=== PATIENT | female | born 1965 | race Caucasian/White ===

== ENCOUNTER 2020-12-07 09:08 | Emergency (ER) | payer OTHER, SELFPAY ==
--- NOTE | ~2020-12-07 | CT_ITS ---
EXAMINATION: CT brain wo con DATE: 12/07/2020 11:59 INDICATION: Altered mental status TECHNIQUE: Computed tomography (CT) of the head was performed without intravenous contrast. Sagittal and coronal reconstructions were performed. The mA was adjusted according to patient size. Iterative reconstruction technique was employed. The dose-length product was 908.00 mGy-cm. COMPARISON: head CT dated 12/01/2014 FINDINGS: Moderate-sized region of encephalomalacia in the anterior left frontal lobe and small region in the a nterior left temporal lobe which could represent sequela of prior infarct or trauma. Additional uncha nged small old lacunar infarct at the posterior left basal ganglia. There is moderate scattered white matter hypoattenuation consistent with chronic small vessel ischemic disease. No acute intracranial hemorrhage, acute infarction or abnormal extra axial fluid collection. Symmetric prominence of the luis lci and ventricles consistent with moderate age-appropriate diffuse cerebral and cerebellar volume lo ss. No mass/mass effect. The orbits, paranasal sinuses and mastoid air cells are normal. IMPRESSION: 1. No acute intracranial process. 2. Unchanged regions of encephalomalacia in the anterior left frontal and temporal lobes which could represent sequela of prior infarct or trauma. 3. Small old lacunar infarct at the left basal ganglia. 4. Age-related changes including moderate diffuse volume loss and moderate scattered white matter hyp oattenuation consistent with chronic small vessel ischemic disease. Reviewed, dictated and finalized at location A. IMPRESSION: 1. No acute intracranial process. 2. Unchanged regions of encephalomalacia in the anterior left frontal and tempo ral lobes which could represent sequela of prior infarct or trauma. 3. Small old lacunar infarct at the left basal ganglia. 4. Age-related changes including moderate diffuse volume loss and moderate scat tered white matter hypoattenuation consistent with chronic small vessel ischemi c disease.
[2020-12-07 08:41] VITALS: BP 144/106; PULSE 99; RESP 18; TEMP 36.6; O2SAT 95
--- NOTE | 2020-12-07 08:54 | ECG_ITS ---
Measurements Intervals [place] Rate: 91 P: 64 WI: 156 QRS: -9 QRSD: 82 T: 52 QT: 354 QTc: 437 Interpretive Statements SINUS RHYTHM DELAYED PRECORDIAL R/S TRANSITION BASELINE ARTIFACT- II, III, AVR, AVL, AVF, V1-V6 BORDERLINE ECG Electronically Signed On 12-07-2020 12:16:17 CDT by Varun Stearns D.O.
--- NOTE | 2020-12-07 09:09 | ED.GENADULT ---
HPI - General Adult General Chief complaint: Recheck/Abnormal Lab/Rx Stated complaint: elevated dilantin levels Source: patient and EMS History of Present Illness HPI narrative: Patient is a 54 y/o female sent from [place] for elevated Dilantin level. Patient had labs drawn on 11/27, approximately 10 days ago. The results showed Dilantin of 27. She is poor historian, but has no complaint at this time. She denies any pain. Related Data Home Medications Medication Instructions Recorded Confirmed Pro-Stat AWC 12/07/20 acetaminophen [Tylenol] 650 mg PO Q4-5H PRN 12/07/20 bisacodyl 10 mg PO ONCE 12/07/20 divalproex mg PO 12/07/20 donepezil [Aricept] 5 mg PO HS 12/07/20 furosemide [Lasix] 20 mg PO DAILY 12/07/20 gabapentin 300 mg PO TID 12/07/20 lorazepam [Ativan] 1 mg PO BID 12/07/20 mirtazapine [Remeron] 7.5 mg PO HS 12/07/20 ahbhxbptchct-ojk-pjul-FA-vit K tablet PO 12/07/20 [Adults Multivitamin] olanzapine 5 mg PO HS 12/07/20 oxycodone mg PO 12/07/20 phenytoin sodium extended 100 mg PO DAILY 12/07/20 [Dilantin Extended] polyethylene glycol 3350 [Miralax] 17 g PO DAILY 12/07/20 sennosides [senna] 8.6 mg PO BID 12/07/20 warfarin [Coumadin] 4 mg PO DAILY 12/07/20 Allergies Allergy/AdvReac Type Severity Reaction Status Date / Time cephalexin [From Keflex] Allergy Unknown Verified 12/07/20 08:48 Review of Systems Review of Systems: ROS unobtainable: Yes unobtainable due to mental status Exam Const: General: no acute distress and well developed Orientation/consciousness: oriented to person, oriented to place and confusion HENMT: Head: normocephalic Ears: external ears normal General nose exam: Normal external nose present Eyes: General: appearance normal, both eyes and all related structures Conjunctivae: conjunctivae normal Neck: Neck: normal visual inspection and full ROM Chest: Chest palpation & inspection: normal inspection of the chest and no tenderness Resp: Effort & Inspection: normal respiratory effort Auscultation: clear to auscultation bilaterally Cardio: Rate: regular rate Rhythm: regular rhythm GI: GI Palp: No abdominal tenderness and Yes Soft to palpation Skin: General skin exam: normal color and turgor normal Neuro: General: oriented to person, oriented to place and confusion Cognition (Neuro): normal cognition Extrem: General: full ROM and amputation noted Above the knee: bilateral Psych: Appearance: grossly normal Mental Status: mental status grossly normal Affect: normal affect Course Consultations Consultation #1: Discussed with MINE DEVELOPMENT ENGINEER Camille Longo (patient's care provider) about labs. She states that patient also has somewhat confused lately. Will do head CT and UA. Plan discharge if those are negative. Date: 12/07/20 Time: 11:40 Vital Signs Vital signs: Vital Signs Temperature 36.6 C 12/07/20 08:41 Pulse Rate 99 12/07/20 08:41 Respiratory Rate 18 12/07/20 08:41 Blood Pressure 144/106 H 12/07/20 08:41 Pulse Oximetry 95 12/07/20 08:41 Temperature 36.6 C 12/07/20 08:41 Pulse Rate 82 12/07/20 15:31 Respiratory Rate 20 12/07/20 15:31 Blood Pressure 136/78 12/07/20 15:31 Pulse Oximetry 97 12/07/20 15:31 Medical Decision Making Vital Signs Vital Signs: Vital Signs Temperature 36.6 C 12/07/20 08:41 Pulse Rate 99 12/07/20 08:41 Respiratory Rate 18 12/07/20 08:41 Blood Pressure 144/106 H 12/07/20 08:41 Pulse Oximetry 95 12/07/20 08:41 Temperature 36.6 C 12/07/20 08:41 Pulse Rate 82 12/07/20 15:31 Respiratory Rate 20 12/07/20 15:31 Blood Pressure 136/78 12/07/20 15:31 Pulse Oximetry 97 12/07/20 15:31 Lab Data Result diagrams: 12/07/20 09:48 12/07/20 09:48 Labs: Lab Results 12/07/20 12/07/20 12/07/20 Range/Units 09:48 09:48 09:48 WBC 6.8 (4.5-10.0) K/mm3 RBC 4.78 (4.2-5.4) M/mm3 Hgb 14.3 (12.0-15.0) g/dL Hct 45.5 (37.0-47.0) % M
[2020-12-07 10:17] VITALS: BP 150/108; PULSE 89; RESP 18; O2SAT 98
[2020-12-07 10:23] LABS: Basophils Percent Auto 0.4 % (0.2-1.2); Eosinophils Percent Auto 0.4 % (0-4.4); Hematocrit 45.5 % (37.0-47.0); Hemoglobin 14.3 g/dL (12.0-15.0); Immature Granulocyte Absolute 0.04 K/mm3 (0.00-0.031); Immature Granulocyte Percent A 0.6 % (0-0.5); Lymphocytes Percent Auto 38.2 % (18.3-44.2); Mean Corpuscular HGB Conc 31.4 g/dl (32-36); Mean Corpuscular Hemoglobin 29.9 pg (26-34); Mean Corpuscular Volume 95.2 fl (80-100); Mean Platelet Volume 9.1 fl (7.4-10.4); Monocytes Absolute Auto 0.5 K/mm3 (0.1-0.6); Monocytes Percent Auto 6.8 % (2.6-8.5); Neutrophils Absolute Auto 3.6 K/mm3 (1.3-6.7); Neutrophils Percent Auto 53.6 % (45.5-73.1); Platelet Count Result 464 k/mm3 (150-375); Red Blood Count 4.78 M/mm3 (4.2-5.4); Red Cell Distribution Width 18.9 % (11.5-14.5); White Blood Count 6.8 K/mm3 (4.5-10.0)
[2020-12-07 10:34] LABS: Alanine Aminotransferase 87 U/L (4-35); Albumin Level 4.5 g/dL (3.5-5.1); Alkaline Phosphatase 154 U/L (38-126); Anion Gap 12 mmol/L (8-16); Aspartate Amino Transferase 57 U/L (14-36); Bilirubin,Total 0.3 mg/dL (0.2-1.3); Blood Urea Nitrogen 11 mg/dL (7-17); Calcium 9.7 mg/dL (8.4-10.2); Carbon Dioxide 21 mmol/L (22-30); Chloride 109 mmol/L (98-107); Estimated Glomerular Filt Rate > 60; Glucose 119 mg/dL (65-110); Potassium 4.2 mmol/L (3.4-5.0); Sodium 142 mmol/L (137-145)
[2020-12-07 10:49] LABS: Phenytoin Dilantin 5 ug/mL (10-20)
[2020-12-07 12:35] VITALS: BP 139/94; PULSE 88; RESP 16; O2SAT 96
[2020-12-07 14:11] LABS: Add Urine Microscopic? YES; Appearance Urine Clear (Clear); Bilirubin Urine Negative (Negative); Blood Urine Negative (Negative); Color Urine Straw (Yellow); Glucose Urine UA Negative (Negative); Ketones Urine Negative (Negative); Leukocyte Esterase Ur Negative LEU/UL (Negative); Nitrate Urine Negative (Negative); Protein Urine Negative (Negative); RBC Urine 0-2 /hpf (0-2); Specific Grav Ur 1.012 (1.001-1.035); Urobilinogen Urine Negative mg/dL (<2.0); WBC Urine 0-3 /hpf
--- NOTE | 2020-12-07 15:25 | PC.NURSE ---
made contact with van to transfer pt back to [facility]. van is on their way now
[2020-12-07 15:31] VITALS: BP 136/78; PULSE 82; RESP 20; O2SAT 97
--- NOTE | 2020-12-07 15:32 | PC.NURSE ---
van has arrived and is aware the pt is going [facility]
--- NOTE | 2020-12-07 15:34 | PC.NURSE ---
Report given to [facility] at this time and transferred to [facility].
== END 2020-12-07 15:35 ==
PROVIDERS: Emergency Provider Emergency Medicine
DX: R41.82 Altered mental status, unspecified (principal); Z79.01 Long term (current) use of anticoagulants; R94.31 Abnormal electrocardiogram [ECG] [EKG]
CPT/HCPCS: 36415; 51701; 70450; 80053; 80185; 81001; 85025; 93005; 99284

== ENCOUNTER 2024-04-08 20:21 | Inpatient (IN) | payer OTHER, SELFPAY ==
--- NOTE | ~2024-04-08 | XR_ITS ---
Portable chest x-ray Comparison: 04/08/2024 Clinical History: Shock Findings: Right IJ line remains in place. Lungs are clear, without focal consolidation or definite p leural effusion. Cardiomediastinal silhouette is stable. Bones and soft tissues are unremarkable. Impression: Clear lungs. Right IJ line in place. Reviewed, dictated and finalized at location . IANCE SERVICE TECHNICIAN Impression: Clear lungs. Right IJ line in place.
--- NOTE | ~2024-04-08 | XR_ITS ---
CHEST RADIOGRAPH CLINICAL HISTORY: cough . COMPARISON: None available TECHNIQUE: Single portable view of the chest. FINDINGS The cardiomediastinal silhouette is unremarkable. The lungs are clear. Visualized osseous structures and soft tissues are unremarkable. IMPRESSION: No focal infiltrate or effusion. Reviewed, dictated and finalized at location A. OGRAMMETRIC SURVEYOR
--- NOTE | ~2024-04-08 | XR_ITS ---
XR chest 1V portable 04/13/2024 08:27 Indication: Hypoxia Procedure: AP portable chest Comparison: Comparison to multiple prior studies sequentially, with oldest reviewed study dated 10/20. Findings: Right IJ central line tip in the SVC. Chronic elevation of the left diaphragm. Left basilar atelectasis. Stable cardiomediastinal silhouette. Mild diffuse bilateral interstitial infiltrates. N o significant effusion. No pneumothorax. Impression: 1: Mild diffuse bilateral interstitial infiltrates which may represent edema or pneumonia. Reviewed, dictated and finalized at location B. ORK SPECIALIST Impression: 1: Mild diffuse bilateral interstitial infiltrates which may represent edema or pneumonia.
--- NOTE | ~2024-04-08 | CT_ITS ---
Clinical Indication: Sepsis CT Scan of the Chest, Abdomen, and Pelvis with Contrast: Technique: Contiguous sections were acquired throughout the chest, abdomen, and pelvis after intraven ous administration of 100 cc of Omnipaque 350. Dose reduction technique was used on this scan by anthony forteing automated exposure control and iterative reconstruction technique. The dose-length product (DL P) was 953.65 mGy-cm. Findings: There is no evidence of any significant mediastinal, hilar or axillary lymphadenopathy. The mediastin al soft tissues appear normal. There is no evidence of pleural or pericardial effusion. The lungs are clear, aside from mild bibasilar/dependent atelectatic changes. The liver, spleen, pancreas, gallbladder, adrenals and kidneys are within normal limits. There is ext ensive atherosclerotic calcification of the abdominal aorta, with occlusion of the aorta at its infra renal portion. There is probable partial reconstitution at the bilateral common femoral arteries. No lymphadenopathy. Suspected minimal diffuse large bowel wall thickening. No bowel obstruction. Small bowel unremarkable . Urinary bladder is unremarkable, aside from Rock catheter. No pelvic mass seen. No ascites. T12 comp ression fracture present. Impression: Suspected minimal diffuse large bowel wall thickening. Correlate for infectious/inflammatory colitis, or any possibility of early ischemic bowel. Atherosclerotic calcification of the aorta with complete occlusion of the aorta at its infrarenal asp ect. Probable partial reconstitution at the level of the bilateral common femoral arteries. Consider vascular surgery consultation/follow-up as indicated. Reviewed, dictated and finalized at [facility]. RCYCLE SUBASSEMBLER Impression: Suspected minimal diffuse large bowel wall thickening. Correlate for infectious /inflammatory colitis, or any possibility of early ischemic bowel. Atherosclerotic calcification of the aorta with complete occlusion of the aorta at its infrarenal aspect. Probable partial reconstitution at the level of the bilateral common femoral arteries. Consider vascular surgery consultation/follo w-up as indicated.
--- NOTE | ~2024-04-08 | XR_ITS ---
CHEST RADIOGRAPH CLINICAL HISTORY: line placement . COMPARISON: 04/08/2024 (approximately 2 hours earlier) TECHNIQUE: Single portable view of the chest. FINDINGS Interval placement of a right internal jugular central venous catheter with its tip projecting over t he cavoatrial junction. The remainder of the cardiomediastinal silhouette is otherwise unremarkable. The remainder of the cardiomediastinal silhouette is otherwise unremarkable. The right lung is completely expanded. Blunting of the left costophrenic sulcus is present suggesting a small left-sided pleural effusion. The remainder of the lungs are clear. IMPRESSION: Small left-sided pleural effusion without focal infiltrate. Right internal jugular central venous catheter in excellent position and ready for immediate use. Reviewed, dictated and finalized at location A. FRAMER MACHINE
--- NOTE | ~2024-04-08 | CT_ITS ---
CT head without contrast Indication: Altered mental status COMPARISON: 12/07/2020 Technique: Serial scans were obtained through the brain without the administration of contrast. Dose reduction technique was used on this scan by utilizing automated exposure control and iterative recon struction technique. The dose-length product (DLP) was 681.00 mGy-cm. Findings: There is no evidence of intracranial hemorrhage, mass lesion, or acute infarct. Chronic lef t frontal lobe infarct noted. The ventricles and subarachnoid spaces are dilated, consistent with mod erate atrophy. There is more pronounced cerebellar atrophy. Low attenuation regions are seen within t he periventricular white matter bilaterally, likely representing changes from chronic microvascular i schemic disease. There is no evidence of edema, mass effect or midline shift. The visualized parana bam sinuses and mastoid air cells are clear. Impression: No intracranial hemorrhage, mass, or acute infarct. Moderate generalized cerebral atrophy, with more pronounced, severe cerebellar atrophy. Chronic left frontal lobe infarct with background chronic microvascular ischemic changes in the white matter. Reviewed, dictated and finalized at location . TRIMMING MACHINE OPERATOR Impression: No intracranial hemorrhage, mass, or acute infarct. Moderate generalized cerebral atrophy, with more pronounced, severe cerebellar atrophy. Chronic left frontal lobe infarct with background chronic microvascular ischemi c changes in the white matter.
[2024-04-08 20:22] VITALS: BP 87/61; PULSE 73; RESP 28; TEMP 36.2; O2SAT 92
--- NOTE | 2024-04-08 20:26 | ECG_ITS ---
Test Date: 2024-04-08 23:08:55 Measurements Intervals [place] Rate: 61 P: 68 GA: 167 QRS: -43 QRSD: 82 T: 39 QT: 463 QTc: 467 Interpretive Statements SINUS RHYTHM LEFT AXIS DEVIATION [QRS AXIS < -30] LOW QRS VOLTAGE IN EXTREMITY LEADS [QRS DEFLECTION < 0.5 mV IN LIMB LEADS] POSSIBLE RIGHT VENTRICULAR CONDUCTION DELAY [RSR (QR) IN V1/V2] No previous ECG available for comparison Electronically Signed On 04-11-2024 16:49:29 FILM MASKER by Clayton Magana M.D.
--- NOTE | 2024-04-08 20:46 | ED_ITS ---
HPI - General Adult General Chief complaint: Altered Mental Status Stated complaint: SICK CASE, AMS, FEVER, LETHARGIC Time Seen by Provider: 04/08/24 20:23 History of Present Illness HPI narrative: Patient is 58-year-old female who presents emergency department with chief complaint of altered mental status per the nursing facility the patient had a low-grade fever and was lethargic. The facility reported the symptoms started yesterday otherwise history is limited. Patient has a state appointed guardian Related Data Home Medications ?Medication ?Instructions ?Recorded ?Confirmed ?Last Taken ?Type Pro-Stat AWC 12/07/20 Unknown History acetaminophen 325 mg tablet 650 mg PO Q4-5H PRN Pain 12/07/20 Unknown History (Tylenol) bisacodyl 5 mg tablet 10 mg PO ONCE 12/07/20 Unknown History divalproex 250 mg tablet,extended mg PO 12/07/20 Unknown History release 24 hr donepezil 5 mg tablet (Aricept) 5 mg PO HS 12/07/20 Unknown History furosemide 20 mg tablet (Lasix) 20 mg PO DAILY 12/07/20 Unknown History gabapentin 300 mg tablet 300 mg PO TID 12/07/20 Unknown History lorazepam 1 mg tablet (Ativan) 1 mg PO BID 12/07/20 Unknown History mirtazapine 15 mg tablet (Remeron) 7.5 mg PO HS 12/07/20 Unknown History multivit with minerals-iron 18 tablet PO 12/07/20 Unknown History mg-folic ac 400 mcg-vit K 25 mcg tablet (Adults Multivitamin) olanzapine 5 mg tablet 5 mg PO HS 12/07/20 Unknown History oxycodone 10 mg tablet,extended mg PO 12/07/20 Unknown History release,12 hr phenytoin sodium extended 100 mg 100 mg PO DAILY 12/07/20 Unknown History capsule (Dilantin Extended) polyethylene glycol 3350 17 gram 17 g PO DAILY 12/07/20 Unknown History oral powder packet (Miralax) sennosides 8.6 mg tablet (senna) 8.6 mg PO BID 12/07/20 Unknown History warfarin 4 mg tablet 4 mg PO DAILY 12/07/20 Unknown History Allergies Allergy/AdvReac Type Severity Reaction Status Date / Time cephalexin (From Keflex) Allergy Unknown Verified 12/07/20 08:48 Review of Systems 2 Review of Systems: A 10 system review of systems was completed on the patient and is negative except for what is stated in the HPI. Nursing and ancillary documentation was reviewed. [facility], [facility] Past Medical History Medical History (Updated 04/09/24 @ 02:24 by Reed Rodriguez MD) CVA (cerebral vascular accident) CT evidence encephalomalacia left frontal lobe Insomnia Epilepsy COPD (chronic obstructive pulmonary disease) Autonomic neuropathy Pulmonary embolism Tobacco abuse disorder Hyperlipidemia Essential hypertension Peripheral artery disease Dementia with psychosis Schizophrenia Surgical History Surgical History (Updated 04/09/24 @ 01:52 by Elise Mathew DO) Status post open reduction with internal fixation of fracture Right hip History of coronary artery stent placement Status post bilateral above knee amputation Family History Family History (Updated 04/09/24 @ 01:52 by Elise Mathew DO) Other Unknown family medical history Exam 2 Narrative: GENERAL: Ill-appearing, well-nourished, and in no acute distress. HEAD: Normocephalic, atraumatic. EYES: PERRLA and EOMI. ENT: Nares clear, no rhinorrhea or epistaxis. Mucous membranes moist. NECK: Supple. CHEST: Clear to auscultation. No respiratory distress. HEART: Regular rate and rhythm. No murmur heard. Normal peripheral pulses. ABDOMEN: Soft, nontender, nondistended, normal active bowel sounds. EXTREMITIES: Normal range of motion bilateral lower extremity amputations. No edema. SKIN: Warm, dry, no rash. NEURO: No focal deficits. Opens eyes spontaneously noncommunicative PSYCH: Normal mood and affect. Course Vital Signs Vital signs: Vital Signs Temperature 36.2 C L 04/08/24 20:22 Pulse Rate 73 04/08/24 20:22 Respiratory Rate 28 H 04/08/24 20:22 Blood Pressure 87/61 L 04/08/24 20:22 Pulse Oximetry 92 04/08/24 20:22 Oxygen Delivery Room Air 04/08/24 20:22 Temperature 36.2 C L 04/08/24 20:22 Pulse Rate 60 04/09/24 01:53 Respiratory Rate 18 04/09/24 01:53 Blood Pressure 95/77 L 04/09/24 01:53 Pulse Oximetry 97 04/09/24 01:53 Oxygen Delivery Room Air 04/09/24 00:18 Procedures Central Line Placement Right IJ: Central Line Date: 04/08/24 Central Line Time: 22:00 Performed Emergently - Given emergent patient condition, temporal constraints may have precluded informed consent.: Yes Time Out Performed: Yes Patient Placed on Monitor/Pulse Ox: Yes Max. Sterile Barrier Technique: Caps, large sterile sheet and hand hygiene Central Line Prep: 2% chlorhexidine scrub and sterile drapes applied Technique: sterile prep/drape Local Anesthetic: lidocaine 1% Amount of anesthesia used (mL): 5 Ultrasound Used for Placement: Yes Central Line Lumen Inserted: triple Post Procedure: sutured in place, good blood return, all ports aspirated, flushed, capped and sterile dressing applied Post Procedure X-Ray: tip of catheter in good position and no pneumothorax seen Patient Tolerated Procedure: well Complications: none Medical Decision Making MDM Narrative Medical decision making narrative: Differential diagnosis includes pneumonia, UTI, sepsis, ACS, Patient is negative for COVID flu RSV laboratory studies were obtained on the patient showed a CBC with a white count of 8.5 hemoglobin was 11.7 Lactate was normal Troponin was negative CT scan of the chest abdomen pelvis showed no acute abnormality Vital Signs Vital Signs: Vital Signs Temperature 36.2 C L 04/08/24 20:22 Pulse Rate 73 04/08/24 20:22 Respiratory Rate 28 H 04/08/24 20:22 Blood Pressure 87/61 L 04/08/24 20:22 Pulse Oximetry 92 04/08/24 20:22 Oxygen Delivery Room Air 04/08/24 20:22 Temperature 36.2 C L 04/08/24 20:22 Pulse Rate 60 04/09/24 01:53 Respiratory Rate 18 04/09/24 01:53 Blood Pressure 95/77 L 04/09/24 01:53 Pulse Oximetry 97 04/09/24 01:53 Oxygen Delivery Room Air 04/09/24 00:18 Lab Data 04/08/24 22:23 04/08/24 22:23 Labs: Lab Results 04/08/24 04/08/24 Range/Units 22:23 22:36 WBC 8.5 (4.5-10.0) K/mm3 RBC 3.84 L (4.2-5.4) M/mm3 Hgb 11.7 L (12.0-15.0) g/dL Hct 35.1 L (37.0-47.0) % MCV 91.4 (80-100) fl MCH 30.5 (26-34) pg MCHC 33.3 (32-36) g/dl RDW 14.5 (11.5-14.5) % Plt Count 219 D (150-375) k/mm3 MPV 9.9 (7.4-10.4) fl Immature Gran % (Auto) 0.2 (0-0.5) % Neut % (Auto) 60.5 (45.5-73.1) % Lymph % (Auto) 31.7 (18.3-44.2) % Parker % (Auto) 7.3 (2.6-8.5) % Eos % (Auto) 0.2 (0-4.4) % Baso % (Auto) 0.1 L (0.2-1.2) % Lymph # (Auto) 2.69 (0.9-3.2) K/mm3 Parker # (Auto) 0.6 (0.1-0.6) K/mm3 Eos # (Auto) 0.0 (0-0.3) K/mm3 Baso # (Auto) 0.0 (0.0-0.1) K/mm3 Abs Immat Gran (auto) 0.02 (0.00-0.031) K/mm3 Absolute Neuts (auto) 5.1 (1.3-6.7) K/mm3 Absolute Nucleated RBC 0.000 (0.0-0.012) K/mm3 Nucleated RBC % 0.0 (0.0-0.2) % PT 15.2 H (11.1-14.7) Seconds INR 1.2 APTT 34.8 (22.3-36.8) Seconds Sodium 138 (137-145) mmol/L Potassium 3.5 (3.4-5.0) mmol/L Chloride 109 H (98-107) mmol/L Carbon Dioxide 25 (22-30) mmol/L Anion Gap 4 (4-12) mmol/L BUN 10 (7-17) mg/dL Creatinine 0.50 L (0.7-1.0) mg/dL Estim Creat Clear Calc 92 ml/min Estimated GFR > 60 (59 - ) Glucose 93 (65-110) mg/dL Lactic Acid 0.8 (0.7-2.0) mmol/L Calcium 8.3 L (8.4-10.2) mg/dL Magnesium 2.1 (1.6-2.3) mg/dL Total Bilirubin 0.4 (0.2-1.3) mg/dL AST 36 (14-36) U/L ALT 21 (6-35) U/L Alkaline Phosphatase 80 (38-126) U/L Ammonia 24 (9-30) umol/L Troponin I < 0.012 (0.000-0.034) ng/mL Total Protein 5.0 L (6.3-8.2) g/dL Albumin 3.0 L (3.5-5.1) g/dL Lipase 130 (23-300) U/L Procalcitonin 0.1 ng/mL Urine Color Dark yellow (Yellow) Urine Appearance Clear (Clear) Urine pH 6.5 (5.0-9.0) Ur Specific Helm 1.028 (1.001-1.035) Urine Protein Negative (Negative) mg/dL Urine Glucose (UA) Negative (Negative) mg/dL Urine Ketones 1+ H (Negative) mg/dL Ur Blood (Man) Negative (Negative) Urine Nitrate Negative (Negative) Urine Bilirubin 1+ H (Negative) Urine Urobilinogen 1.0 (<2.0) mg/dL Leukocyte Esterase Rfl Trace H (Negative) JABARI/UL Urine RBC 0-2 (0-2) /hpf Urine WBC 0-5 (0-3) /hpf Ur Squamous Epith Cells None seen (Few) /hpf Urine Bacteria None seen /hpf Urine Casts 0-2 Urine Opiates Screen Negative (Negative) Urine Methadone Screen Negative (Negative) Ur Barbiturates Screen Negative (Negative) Valproic Acid 85.5 (50-120) ug/mL Ur Phencyclidine Scrn Negative (Negative) Ur Amphetamine Screen Negative (Negative) U Benzodiazepines Scrn Negative (Negative) Urine Cocaine Screen Negative (Negative) U Cannabinoids Screen Negative (Negative) Ethyl Alcohol < 10 (<10) mg/dL Influenza A (RT-PCR) Negative (Negative) Influenza B (RT-PCR) Negative (Negative) RSV (RT-PCR) Negative (Negative) SARS-CoV-2 RNA (RT-PCR) Negative (Negative) ABG Data ABG results: 04/08/24 20:39 Puncture Site Right radial ABG pH 7.454 H ABG pCO2 31.2 L ABG pO2 67.9 L ABG PO2/FiO2 Ratio 3.23 ABG HCO3 21.4 L ABG O2 Saturation 94.6 L ABG O2 Content 16.2 ABG Base Excess -1.7 A-a Gradient 44.5 Oxyhemoglobin 93.0 Total Hemoglobin 12.4 O2 Delivery Device Not Reportable O2 Liters/Min Not Reportable FiO2 21 Critical Care Time Critical Care Time Critical Care Time: Yes Total Critical Care Time: 75 Discharge Plan Discharge Clinical Impression: Shock, Acute hypoxic respiratory failure Patient Language: Wallisian Prescriptions: No Action sennosides [senna] 8.6 mg Tablet 8.6 mg PO BID acetaminophen [Tylenol] 325 mg Tablet 650 mg PO Q4-5H PRN (Reason: Pain) donepezil [Aricept] 5 mg Tablet 5 mg PO HS polyethylene glycol 3350 [Miralax] 17 gram Powder In Packet 17 g PO DAILY olanzapine 5 mg Tablet 5 mg PO HS phenytoin sodium extended [Dilantin Extended] 100 mg Capsule 100 mg PO DAILY warfarin [Coumadin] 4 mg Tablet 4 mg PO DAILY oxycodone 10 mg Tablet Extended Release 12 Hr PO furosemide [Lasix] 20 mg Tablet 20 mg PO DAILY mirtazapine [Remeron] 15 mg Tablet 7.5 mg PO HS lorazepam [Ativan] 1 mg Tablet 1 mg PO BID bisacodyl 5 mg Tablet 10 mg PO ONCE divalproex 250 mg Tablet Extended Release 24 Hr PO gabapentin 300 mg Tablet 300 mg PO TID Adults Multivitamin 18 mg iron-400 mcg-25 mcg Tablet PO Pro-Stat AWC Follow-up/Referrals: PHYSICIAN,OFFICE BOOKKEEPER [Primary Care Provider] - Time of Disposition: 02:24
[2024-04-08 20:58] LABS: Alveolar/Arterial O2 Gradient 44.5 mmHg; Base Excess ABG -1.7 mEq/l (+/-2.0); Fractional Inspired Oxygen 21 %; HCO3 ABG 21.4 mEq/l (22.0-26.0); Oxygen Content ABG 16.2 %vol (16.0-22.0); Oxygen Saturation ABG 94.6 % (95.0-100.0); PCO2 ABG 31.2 mmHg (35.0-45.0); PO2 ABG 67.9 mmHg (80.0-100.0); PO2 FiO2 Ratio Arterial Blood 3.23 %; Total Hemoglobin 12.4 g/dL (12.0-18.0); pH ABG 7.454 (7.350-7.450)
[2024-04-08 21:00] LABS: Modified Allen's Test Pass; Site Drawn RIGHT RADIAL
[2024-04-08 22:31] LABS: Basophils Percent Auto 0.1 % (0.2-1.2); Eosinophils Percent Auto 0.2 % (0-4.4); Hematocrit 35.1 % (37.0-47.0); Hemoglobin 11.7 g/dL (12.0-15.0); Immature Granulocyte Absolute 0.02 K/mm3 (0.00-0.031); Immature Granulocyte Percent A 0.2 % (0-0.5); Lymphocytes Absolute Auto 2.69 K/mm3 (0.9-3.2); Lymphocytes Percent Auto 31.7 % (18.3-44.2); Mean Corpuscular HGB Conc 33.3 g/dl (32-36); Mean Corpuscular Hemoglobin 30.5 pg (26-34); Mean Corpuscular Volume 91.4 fl (80-100); Mean Platelet Volume 9.9 fl (7.4-10.4); Monocytes Absolute Auto 0.6 K/mm3 (0.1-0.6); Monocytes Percent Auto 7.3 % (2.6-8.5); Neutrophils Absolute Auto 5.1 K/mm3 (1.3-6.7); Neutrophils Percent Auto 60.5 % (45.5-73.1); Platelet Count Result 219 k/mm3 (150-375); Red Blood Count 3.84 M/mm3 (4.2-5.4); Red Cell Distribution Width 14.5 % (11.5-14.5); White Blood Count 8.5 K/mm3 (4.5-10.0)
[2024-04-08] MEDS: SODIUM CHLORIDE 0.9% IV 1,000 ML 999 ML IV CONT ×2 (22:43→22:44)
[2024-04-08 22:44] LABS: INR 1.2; Prothrombin Time 15.2 Seconds (11.1-14.7)
[2024-04-08 22:45] LABS: Partial Thromboplastin Time 34.8 Seconds (22.3-36.8)
[2024-04-08 22:54] LABS: Add Urine Microscopic? YES; Appearance Urine Clear (Clear); Bacteria Urine None Seen /hpf; Bilirubin Urine 1+ (Negative); Blood Urine Negative (Negative); Color Urine Dark Yellow (Yellow); Glucose Urine UA Negative (Negative); Ketones Urine 1+ mg/dL (Negative); Leukocyte Esterase Ur Trace LEU/UL (Negative); Nitrate Urine Negative (Negative); Non Pathogenic Casts 0-2; Protein Urine Negative (Negative); RBC Urine 0-2 /hpf (0-2); Specific Grav Ur 1.028 (1.001-1.035); Squamous Epithelial Cell Urine None Seen /hpf (Few); WBC Urine 0-5 /hpf (0-3); pH Urine 6.5 (5.0-9.0)
[2024-04-08 23:05] LABS: Alanine Aminotransferase 21 U/L (6-35); Alkaline Phosphatase 80 U/L (38-126); Ammonia 24 umol/L (9-30); Anion Gap 4 mmol/L (4-12); Aspartate Amino Transferase 36 U/L (14-36); Bilirubin,Total 0.4 mg/dL (0.2-1.3); Blood Urea Nitrogen 10 mg/dL (7-17); Calcium 8.3 mg/dL (8.4-10.2); Carbon Dioxide 25 mmol/L (22-30); Chloride 109 mmol/L (98-107); Estimated CRCL calculation 92 ml/min; Estimated Glomerular Filt Rate > 60; Ethanol < 10 mg/dL (<10); Glucose 93 mg/dL (65-110); Lipase 130 U/L (23-300); Magnesium 2.1 mg/dL (1.6-2.3); Potassium 3.5 mmol/L (3.4-5.0); Sodium 138 mmol/L (137-145)
[2024-04-08 23:08] LABS: Valproic Acid 85.5 ug/mL (50-120)
[2024-04-08 23:16] LABS: Amphetamine Screen Urine Negative (Negative); Barbiturate Screen Urine Negative (Negative); Benzodiazepines Screen Urine Negative (Negative); Cannabinoid Screen Urine Negative (Negative); Cocaine Screen Urine Negative (Negative); Methadone Screen Urine Negative (Negative); Opiate Screen Urine Negative (Negative); Phencyclidine Screen Urine Negative (Negative)
[2024-04-08 23:30] LABS: Procalcitonin 0.1 ng/mL
[2024-04-08 23:32] LABS: Troponin I < 0.012 ng/mL (0.000-0.034)
[2024-04-08 23:39] LABS: Lactic Acid Reflex 0.8 mmol/L (0.7-2.0)
[2024-04-08 23:42] LABS: Influenza A QL RT-PCR Negative (Negative); Influenza B QL RT-PCR Negative (Negative); RSV RNA, RT-PCR Negative (Negative); SARS-CoV-2 RNA PCR Negative (Negative)
[2024-04-09] VITALS (27 sets, daily range): BP systolic 74–186; BP diastolic 48–102; PULSE 50–134; RESP 10–30; TEMP 36.3–37.6; O2SAT 94–99; BMI 19.7
--- NOTE | 2024-04-09 01:25 | P.HP_ITS ---
H&P: HPI History of Present Illness Date/Time: 04/09/24 01:25 Chief Complaint: altered mental status Narrative: 58-year-old female with a past medical history of peripheral artery disease status post bilateral above knee amputations, schizophrenia, pulmonary embolism, tobacco use, essential hypertension, autonomic neuropathy on midodrine, dementia with psychosis, seizure disorder, COPD, hyperlipidemia and obstructive uropathy who presented to the ER via EMS from [facility] due to lethargy and altered mental status. Her EMS radio report the patient had been having fever at the halfway for several days. Patient's temperature on EMS arrival 99.8. Patient was afebrile on presentation to the hospital. She was obtunded and would not respond to verbal stimuli initially. She was hypotensive on arrival. Blood pressures initially improved with 2 L fluid bolus but had recurrent hypotension despite 30 mL/kilos fluid resuscitation. She did have improved mentation after fluid resuscitation and was able to answer questions regarding her name. She initially stated the wrong last name but was able to correct herself after multiple attempts. She could not tell me her age and thought that the month was April in that the year was 2027. Oxygen saturations in the field was 89% on room air. Patient is placed on 2 L nasal cannula off and has been satting 92-96% since arrival. Review of Systems 2 Review of Systems: ROS unobtainable: Yes unobtainable due to medical condition (Schizophrenia and dementia) and unobtainable due to mental status PMFSH Past Medical History Medical History (Updated 04/09/24 @ 02:24 by Reed Rodriguez MD) CVA (cerebral vascular accident) CT evidence encephalomalacia left frontal lobe Insomnia Epilepsy COPD (chronic obstructive pulmonary disease) Autonomic neuropathy Pulmonary embolism Tobacco abuse disorder Hyperlipidemia Essential hypertension Peripheral artery disease Dementia with psychosis Schizophrenia Surgical History Surgical History (Updated 04/09/24 @ 01:52 by Elise Mathew DO) Status post open reduction with internal fixation of fracture Right hip History of coronary artery stent placement Status post bilateral above knee amputation Family History Family History (Updated 04/09/24 @ 01:52 by Elise Mathew DO) Other Unknown family medical history Social History Social History (Updated 04/09/24 @ 02:31 by Elise Mathew DO) Social History: The patient resides at [facility]. She is a [employer]gos of the [employer]. Her state guardian is Tigre Rodriguez. Patient is a former smoker. Code status: Full code Smoking status: Former smoker Meds Home Medications and Allergies Home Medications ?Medication ?Instructions ?Recorded ?Confirmed ?Type Pro-Stat AWC 12/07/20 History acetaminophen 325 mg tablet 650 mg PO Q4-5H PRN Pain 12/07/20 History (Tylenol) bisacodyl 5 mg tablet 10 mg PO ONCE 12/07/20 History divalproex 250 mg tablet,extended mg PO 12/07/20 History release 24 hr donepezil 5 mg tablet (Aricept) 5 mg PO HS 12/07/20 History furosemide 20 mg tablet (Lasix) 20 mg PO DAILY 12/07/20 History gabapentin 300 mg tablet 300 mg PO TID 12/07/20 History lorazepam 1 mg tablet (Ativan) 1 mg PO BID 12/07/20 History mirtazapine 15 mg tablet (Remeron) 7.5 mg PO HS 12/07/20 History multivit with minerals-iron 18 tablet PO 12/07/20 History mg-folic ac 400 mcg-vit K 25 mcg tablet (Adults Multivitamin) olanzapine 5 mg tablet 5 mg PO HS 12/07/20 History oxycodone 10 mg tablet,extended mg PO 12/07/20 History release,12 hr phenytoin sodium extended 100 mg 100 mg PO DAILY 12/07/20 History capsule (Dilantin Extended) polyethylene glycol 3350 17 gram 17 g PO DAILY 12/07/20 History oral powder packet (Miralax) sennosides 8.6 mg tablet (senna) 8.6 mg PO BID 12/07/20 History warfarin 4 mg tablet 4 mg PO DAILY 12/07/20 History Allergies Allergy/AdvReac Type Severity Reaction Status Date / Time cephalexin (From Keflex) Allergy Unknown Verified 12/07/20 08:48 Vital Signs Vital Signs - 24 hr 04/08/24 20:22 04/09/24 00:13 04/09/24 00:15 Temperature 97.1 F L Pulse Rate 73 72 75 Respiratory Rate 28 H 28 H 26 H Blood Pressure 87/61 L Pulse Oximetry 92 95 94 Oxygen Delivery Room Air 04/09/24 00:16 04/09/24 00:18 Temperature Pulse Rate 75 Respiratory Rate 22 H Blood Pressure 93/48 L Pulse Oximetry 96 Oxygen Delivery Room Air Exam 2 Narrative: Weight 58.1 kg BMI 20.7 Const: Other: Acutely ill-appearing, appears older than stated age, debilitated, lying in bed with head of bed flat, disheveled HENMT: Other: Mucous membranes are dry, poor dentition with broken teeth, head is normocephalic atraumatic, tongue deviates slightly to the left, nasal cannula in Eyes: Other: Pupils are equal and reactive, bilateral cataracts noted, no scleral icterus, eyes appear sunken Neck: Other: Thyroid see feels somewhat firm on the left side possible enlargement, trachea midline, patient older head turned to the left Resp: Other: Decreased breath sounds at the bases, no increased work of breathing Cardio: Other: Mildly bradycardic, 1+ bilateral radial pulses GI: Other: Distended, soft, normoactive bowel sounds : Other: Rock catheter in place with turbid appearing urine Skin: Other: Generalized pallor, no open wounds or sores, bruise to the right buttock, thickened dry dark material under fingernails Neuro: Other: The patient is oriented to name only, she does follow simple commands, her tongue does deviate slightly to the a left, pupils are equal and reactive, she moves bilateral upper extremities equally, weaker on left than right exam limited due to patient condition Extrem: Other: Skin over stump sites of bilateral [id number] amputations intact, moves bilateral upper extremities equally but 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000 Nucleated RBC % 0.0 PT 15.2 H INR 1.2 APTT 34.8 Puncture Site Right radial ABG pH 7.454 H ABG pCO2 31.2 L ABG pO2 67.9 L ABG PO2/FiO2 Ratio 3.23 ABG HCO3 21.4 L ABG O2 Saturation 94.6 L ABG O2 Content 16.2 ABG Base Excess -1.7 A-a Gradient 44.5 Oxyhemoglobin 93.0 Total Hemoglobin 12.4 O2 Delivery Device Not Reportable O2 Liters/Min Not Reportable FiO2 21 Sodium 138 Potassium 3.5 Chloride 109 H Carbon Dioxide 25 Anion Gap 4 BUN 10 Creatinine 0.50 L Estim Creat Clear Calc 92 Estimated GFR > 60 Glucose 93 Lactic Acid 0.8 Calcium 8.3 L Magnesium 2.1 Total Bilirubin 0.4 AST 36 ALT 21 Alkaline Phosphatase 80 Ammonia 24 Troponin I < 0.012 Total Protein 5.0 L Albumin 3.0 L Lipase 130 Procalcitonin 0.1 Urine Color Dark yellow Urine Appearance Clear Urine pH 6.5 Ur Specific [place] 1.028 Urine Protein Negative Urine Glucose (UA) Negative Urine Ketones 1+ H Ur Blood (Man) Negative Urine Nitrate Negative Urine Bilirubin 1+ H Urine Urobilinogen 1.0 Leukocyte Esterase Rfl Trace H Urine RBC 0-2 Urine WBC 0-5 Ur Squamous Epith Cells None seen Urine Bacteria None seen Urine Casts 0-2 Urine Opiates Screen Negative Urine Methadone Screen Negative Ur Barbiturates Screen Negative Valproic Acid 85.5 Ur Phencyclidine Scrn Negative Ur Amphetamine Screen Negative U Benzodiazepines Scrn Negative Urine Cocaine Screen Negative U Cannabinoids Screen Negative Ethyl Alcohol < 10 Influenza A (RT-PCR) Negative Influenza B (RT-PCR) Negative RSV (RT-PCR) Negative SARS-CoV-2 RNA (RT-PCR) Negative Impressions Chest X-Ray 04/08/24 21:11 IMPRESSION: No focal infiltrate or effusion. Chest X-Ray 04/08/24 22:39 IMPRESSION: Small left-sided pleural effusion without focal infiltrate. Right internal jugular central venous catheter in excellent position and ready for immediate use. EKG: Sinus rhythm rate 61 QTC 467 left axis deviation low-voltage QRS possible right ventricular conduction delay All imaging and EKGs personally reviewed and interpreted. And unless stated otherwise agree with radiologic and cardiology interpretation. Assessment and Plan Assessment and plan (1) Shock: Code(s): R57.9 - Shock, unspecified Status: Acute (2) Acute hypoxic respiratory failure: Code(s): J96.01 - Acute respiratory failure with hypoxia Status: Acute Plan Shock indeterminate cause possibly due to sepsis versus hypovolemia cardiogenic cause less likely. Will check TSH, random cortisol. Will cover patient for possible sepsis of unknown origin. CT of chest abdomen pelvis did not demonstrate any localizing area of infection. Patient had 2 soft bowel movements downstairs but no overt diarrhea. Abdominal exam was benign. Patient does have acute hypoxic respiratory failure in the setting of chronic COPD. Possible underlying pneumonia not completely ruled out. Possibly and infectious cause may be elucidated after adequate IV fluid resuscitation. The patient remained hypotensive after 2 L of isotonic fluids in the ER. Subsequently patient was started on Levophed. Patient's blood pressures have improved on 5 of Levophed. Will aim for maps 65 over greater and systolic blood pressure is 90 or greater. Will hold the patient's home diuretic therapy. Patient does have evidence of encephalopathy but baseline mental status is not exactly known. Patient is slow to respond and thyroid feels generous on exam despite imaging not to demonstrating thyromegaly. Abnormal exam could be due to muscle spasm as patient does seem to have at least some component of torticollis towards the left. Will check TSH and random cortisol. The patient does have chronic autonomic dysfunction but persistent hypotension seems excessive for simple autonomic dysfunction. The patient does have history of seizure disorder will resume home anti epileptics. Patient be admitted to the ICU. 40 minute spent critical care activities. Due to a high probability of clinically significant, life threatening deterioration, the patient required my highest level of preparedness to intervene emergently and I personally spent this critical care time directly and personally managing the patient. This critical care time included obtaining a history; examining the patient; pulse oximetry; ordering and review of studies; arranging urgent treatment with development of a management plan; evaluation of patient's response to treatment; frequent reassessment; and discussions with other providers. It was exclusive of separately billable procedures and treating other patients and teaching time. Please see Assessment and Plan section and the rest of the note for further information on patient assessment and treatment. Quality VTE Prophylaxis VTE prophylaxis: pharmacologic ordered (Continue home Eliquis) Hospitalist MIPS Advance Care Plan I have confirmed that the patient's Advanced Care Plan is present, code status is documented, or surrogate decision maker is listed in patient medical record.: Yes Medication Reconciliation I have utilized all available resources to obtain, update and review the patients current medications (includes all prescriptions, OTC, herbals, cannabis, and nutritional supplements).: Yes
[2024-04-09] MEDS: NOREPINEPHRINE 8 MG/D5W 250 ML 8 MG/250 ML BAG 9.38 MG IV CONT (01:42)
[2024-04-09] MEDS: PIPERACILLN/TAZ 3.375GM/NS50ML 3.375 GM/50 ML BAG IVPB ×4 (02:55→20:48)
--- NOTE | 2024-04-09 03:10 | PC.NURSE ---
This patient, Rhonda Hall, was admitted to Intensive Care Unit-8. Patient/family oriented to hospital policies and general routines including ID bracelet, bed and alarms, visiting hours, pain management, procedures, bathroom and other care routines, personal items, smoking policy, room service/diet, and visiting hours. Information on how to activate the Rapid Response Team has been discussed. Patient/Family are encouraged to report perceived risks to care and to ask questions if they do not understand what they are told or what they should do.
[2024-04-09 03:13] LABS: Troponin I < 0.012 ng/mL (0.000-0.034)
[2024-04-09] MEDS: SODIUM CHLORIDE 0.9% IV 1,000 ML 100 ML IV CONT (03:21)
[2024-04-09] MEDS: VANCOMYCIN 1,500 MG/NS 500 ML 1,500 MG/500 ML BAG 250 MG IVPB (03:22)
[2024-04-09 03:30] LABS: Cortisol Random 7.77 ug/dL
[2024-04-09 04:37] LABS: MRSA (PCR) NOT DETECTED (NOT DETECTE)
[2024-04-09] MEDS: CENTRAL LINE FLUSH 10 ML IV PUSH ×2 (05:26→20:48)
[2024-04-09 08:45] LABS: Basophils Percent Auto 0.2 % (0.2-1.2); Eosinophils Percent Auto 0.2 % (0-4.4); Hematocrit 34.7 % (37.0-47.0); Hemoglobin 11.6 g/dL (12.0-15.0); Immature Granulocyte Absolute 0.03 K/mm3 (0.00-0.031); Immature Granulocyte Percent A 0.4 % (0-0.5); Lymphocytes Absolute Auto 2.21 K/mm3 (0.9-3.2); Lymphocytes Percent Auto 25.8 % (18.3-44.2); Mean Corpuscular HGB Conc 33.4 g/dl (32-36); Mean Corpuscular Hemoglobin 30.7 pg (26-34); Mean Corpuscular Volume 91.8 fl (80-100); Mean Platelet Volume 9.6 fl (7.4-10.4); Monocytes Absolute Auto 0.8 K/mm3 (0.1-0.6); Monocytes Percent Auto 8.9 % (2.6-8.5); Neutrophils Absolute Auto 5.5 K/mm3 (1.3-6.7); Neutrophils Percent Auto 64.5 % (45.5-73.1); Platelet Count Result 225 k/mm3 (150-375); Red Blood Count 3.78 M/mm3 (4.2-5.4); Red Cell Distribution Width 14.6 % (11.5-14.5); White Blood Count 8.6 K/mm3 (4.5-10.0)
[2024-04-09 08:51] LABS: Ammonia < 9 umol/L (9-30)
[2024-04-09 08:59] LABS: INR 1.2; Prothrombin Time 15.2 Seconds (11.1-14.7)
[2024-04-09 09:00] LABS: Partial Thromboplastin Time 32.1 Seconds (22.3-36.8)
[2024-04-09 09:15] LABS: Lactic Acid Reflex 0.6 mmol/L (0.7-2.0)
[2024-04-09 09:18] LABS: Alanine Aminotransferase 18 U/L (6-35); Albumin Level 2.9 g/dL (3.5-5.1); Alkaline Phosphatase 81 U/L (38-126); Anion Gap 6 mmol/L (4-12); Aspartate Amino Transferase 30 U/L (14-36); Bilirubin,Total 0.6 mg/dL (0.2-1.3); Blood Urea Nitrogen 5 mg/dL (7-17); CRP 4.7 mg/dL (<1.0); Calcium 7.7 mg/dL (8.4-10.2); Carbon Dioxide 24 mmol/L (22-30); Chloride 110 mmol/L (98-107); Creatine Kinase 769 U/L (30-135); Estimated CRCL calculation 94 ml/min; Estimated Glomerular Filt Rate > 60; Glucose 108 mg/dL (65-110); Magnesium 1.7 mg/dL (1.6-2.3); Phosphorus 2.7 mg/dL (2.5-4.5); Potassium 3.2 mmol/L (3.4-5.0); Sodium 140 mmol/L (137-145)
[2024-04-09] MEDS: ENOXAPARIN 40 MG/0.4 ML SYRINGE SUB-Q (10:13)
[2024-04-09] MEDS: MAGNESIUM SULF 2 GM/WATER 50ML 2 GM/50 ML BAG IVPB (11:14)
[2024-04-09] MEDS: KCL 40 MEQ/WATER 100 ML 100 ML 25 ML IVPB (11:14)
--- NOTE | 2024-04-09 12:20 | WPDCNINT ---
Assessment and Plan Assessment and plan (1) Shock: Code(s): R57.9 - Shock, unspecified Status: Acute Assessment and Plan: Patient presented with altered mental status, hypotension, refractory to IV fluid bolus per sepsis protocol, central line was inserted, patient started on Levophed -weaned to Levophed to maintain MAP > 65 mmHg -likely etiology colitis, chest x-ray, UA will within normal limits -adequately fluid-resuscitated -lactic acids have been normal -procalcitonin was 0.1 -WBC count was within normal limits -continue Zosyn and vancomycin (04/08) -04/08: Blood cultures were obtained and pending -if more volume expansion is required will start albumin (2) Colitis: Code(s): K52.9 - Noninfective gastroenteritis and colitis, unspecified Status: Acute Assessment and Plan: Infectious/inflammatory colitis as seen on CT scan of the chest abdomen and pelvis as under -continue Zosyn as above -bowel rest 04/08: CT scan chest abdomen and pelvis Impression: Suspected minimal diffuse large bowel wall thickening. Correlate for infectious/inflammatory colitis, or any possibility of early ischemic bowel. Atherosclerotic calcification of the aorta with complete occlusion of the aorta at its infrarenal aspect. Probable partial reconstitution at the level of the bilateral common femoral arteries. Consider vascular surgery consultation/follow-up as indicated. (3) Fever: Code(s): R50.9 - Fever, unspecified Status: Acute Assessment and Plan: Fevers of unknown origin -septic shock -continue antibiotics as above (4) Altered mental status: Qualifiers: Altered mental status type: unspecified Qualified Code(s): R41.82 - Altered mental status, unspecified Code(s): R41.82 - Altered mental status, unspecified Status: Inactive Assessment and Plan: Altered mental status resolved after IV fluids and started on Levophed with her blood pressure is improving. (5) Epilepsy: Code(s): G40.909 - Epilepsy, unspecified, not intractable, without status epilepticus Status: Acute Assessment and Plan: Patient has history of epilepsy likely related to a CVA, on Keppra and Depakote at home -restart Keppra and Depakote (6) Pulmonary embolism: Code(s): I26.99 - Other pulmonary embolism without acute cor pulmonale Status: Acute Assessment and Plan: History of pulmonary embolism, on Eliquis at home, will restart (7) Autonomic neuropathy: Code(s): G90.9 - Disorder of the autonomic nervous system, unspecified Status: Acute Assessment and Plan: Patient has autonomic neuropathy, on midodrine at home which could be related also to hypotension since she has not been taking that for the last couple of days prior to admission -midodrine restarted (8) COPD (chronic obstructive pulmonary disease): Code(s): J44.9 - Chronic obstructive pulmonary disease, unspecified Status: Acute Assessment and Plan: DuoNebs p.r.n. (9) Dementia with psychosis: Code(s): F03.92 - Unspecified dementia, unspecified severity, with psychotic disturbance Status: Acute Assessment and Plan: Restart olanzapine (10) Schizophrenia: Code(s): F20.9 - Schizophrenia, unspecified Status: Acute Assessment and Plan: Medications as above Plan DVT prophylaxis: Eliquis Stress ulcer prophylaxis: Not indicated Nutrition: Clear liquid diet Code Status: Full code (patient has a state guardian) Critical Care Time Spent: 49 minutes Due to a high probability of clinically significant, life threatening deterioration, the patient required my highest level of preparedness to intervene emergently and I personally spent this critical care time directly and personally managing the patient. This critical care time included obtaining a history; examining the patient; pulse oximetry; ordering and review of studies; arranging urgent treatment with development of a management plan; evaluation of patient's response to treatment; frequent reassessment; and discussions with other providers. It was exclusive of separately billable procedures and treating other patients and teaching time. Please see Assessment and Plan section and the rest of the note for further information on patient assessment and treatment This dictation may have been done utilizing a voice recognition system. Attempts have been made to correct errors. However, there may be uncorrected grammatical, spelling, and recognitions errors present. Physical Therapy Aide Consult Note Consult date: 04/09/24 Reason for consult: Septic shock, colitis, altered mental status, fevers, lethargy, generalized weakness HPI: Rhonda Hall is a 58 year old female with past medical history of CVA, epilepsy, COPD, autonomic neuropathy, pulmonary embolism, tobacco use disorder, hyperlipidemia, essential hypertension, peripheral arterial disease, dementia with psychosis, schizophrenia presented the ED from group home on 04/08/2024 with complaints of altered mental status, fevers, lethargy, generalized weakness ongoing for 1 day prior to admission. Patient has a state appointed guardian. In the ER patient was hypotensive with systolics in the 80s. Did not respond to IV fluids, central line inserted and patient was started on Levophed. Mentation improved after resuscitation and starting Levophed. UA and chest x-ray were within normal limits, CT chest abdomen and pelvis : Suspected minimal diffuse large bowel wall thickening. Correlate for infectious/inflammatory colitis, or any possibility of early ischemic bowel.Atherosclerotic calcification of the aorta with complete occlusion of the aorta at its infrarenal aspect. Probable partial reconstitution at the level of the bilateral common femoral arteries. Consider vascular surgery consultation/follow-up as indicated. Patient was started on Zosyn and vancomycin along with Levophed and transferred to the ICU for further management. WBC count, hemoglobin and platelet counts are within normal limits. Lactic was 0.8, electrolytes are within normal limits, creatinine of 0.5. LFTs are normal, troponin x2 were negative, lipase 130 and procalcitonin of 0.1. Patient seen and examined the ICU this morning, patient is awake, alert, able to answer questions appropriately no she is slow to respond. Patient she was able to tell me her date of , that this was in hospital in the year was 2024. Patient denies any chest pain, shortness on breath, abdominal pain, nausea, vomiting at this time. Remains on Levophed at 1 mcg/min. Review of Systems Review of Systems: All systems reviewed & are unremarkable except as noted in HPI and below PMFSH Past Medical History Medical History (Updated 04/09/24 @ 12:41 by Sanju Bonilla MD) CVA (cerebral vascular accident) CT evidence encephalomalacia left frontal lobe Insomnia Epilepsy COPD (chronic obstructive pulmonary disease) Autonomic neuropathy Pulmonary embolism Tobacco abuse disorder Hyperlipidemia Essential hypertension Peripheral artery disease Dementia with psychosis Schizophrenia Surgical History Surgical History (Updated 04/09/24 @ 01:52 by Elise Mathew DO) Status post open reduction with internal fixation of fracture Right hip History of coronary artery stent placement Status post bilateral above knee amputation Family History Family History (Updated 04/09/24 @ 03:54 by Sharon Mendez RN) Other Unknown family medical history Social History Social History (Updated 04/09/24 @ 02:31 by Elise Mathew DO) Social History: The patient resides at [facility]. She is a [employer] of [employer]. Her state guardian is Tigre Rodriguez. Patient is a former smoker. Code status: Full code Smoking status: Former smoker Alcohol intake: unknown Substance use: unknown Spiritual care concerns: No Meds Home Medications and Allergies Home Medications ?Medication ?Instructions ?Recorded ?Confirmed ?Type acetaminophen 325 mg tablet 650 mg PO Q4-5H PRN Pain 12/07/20 04/09/24 History (Tylenol) bisacodyl 5 mg tablet 5 mg PO DAILY PRN constipation 12/07/20 04/09/24 History divalproex 250 mg tablet,extended 250 mg PO TID 12/07/20 04/09/24 History release 24 hr gabapentin 300 mg tablet 300 mg PO TID 12/07/20 04/09/24 History lorazepam 1 mg tablet (Ativan) 1 mg PO BID 12/07/20 04/09/24 History mirtazapine 15 mg tablet (Remeron) 7.5 mg PO HS 12/07/20 04/09/24 History multivit with minerals-iron 18 1 tablet PO DAILY 12/07/20 04/09/24 History mg-folic ac 400 mcg-vit K 25 mcg tablet (Adults Multivitamin) olanzapine 5 mg tablet 5 mg PO BID 12/07/20 04/09/24 History polyethylene glycol 3350 17 gram 17 g PO DAILY 12/07/20 04/09/24 History oral powder packet (Miralax) sennosides 8.6 mg tablet (senna) 8.6 mg PO BID 12/07/20 04/09/24 History aluminum-mag hydroxide-simethicone 20 ml PO QID PRN upset stomach/gas 04/09/24 04/09/24 History 200 mg-200 mg-20 mg/5 mL oral susp (Maalox Advanced) apixaban 2.5 mg tablet 2.5 mg PO BID 04/09/24 04/09/24 History atorvastatin 20 mg tablet 20 mg PO HS 04/09/24 04/09/24 History diclofenac sodium 1 % topical gel 2 g topical TID 04/09/24 04/09/24 History (Voltaren Arthritis Pain) docusate sodium 100 mg capsule 100 mg PO BID 04/09/24 04/09/24 History levetiracetam 1,000 mg tablet 1,000 mg PO BID 04/09/24 04/09/24 History midodrine 5 mg tablet 5 mg PO TID 04/09/24 04/09/24 History triamcinolone acetonide 0.1 % 1 applic topical BID 04/09/24 04/09/24 History topical ointment Allergies Allergy/AdvReac Type Severity Reaction Status Date / Time cephalexin (From [facility]) Allergy Unknown Verified 04/09/24 03:56 Vital Signs Vital Signs - 24 hr 04/08/24 20:22 04/09/24 00:13 04/09/24 00:15 Temperature 97.1 F L Pulse Rate 73 72 75 Respiratory Rate 28 H 28 H 26 H Blood Pressure 87/61 L Pulse Oximetry 92 95 94 Oxygen Delivery Room Air Fraction of Inspired Oxygen 04/09/24 00:16 04/09/24 00:18 04/09/24 01:42 Temperature Pulse Rate 75 59 L Respiratory Rate 22 H Blood Pressure 93/48 L 74/52 L Pulse Oximetry 96 Oxygen Delivery Room Air Fraction of Inspired Oxygen 04/09/24 01:53 04/09/24 03:15 04/09/24 03:30 Temperature Pulse Rate 60 75 Respiratory Rate 18 10 L Blood Pressure 95/77 L 112/51 L Pulse Oximetry 97 99 Oxygen Delivery Room Air Fraction of Inspired Oxygen 04/09/24 04:00 04/09/24 04:00 04/09/24 04:00 Temperature 97.6 F Pulse Rate 50 L 50 L 60 Respiratory Rate 23 H Blood Pressure 102/62 102/62 Pulse Oximetry 95 Oxygen Delivery Fraction of Inspired Oxygen 04/09/24 05:03 04/09/24 05:15 04/09/24 06:00 Temperature Pulse Rate 53 L 53 L 52 L Respiratory Rate Blood Pressure 112/56 L 95/59 L Pulse Oximetry Oxygen Delivery Fraction of Inspired Oxygen 04/09/24 06:00 04/09/24 06:03 04/09/24 07:00 Temperature Pulse Rate 52 L 54 L 76 Respiratory Rate 21 H Blood Pressure 102/60 102/60 78/65 L Pulse Oximetry 98 Oxygen Delivery Fraction of Inspired Oxygen 04/09/24 07:46 04/09/24 07:46 04/09/24 07:46 Temperature Pulse Rate 56 L 56 L 56 L Respiratory Rate 21 H 27 H Blood Pressure 107/93 H Pulse Oximetry 98 95 Oxygen Delivery Room Air Fraction of Inspired Oxygen 04/09/24 08:00 04/09/24 09:00 04/09/24 09:16 Temperature Pulse Rate 53 L 117 H Respiratory Rate Blood Pressure 114/64 119/84 Pulse Oximetry 96 Oxygen Delivery Room Air Fraction of Inspired Oxygen 21 04/09/24 10:00 04/09/24 10:00 04/09/24 10:00 Temperature Pulse Rate 59 L 72 72 Respiratory Rate 28 H Blood Pressure 112/53 L 104/72 Pulse Oximetry 94 Oxygen Delivery Fraction of Inspired Oxygen 04/09/24 10:15 Temperature Pulse Rate 67 Respiratory Rate Blood Pressure 104/72 Pulse Oximetry Oxygen Delivery Fraction of Inspired Oxygen Exam Narrative: General: Pleasant female in no acute distress HEENT:? Pupils equal and reactive, sclerae sclera, moist oral mucosa Neck:? Supple Respiratory:? Clear to auscultation bilaterally, decreased at bases, no wheezing, adequate air entry Cardiac:? S1-S2 normal, regular rate and rhythm Abdomen:? Soft, nontender, nondistended, normoactive bowel sounds Extremities:? Palpable pedal pulses, no edema Neuro:? Patient is awake, alert, oriented to place, year and was able to tell me her date of . She does follow simple commands in all extremities, slow to respond Skin:? Normal skin turgor, no lesions noted, warm and dry Psych:? Flat affect Results Labs 04/09/24 08:32 04/09/24 08:32 Labs: Short CBC 04/08/24 04/09/24 Range/Units 22:23 08:32 WBC 8.5 8.6 (4.5-10.0) K/mm3 Hgb 11.7 L 11.6 L (12.0-15.0) g/dL Hct 35.1 L 34.7 L (37.0-47.0) % Plt Count 219 D 225 (150-375) k/mm3 BMP 04/08/24 04/09/24 22:23 08:32 Sodium 138 140 Potassium 3.5 3.2 L Chloride 109 H 110 H Carbon Dioxide 25 24 BUN 10 5 L D Creatinine 0.50 L 0.46 L Glucose 93 108 Calcium 8.3 L 7.7 L Cardiac Enzymes 04/08/24 04/09/24 04/09/24 Range/Units 22:23 02:34 08:32 Total Creatine Kinase 769 H (30-135) U/L Troponin I < 0.012 < 0.012 (0.000-0.034) ng/mL Liver Function 04/08/24 04/09/24 Range/Units 22:23 08:32 Total Bilirubin 0.4 0.6 (0.2-1.3) mg/dL AST 36 30 (14-36) U/L ALT 21 18 (6-35) U/L Alkaline Phosphatase 80 81 (38-126) U/L Albumin 3.0 L 2.9 L (3.5-5.1) g/dL Urine 04/08/24 Range/Units 22:36 Urine Color Dark yellow (Yellow) Urine Appearance Clear (Clear) Urine pH 6.5 (5.0-9.0) Ur Specific [place] 1.028 (1.001-1.035) Urine Protein Negative (Negative) mg/dL Urine Glucose (UA) Negative (Negative) mg/dL Quality VTE Prophylaxis VTE prophylaxis: pharmacologic ordered Hospitalist MIPS Advance Care Plan I have confirmed that the patient's Advanced Care Plan is present, code status is documented, or surrogate decision maker is listed in patient medical record.: Yes Medication Reconciliation I have utilized all available resources to obtain, update and review the patients current medications (includes all prescriptions, OTC, herbals, cannabis, and nutritional supplements).: Yes
[2024-04-09] MEDS: MIDODRINE HCL 10 MG TABLET PO ×2 (12:25→16:33)
[2024-04-09] MEDS: DIVALPROEX SODIUM ER 250 MG TAB.24H PO ×2 (12:25→20:47)
[2024-04-09] MEDS: SODIUM CHLORIDE 0.9% IV 1,000 ML 50 ML IV CONT (13:41)
[2024-04-09] MEDS: GABAPENTIN 300 MG CAPSULE PO ×2 (13:41→16:33)
[2024-04-09] MEDS: VANCOMYCIN 1,250 MG/NS 250 ML 1,250 MG/250 ML BAG 166.67 MG IVPB (16:33)
[2024-04-09] MEDS: levETIRAcetam 1000MG/NACL100ML 1,000 MG/100 ML BAG 400 MG IVPB (20:47)
[2024-04-09] MEDS: APIXABAN 2.5 MG TABLET PO (20:47)
[2024-04-09] MEDS: MIRTAZAPINE 7.5 MG TABLET PO (20:48)
[2024-04-09] MEDS: OLANZapine 5 MG TABLET PO (20:48)
[2024-04-10] VITALS (32 sets, daily range): BP systolic 75–114; BP diastolic 40–70; PULSE 44–78; RESP 19–28; TEMP 36.4–37.7; O2SAT 86–98
--- NOTE | 2024-04-10 | ECHO_ITS ---
Patient Info Name: Rhonda Hall Age: 58 years : 1965 Gender: Female Ht: 66 in Wt: 125 lbs BSA: 1.62 m2 HR: 60 bpm BP: 108 / 50 mmHg Heart Rhythm: Sinus Rhythm Technical Quality: Fair Exam Date: 04/10/2024 11:18 AM Exam Location: Echo Lab Exam Room: [facility] Patient Status: Inpatient Admit Date: 04/09/2024 Staff Ordering Physician: Sanju Bonilla MD Home Care Aide: Judy Weiss RDCS Attending Provider: Elise Mathew DO Referring Physician: Irene ALAS; Exam Type: CA echo doppler color flow Study Info Complete two-dimensional, color flow and Doppler transthoracic echocardiogram is performed. Summary 1. Left ventricular chamber dimension is normal. 2. Left ventricular systolic function is normal, estimated at 60-65%. 3. There is mildly increased left ventricular wall thickness. 4. The left ventricular diastolic function is grade I diastolic dysfunction. 5. Right ventricular systolic function is normal. 6. Left atrial chamber dimension is mildly enlarged. 7. There is mild mitral valve regurgitation. 8. There is mild tricuspid valve regurgitation. Left Ventricle Left ventricular chamber dimension is normal. Left ventricular systolic function is normal, estimated at 60-65%. There is mildly increased left ventricular wall thickness. The left ventricular diastolic function is grade I diastolic dysfunction. Right Ventricle Right ventricular chamber dimension is normal. Right ventricular systolic function is normal. Left Atria Left atrial chamber dimension is mildly enlarged. Right Atria Right atrial chamber dimension is normal. Atrial Septum Intact interatrial septum visualized by color flow imaging. Aortic Valve The aortic valve is not well visualized. There is no aortic valve stenosis. There is no aortic valve regurgitation. Pulmonic Valve The pulmonic valve is not well visualized. There is trace pulmonic regurgitation. Mitral Valve There is mild mitral valve regurgitation. Tricuspid Valve There is mild tricuspid valve regurgitation. Pericardium/Pleural There is no pericardial effusion. Inferior Vena Cava Normal inferior vena cava with >50% collapse upon inspiration consistent with normal right atrial pressure, 3 mmHg. Aorta The aortic root size at the sinus of Valsalva is normal. Left Ventricular Outflow Tract Name Value Normal LVOT 2D LVOT Diameter 2.0 cm LVOT Doppler LVOT Peak Gradient 5 mmHg LVOT Mean Gradient 2 mmHg LVOT VTI 22 cm LVOT VTI/AV VTI Ratio 0.7 LVOT Stroke Volume 67 ml LVOT CO 3.3 l/min LVOT CI 2.0 l/min/m2 Pulmonic Valve Name Value Normal PV Doppler PV Peak Gradient 2 mmHg PV Regurgitation Doppler FL Peak End Diastolic Velocity 144 cm/s Mitral Valve Name Value Normal MV Doppler MV Peak Gradient 4 mmHg MV Mean Gradient 1 mmHg MV Decel [place] 535 cm/s2 MV PHT 47 ms MV Area (PHT) 4.7 cm2 4.0-5.0 MV Area (Cont Eq VTI) 2.5 cm2 MV Regurgitation Doppler MR Peak Gradient 58 mmHg MV Diastolic Function MV E Peak Velocity 86 cm/s MV A Peak Velocity 78 cm/s MV E/A 1.1 MV Decel Time 161 ms MV Annular TDI MV E/e' (Septal) 9.4 <=8.0 MV E/e' (Lateral) 8.4 <=8.0 MV E/e' (Average) 8.9 Tricuspid Valve Name Value Normal TV Regurgitation Doppler TR Peak Velocity 291 cm/s TR Peak Gradient 34 mmHg Estimated PAP/RSVP RA Pressure 3 mmHg <=5 PA Systolic Pressure 37 mmHg <36 RV Systolic Pressure 37 mmHg <36 Aortic Valve Name Value Normal AV Doppler AV Peak Velocity 154 cm/s AV Peak Gradient 10 mmHg AV Mean Gradient 5 mmHg AV VTI 32 cm AV Area (Cont Eq VTI) 2.1 cm2 >=3.0 AV Area (Cont Eq Bradley) 2.1 cm2 AV Regurgitation 2D LVOT Area 3.1 cm2 Ventricles Name Value Normal LV Dimensions 2D/MM IVS Diastolic Thickness (2D) 0.7 cm 0.6-1.0 LVID Diastole (2D) 4.5 cm 3.8-5.2 LVIW Diastolic Thickness (2D) 0.7 cm 0.6-0.9 LVID Systole (2D) 3.0 cm 2.2-3.5 LVOT Diameter 2.0 cm LV Mass (2D Cubed) 98.34 g 67.00-162.00 LV Mass Index (2D Cubed) 61 g/m2 43-95 Relative Wall Thickness (2D) 0.33 LV Fractional Shortening/Ejection Fraction 2D/MM LV Fractional Shortening (2D) 33 % 27-45 LV EF (2D Teicholz) 61 % 54-74 LV Diastolic Volume (4C MOD) 70 ml LV EF (4C MOD) 68 % LV Diastolic Volume (2C MOD) 72 ml LV EF (2C MOD) 53 % LV Diastolic Volume (BP MOD) 73 ml 46-106 LV Diastolic Volume Index (BP MOD) 45 ml/m2 29-61 LV Systolic Volume (BP MOD) 28 ml 14-42 LV Systolic Volume Index (BP MOD) 17 ml/m2 8-24 LV EF (BP MOD) 62 % 54-74 LV Diastolic Length (4C) 7.1 cm LV Systolic Length (4C) 6.0 cm LV Stroke Volume (4C MOD) 48 ml LV CO (BP MOD) 2.5 l/min LV CI (BP MOD) 1.6 l/min/m2 Atria Name Value Normal LA Dimensions LA Volume (4C A-L) 34 ml LA Volume (BP A-L) 35 ml RA Dimensions RA Area (4C) 8.2 cm2 <=18.0 Report Signatures
[2024-04-10] MEDS: NOREPINEPHRINE 8 MG/D5W 250 ML 8 MG/250 ML BAG 9.38 MG IV CONT (01:29)
[2024-04-10] MEDS: PIPERACILLN/TAZ 3.375GM/NS50ML 3.375 GM/50 ML BAG IVPB ×4 (03:38→20:48)
[2024-04-10] MEDS: VANCOMYCIN 1,250 MG/NS 250 ML 1,250 MG/250 ML BAG 166.67 MG IVPB (03:38)
[2024-04-10] MEDS: DIVALPROEX SODIUM ER 250 MG TAB.24H PO ×3 (05:48→20:48)
[2024-04-10] MEDS: CENTRAL LINE FLUSH 10 ML IV PUSH ×3 (05:48→20:49)
[2024-04-10 06:18] LABS: Basophils Percent Auto 0.3 % (0.2-1.2); Eosinophils Absolute Auto 0.1 K/mm3 (0-0.3); Eosinophils Percent Auto 1.3 % (0-4.4); Hematocrit 35.5 % (37.0-47.0); Hemoglobin 11.8 g/dL (12.0-15.0); Immature Granulocyte Absolute 0.05 K/mm3 (0.00-0.031); Immature Granulocyte Percent A 0.7 % (0-0.5); Lymphocytes Percent Auto 22.8 % (18.3-44.2); Mean Corpuscular HGB Conc 33.2 g/dl (32-36); Mean Corpuscular Hemoglobin 30.1 pg (26-34); Mean Corpuscular Volume 90.6 fl (80-100); Monocytes Absolute Auto 0.6 K/mm3 (0.1-0.6); Monocytes Percent Auto 8.4 % (2.6-8.5); Neutrophils Absolute Auto 4.7 K/mm3 (1.3-6.7); Neutrophils Percent Auto 66.5 % (45.5-73.1); Platelet Count Result 254 k/mm3 (150-375); Red Blood Count 3.92 M/mm3 (4.2-5.4); Red Cell Distribution Width 14.6 % (11.5-14.5)
[2024-04-10 06:28] LABS: Lactic Acid Reflex 0.9 mmol/L (0.7-2.0)
[2024-04-10 06:30] LABS: Alanine Aminotransferase 17 U/L (6-35); Alkaline Phosphatase 75 U/L (38-126); Anion Gap 7 mmol/L (4-12); Aspartate Amino Transferase 26 U/L (14-36); Bilirubin,Total 0.6 mg/dL (0.2-1.3); Blood Urea Nitrogen 3 mg/dL (7-17); Carbon Dioxide 23 mmol/L (22-30); Chloride 114 mmol/L (98-107); Estimated CRCL calculation 91 ml/min; Estimated Glomerular Filt Rate > 60; Glucose 128 mg/dL (65-110); Magnesium 2.1 mg/dL (1.6-2.3); Potassium 3.4 mmol/L (3.4-5.0); Sodium 144 mmol/L (137-145)
[2024-04-10 06:39] LABS: INR 1.2; Partial Thromboplastin Time 34.5 Seconds (22.3-36.8); Prothrombin Time 15.4 Seconds (11.1-14.7)
[2024-04-10] MEDS: APIXABAN 2.5 MG TABLET PO ×2 (08:43→20:48)
[2024-04-10] MEDS: GABAPENTIN 300 MG CAPSULE PO ×3 (08:43→16:59)
[2024-04-10] MEDS: levETIRAcetam 1000MG/NACL100ML 1,000 MG/100 ML BAG 400 MG IVPB ×2 (08:45→20:47)
[2024-04-10] MEDS: MIDODRINE HCL 10 MG TABLET PO ×3 (08:45→20:47)
[2024-04-10] MEDS: OLANZapine 5 MG TABLET PO ×2 (08:46→20:47)
[2024-04-10] MEDS: KCL 40 MEQ/WATER 100 ML 100 ML 25 ML IVPB (09:08)
--- NOTE | 2024-04-10 12:21 | PCFNICU ---
ICU Rounding Note: Pt current nutrition is Full liquids. Nutrition recommendation: advance as tolerated per MD orders. Last recorded weight is 56.8 kg, up from 55.4 kg on admit. Bowel Motility: No BM reported. Labs Reviewed: Glu 128, BUN 3, Cr 0.49, Hct 35.5, Hgb 11.8 Meds Noted:Levophed, Keppra, Remeron Skin: WNL Additional Notes: Patient tolerated clear liquids, reported 30-50% of liquids. Plans to advance to full liquids for lunch today. Agree with diet orders. Following daily in ICU rounds.
--- NOTE | 2024-04-10 12:50 | P.PNINT_ITS ---
Progress Note: A&P Assessment and Plan (1) Shock: Code(s): R57.9 - Shock, unspecified Status: Acute Assessment and Plan: Patient presented with altered mental status, hypotension, refractory to IV fluid bolus per sepsis protocol, central line was inserted, patient started on Levophed -weaned to Levophed to maintain MAP > 65 mmHg -likely etiology colitis, chest x-ray, UA will within normal limits -adequately fluid-resuscitated -lactic acids have been normal -procalcitonin was 0.1 -WBC count was within normal limits -continue Zosyn (04/08) -04/10: Discontinue vancomycin since MRSA nares is negative -04/08: Blood cultures were obtained and pending -if more volume expansion is required will start albumin (2) Colitis: Code(s): K52.9 - Noninfective gastroenteritis and colitis, unspecified Status: Acute Assessment and Plan: Infectious/inflammatory colitis as seen on CT scan of the chest abdomen and pelvis as under -continue Zosyn as above -bowel rest 04/08: CT scan chest abdomen and pelvis Impression: Suspected minimal diffuse large bowel wall thickening. Correlate for infectious/inflammatory colitis, or any possibility of early ischemic bowel. Atherosclerotic calcification of the aorta with complete occlusion of the aorta at its infrarenal aspect. Probable partial reconstitution at the level of the bilateral common femoral arteries. Consider vascular surgery consultation/follow-up as indicated. (3) Fever: Code(s): R50.9 - Fever, unspecified Status: Acute Assessment and Plan: Fevers of unknown origin -septic shock -continue antibiotics as above -currently afebrile since in the ICU (4) Altered mental status: Qualifiers: Altered mental status type: unspecified Qualified Code(s): R41.82 - Altered mental status, unspecified Code(s): R41.82 - Altered mental status, unspecified Status: Inactive Assessment and Plan: Altered mental status resolved after IV fluids and started on Levophed with her blood pressure is improving. (5) Epilepsy: Code(s): G40.909 - Epilepsy, unspecified, not intractable, without status epilepticus Status: Acute Assessment and Plan: Patient has history of epilepsy likely related to a CVA, on Keppra and Depakote at home -continue Keppra and Depakote (6) Pulmonary embolism: Code(s): I26.99 - Other pulmonary embolism without acute cor pulmonale Status: Acute Assessment and Plan: History of pulmonary embolism, continue home Eliquis (7) Autonomic neuropathy: Code(s): G90.9 - Disorder of the autonomic nervous system, unspecified Status: Acute Assessment and Plan: Patient has autonomic neuropathy, on midodrine at home which could be related also to hypotension since she has not been taking that for the last couple of days prior to admission -continue midodrine which she takes at home -have asked the bedside RN to call the residential to see what are patient has normal blood pressures continue (8) COPD (chronic obstructive pulmonary disease): Code(s): J44.9 - Chronic obstructive pulmonary disease, unspecified Status: Acute Assessment and Plan: DuSwathi p.r.n. (9) Dementia with psychosis: Code(s): F03.92 - Unspecified dementia, unspecified severity, with psychotic disturbance Status: Acute Assessment and Plan: Continue olanzapine (10) Schizophrenia: Code(s): F20.9 - Schizophrenia, unspecified Status: Acute Assessment and Plan: Medications as above Plan DVT prophylaxis: Eliquis Stress ulcer prophylaxis: Not indicated Nutrition: Increase to full liquid diet Code Status: Full code (patient has a state guardian) Critical Care Time Spent: 33 minutes Due to a high probability of clinically significant, life threatening deterioration, the patient required my highest level of preparedness to in tercritical access hospitale emergently and I personally spent this critical care time directly and personally managing the patient. This critical care time included obtaining a history; examining the patient; pulse oximetry; ordering and review of studies; arranging urgent treatment with development of a management plan; evaluation of patient's response to treatment; frequent reassessment; and discussions with other providers. It was exclusive of separately billable procedures and treating other patients and teaching time. Please see Assessment and Plan section and the rest of the note for further information on patient assessment and treatment This dictation may have been done utilizing a voice recognition system. Attempts have been made to correct errors. However, there may be uncorrected grammatical, spelling, and recognitions errors present. Subjective Date/time seen: 04/10/24 12:50 Interval history: Reason for consult: septic shock, altered mental status, fevers, lethargy, generalized weakness 04/10/2024: Patient seen examined the ICU, currently in no acute distress, d enies any chest pain, shortness O breath, abdominal pain, back pain, nausea, vomiting, diarrhea. Urine output has been very good. Remains hypotensive requiring Levophed. Patient is afebrile, bradycardic, on room air with adequate O2 sats Review of Systems Review of Systems: All systems reviewed & are unremarkable except as noted in HPI and below Exam Narrative: General: Pleasant female in no acute distress HEENT:? Pupils equal and reactive, sclerae sclera, moist oral mucosa Neck:? Supple Respiratory:? Clear to auscultation bilaterally, decreased at bases, no wheezing, adequate air entry Cardiac:? S1-S2 normal, regular rate and rhythm Abdomen:? Soft, nontender, nondistended, normoactive bowel sounds Extremities:? Palpable pedal pulses, no edema Neuro:? Patient is awake, alert, oriented to place, able to tell me the date of . She does follow simple commands in all extremities, slow to respond Skin:? Normal skin turgor, no lesions noted, warm and dry Psych:? Flat affect Objective Data Vital Signs Vital Signs: Vital Signs - 24 hr 04/09/24 14:00 04/09/24 14:00 04/09/24 16:00 Temperature Pulse Rate 72 74 76 Respiratory Rate 26 H 25 H Blood Pressure 102/55 L Pulse Oximetry 96 94 Oxygen Delivery Room Air Oxygen Flow Rate Fraction of Inspired Oxygen 04/09/24 16:00 04/09/24 16:00 04/09/24 18:00 Temperature 97.6 F Pulse Rate 76 80 61 Respiratory Rate 24 H Blood Pressure 102/48 L Pulse Oximetry 94 Oxygen Delivery Oxygen Flow Rate Fraction of Inspired Oxygen 04/09/24 18:00 04/09/24 20:00 04/09/24 20:00 Temperature 98 F Pulse Rate 61 134 H Respiratory Rate 30 H 27 H Blood Pressure 186/102 H 80/65 L Pulse Oximetry 97 96 96 Oxygen Delivery Room Air Oxygen Flow Rate Fraction of Inspired Oxygen 04/09/24 20:00 04/09/24 21:00 04/09/24 22:00 Temperature 99.6 F Pulse Rate 62 70 Respiratory Rate 30 H Blood Pressure 104/61 83/58 L Pulse Oximetry 96 Oxygen Delivery Oxygen Flow Rate Fraction of Inspired Oxygen 04/09/24 22:00 04/10/24 00:00 04/10/24 00:00 Temperature 98.3 F Pulse Rate 68 59 L Respiratory Rate 27 H Blood Pressure 80/53 L Pulse Oximetry 95 93 Oxygen Delivery Room Air Oxygen Flow Rate Fraction of Inspired Oxygen 04/10/24 00:00 04/10/24 01:29 04/10/24 02:00 Temperature 98.2 F Pulse Rate 60 60 53 L Respiratory Rate 27 H Blood Pressure 78/59 L 97/47 L Pulse Oximetry 92 Oxygen Delivery Oxygen Flow Rate Fraction of Inspired Oxygen 04/10/24 02:00 04/10/24 02:00 04/10/24 02:15 Temperature Pulse Rate 57 L 53 L 52 L Respiratory Rate Blood Pressure 97/57 L 80/52 L Pulse Oximetry Oxygen Delivery Oxygen Flow Rate Fraction of Inspired Oxygen 04/10/24 02:30 04/10/24 03:00 04/10/24 03:50 Temperature Pulse Rate 54 L 56 L Respiratory Rate Blood Pressure 91/47 L 91/42 L Pulse Oximetry 93 Oxygen Delivery Room Air Oxygen Flow Rate Fraction of Inspired Oxygen 04/10/24 04:00 04/10/24 04:00 04/10/24 04:00 Temperature 99.9 F H Pulse Rate 55 L 55 L 54 L Respiratory Rate 22 H Blood Pressure 97/61 L 97/61 L Pulse Oximetry 93 Oxygen Delivery Oxygen Flow Rate Fraction of Inspired Oxygen 04/10/24 05:00 04/10/24 05:41 04/10/24 06:00 Temperature Pulse Rate 56 L 55 L 59 L Respiratory Rate Blood Pressure 109/53 L 109/66 Pulse Oximetry Oxygen Delivery Oxygen Flow Rate Fraction of Inspired Oxygen 04/10/24 06:00 04/10/24 06:00 04/10/24 06:31 Temperature Pulse Rate 59 L 59 L 71 Respiratory Rate 21 H Blood Pressure 98/45 L 98/45 L 114/57 L Pulse Oximetry 90 Oxygen Delivery Oxygen Flow Rate Fraction of Inspired Oxygen 04/10/24 06:32 04/10/24 08:00 04/10/24 08:00 Temperature Pulse Rate 72 72 Respiratory Rate 19 Blood Pressure Pulse Oximetry 86 L 97 Oxygen Delivery Nasal Cannula Nasal Cannula Oxygen Flow Rate 2 2 Fraction of Inspired Oxygen 21 04/10/24 08:00 04/10/24 08:00 04/10/24 08:45 Temperature 97.8 F Pulse Rate 72 72 78 Respiratory Rate 19 Blood Pressure 102/59 L 102/59 L 108/67 Pulse Oximetry 97 Oxygen Delivery Oxygen Flow Rate Fraction of Inspired Oxygen 04/10/24 10:00 04/10/24 10:00 04/10/24 10:00 Temperature Pulse Rate 70 70 70 Respiratory Rate 24 H Blood Pressure 104/66 104/66 Pulse Oximetry 96 Oxygen Delivery Oxygen Flow Rate Fraction of Inspired Oxygen 04/10/24 10:28 04/10/24 11:30 04/10/24 12:00 Temperature Pulse Rate 53 L Respiratory Rate 25 H Blood Pressure Pulse Oximetry 98 96 97 Oxygen Delivery Nasal Cannula Room Air Oxygen Flow Rate 2 Fraction of Inspired Oxygen 21 04/10/24 12:00 04/10/24 12:00 Temperature 97.6 F Pulse Rate 53 L 53 L Respiratory Rate 25 H Blood Pressure 90/49 L Pulse Oximetry 97 Oxygen Delivery Oxygen Flow Rate Fraction of Inspired Oxygen Intake/Output Intake/Output: Intake & Output 04/07/24 04/08/24 04/09/24 04/10/24 23:59 23:59 23:59 23:59 Intake Total 4231.7 785.2 Output Total 2450 1450 Balance 1781.7 -664.8 Meds/Results Medications: Active Medications Generic Name Dose Route Start Last Admin Trade Name Freq PRN Reason Stop Dose Admin Albuterol/Ipratropium 3 ml 04/09/24 12:47 Ipratropium 0.5 Mg/Albuterol Sulfate 2.5 Mg Ampul.Neb 3 Ml INHALATION Q6HRT PRN respiratory ditress, wheezing Apixaban 2.5 mg 04/09/24 21:00 04/10/24 08:43 Apixaban 2.5 Mg Tablet PO 2.5 mg Q12HR CAROL Administration Divalproex Sodium 250 mg 04/09/24 13:00 04/10/24 05:48 Divalproex Sodium Er 250 Mg Tab.24h PO 250 mg Q8HR CAROL Administration Gabapentin 300 mg 04/09/24 13:00 04/10/24 08:43 Gabapentin 300 Mg Capsule PO 300 mg TID CAROL Administration Piperacillin/Tazobactam/Dextrose 3.375 gm in 50 mls @ 100 mls/hr 04/09/24 09:00 04/10/24 09:15 Zosyn 3.375 Gm/Ns 50 Ml IVPB Infused Q6H CAROL Infusion Levetiracetam 1,000 mg in 100 mls @ 400 mls/hr 04/09/24 21:00 04/10/24 09:00 Keppra Iv IVPB Infused Q12HR CAROL Infusion Norepinephrine Bitartrate 8 mg in 250 mls @ 7.5 mls/hr 04/10/24 01:30 04/10/24 10:00 Levophed 8 Mg/D5w 250 Ml IV CONT 4 mcg/min .Q24H CAROL 7.5 mls/hr Titration Protocol 4 MCG/MIN Potassium Chloride 100 mls @ 25 mls/hr 04/10/24 08:50 04/10/24 09:08 Kcl 40 Meq/Water 100 Ml IVPB 04/10/24 12:49 25 mls/hr ONCE ONE Administration Midodrine 10 mg 04/10/24 14:00 Midodrine Hcl 10 Mg Tablet PO Q8H CAROL Mirtazapine 7.5 mg 04/09/24 21:00 04/09/24 20:48 Mirtazapine 7.5 Mg Tablet PO 7.5 mg HS CAROL Administration Olanzapine 5 mg 04/09/24 21:00 04/10/24 08:46 Olanzapine 5 Mg Tablet PO 5 mg Q12HR CAROL Administration Perflutren Lipid Microsphere 0 ml 04/10/24 08:38 Perflutren Lipid Microspheres 1.5 Ml Vial Diluted To 10 Ml Total Volume IV PUSH 04/13/24 08:38 ONCE PRN adequate visualization Protocol Sodium Chloride 10 ml 04/09/24 06:00 04/10/24 05:48 Central Line Flush IV PUSH 10 ml Q8HR CAROL Administration Sodium Chloride 20 ml 04/09/24 03:40 Central Line Flush IV PUSH PRN PRN after blood draws Radiology Results: ITS Impressions Chest/Abdomen/Pelvis CT 04/09/24 05:16 Impression: Suspected minimal diffuse large bowel wall thickening. Correlate for infectious/inflammatory colitis, or any possibility of early ischemic bowel. Atherosclerotic calcification of the aorta with complete occlusion of the aorta at its infrarenal aspect. Probable partial reconstitution at the level of the bilateral common femoral arteries. Consider vascular surgery consultation/follow-up as indicated. Head CT 04/09/24 05:20 Impression: No intracranial hemorrhage, mass, or acute infarct. Moderate generalized cerebral atrophy, with more pronounced, severe cerebellar atrophy. Chronic left frontal lobe infarct with background chronic microvascular ischemic changes in the white matter. Chest X-Ray 04/10/24 06:14 Impression: Clear lungs. Right IJ line in place. Labs Labs: Laboratory Results - last 24 hr 04/10/24 05:55 WBC 7.0 RBC 3.92 L Hgb 11.8 L Hct 35.5 L MCV 90.6 MCH 30.1 MCHC 33.2 RDW 14.6 H Plt Count 254 MPV 10.0 Immature Gran % (Auto) 0.7 H Neut % (Auto) 66.5 Lymph % (Auto) 22.8 Clarke % (Auto) 8.4 Eos % (Auto) 1.3 Baso % (Auto) 0.3 Lymph # (Auto) 1.60 Clarke # (Auto) 0.6 Eos # (Auto) 0.1 Baso # (Auto) 0.0 Abs Immat Gran (auto) 0.05 H Absolute Neuts (auto) 4.7 Absolute Nucleated RBC 0.000 Nucleated RBC % 0.0 PT 15.4 H INR 1.2 APTT 34.5 Sodium 144 Potassium 3.4 Chloride 114 H Carbon Dioxide 23 Anion Gap 7 BUN 3 L Creatinine 0.49 L Estim Creat Clear Calc 91 Estimated GFR > 60 Glucose 128 H Lactic Acid 0.9 Calcium 8.0 L Phosphorus 3.0 Magnesium 2.1 Total Bilirubin 0.6 AST 26 ALT 17 Alkaline Phosphatase 75 Total Protein 6.0 L Albumin 3.0 L Quality VTE Prophylaxis VTE prophylaxis: pharmacologic ordered
[2024-04-10] MEDS: NOREPINEPHRINE 8 MG/D5W 250 ML 8 MG/250 ML BAG 7.5 MG IV CONT (16:59)
[2024-04-10] MEDS: ACETAMINOPHEN 325 MG TABLET 650 MG PO (20:48)
[2024-04-10] MEDS: MIRTAZAPINE 7.5 MG TABLET PO (20:48)
[2024-04-11] VITALS (26 sets, daily range): BP systolic 89–138; BP diastolic 46–88; PULSE 47–71; RESP 18–24; TEMP 36.4–38.1; O2SAT 90–97
[2024-04-11] MEDS: PIPERACILLN/TAZ 3.375GM/NS50ML 3.375 GM/50 ML BAG IVPB ×4 (05:18→21:46)
[2024-04-11] MEDS: CENTRAL LINE FLUSH 10 ML IV PUSH ×3 (05:19→21:47)
[2024-04-11] MEDS: DIVALPROEX SODIUM ER 250 MG TAB.24H PO ×3 (05:19→21:45)
[2024-04-11] MEDS: MIDODRINE HCL 10 MG TABLET PO ×3 (05:19→21:45)
[2024-04-11 05:46] LABS: Basophils Percent Auto 0.3 % (0.2-1.2); Eosinophils Absolute Auto 0.2 K/mm3 (0-0.3); Eosinophils Percent Auto 2.7 % (0-4.4); Hematocrit 37.4 % (37.0-47.0); Hemoglobin 12.3 g/dL (12.0-15.0); Immature Granulocyte Absolute 0.03 K/mm3 (0.00-0.031); Immature Granulocyte Percent A 0.4 % (0-0.5); Lymphocytes Absolute Auto 1.85 K/mm3 (0.9-3.2); Lymphocytes Percent Auto 23.8 % (18.3-44.2); Mean Corpuscular HGB Conc 32.9 g/dl (32-36); Mean Corpuscular Hemoglobin 30.4 pg (26-34); Mean Corpuscular Volume 92.3 fl (80-100); Monocytes Absolute Auto 0.8 K/mm3 (0.1-0.6); Monocytes Percent Auto 10.4 % (2.6-8.5); Neutrophils Absolute Auto 4.9 K/mm3 (1.3-6.7); Neutrophils Percent Auto 62.4 % (45.5-73.1); Platelet Count Result 301 k/mm3 (150-375); Red Blood Count 4.05 M/mm3 (4.2-5.4); Red Cell Distribution Width 14.6 % (11.5-14.5); White Blood Count 7.8 K/mm3 (4.5-10.0)
[2024-04-11 05:57] LABS: INR 1.2; Prothrombin Time 15.5 Seconds (11.1-14.7)
[2024-04-11 05:58] LABS: Partial Thromboplastin Time 41.1 Seconds (22.3-36.8)
[2024-04-11 05:59] LABS: Alanine Aminotransferase 16 U/L (6-35); Alkaline Phosphatase 81 U/L (38-126); Anion Gap 5 mmol/L (4-12); Aspartate Amino Transferase 23 U/L (14-36); Bilirubin,Total 0.4 mg/dL (0.2-1.3); Blood Urea Nitrogen 3 mg/dL (7-17); Calcium 8.5 mg/dL (8.4-10.2); Carbon Dioxide 25 mmol/L (22-30); Chloride 113 mmol/L (98-107); Estimated CRCL calculation 79 ml/min; Estimated Glomerular Filt Rate > 60; Glucose 121 mg/dL (65-110); Potassium 3.4 mmol/L (3.4-5.0); Sodium 143 mmol/L (137-145)
[2024-04-11] MEDS: APIXABAN 2.5 MG TABLET PO ×2 (08:52→21:45)
[2024-04-11] MEDS: levETIRAcetam 1000MG/NACL100ML 1,000 MG/100 ML BAG 400 MG IVPB ×2 (08:52→21:46)
[2024-04-11] MEDS: OLANZapine 5 MG TABLET PO ×2 (08:52→21:46)
[2024-04-11] MEDS: POTASSIUM BICARBONATE 25 MEQ TABEF 50 MEQ PO (08:58)
--- NOTE | 2024-04-11 10:25 | P.PNINT_ITS ---
Progress Note: A&P Assessment and Plan (1) Shock: Code(s): R57.9 - Shock, unspecified Status: Acute Assessment and Plan: Patient presented with altered mental status, hypotension, refractory to IV fluid bolus per sepsis protocol, central line was inserted, patient started on Levophed -wean levophed to maintain MAP > 65 mmHg -likely etiology hypovolemia colitis, chest x-ray, UA will within normal limits -lactic acids have been normal -procalcitonin was 0.1 -WBC count was within normal limits -continue Zosyn (04/08) -04/10: Discontinue vancomycin since MRSA nares is negative -04/08: Blood cultures were obtained and negative till now -25% albumin (2) Colitis: Code(s): K52.9 - Noninfective gastroenteritis and colitis, unspecified Status: Acute Assessment and Plan: Infectious/inflammatory versus hypoperfusion colitis as seen on CT scan of the chest abdomen and pelvis as under -continue Zosyn as above -bowel rest -hemodynamic support 04/08: CT scan chest abdomen and pelvis Impression: Suspected minimal diffuse large bowel wall thickening. Correlate for infectious/inflammatory colitis, or any possibility of early ischemic bowel. Atherosclerotic calcification of the aorta with complete occlusion of the aorta at its infrarenal aspect. Probable partial reconstitution at the level of the bilateral common femoral arteries. Consider vascular surgery consultation/follow-up as indicated. (3) Fever: Code(s): R50.9 - Fever, unspecified Status: Acute Assessment and Plan: Fevers secondary to colitis -continue antibiotics as above -currently afebrile since in the ICU (4) Altered mental status: Qualifiers: Altered mental status type: unspecified Qualified Code(s): R41.82 - Altered mental status, unspecified Code(s): R41.82 - Altered mental status, unspecified Status: Inactive Assessment and Plan: Altered mental status resolved after IV fluids and started on Levophed with her blood pressure is improving. (5) Epilepsy: Code(s): G40.909 - Epilepsy, unspecified, not intractable, without status epilepticus Status: Acute Assessment and Plan: Patient has history of epilepsy likely related to a CVA, on Keppra and Depakote at home -continue Keppra and Depakote (6) Pulmonary embolism: Code(s): I26.99 - Other pulmonary embolism without acute cor pulmonale Status: Acute Assessment and Plan: History of pulmonary embolism, continue home Eliquis (7) Autonomic neuropathy: Code(s): G90.9 - Disorder of the autonomic nervous system, unspecified Status: Acute Assessment and Plan: Patient has autonomic neuropathy, on midodrine at home which could be related also to hypotension since she has not been taking that for the last couple of days prior to admission -continue midodrine which she takes at home (8) COPD (chronic obstructive pulmonary disease): Code(s): J44.9 - Chronic obstructive pulmonary disease, unspecified Status: Acute Assessment and Plan: DuoNebs p.r.n. (9) Dementia with psychosis: Code(s): F03.92 - Unspecified dementia, unspecified severity, with psychotic disturbance Status: Acute Assessment and Plan: Continue olanzapine (10) Schizophrenia: Code(s): F20.9 - Schizophrenia, unspecified Status: Acute Assessment and Plan: Medications as above Plan DVT prophylaxis: Eliquis Stress ulcer prophylaxis: Not indicated Nutrition: Currently on full liquid diet Code Status: Full code (patient has a state guardian) Critical Care Time Spent: 32 minutes Due to a high probability of clinically significant, life threatening deterioration, the patient required my highest level of preparedness to intervene emergently and I personally spent this critical care time directly and personally managing the patient. This critical care time included obtaining a history; examining the patient; pulse oximetry; ordering and review of studies; arranging urgent treatment with development of a management plan; evaluation of patient's response to treatment; frequent reassessment; and discussions with other providers. It was exclusive of separately billable procedures and treating other patients and teaching time. Please see Assessment and Plan section and the rest of the note for further information on patient assessment and treatment This dictation may have been done utilizing a voice recognition system. Attempts have been made to correct errors. However, there may be uncorrected grammatical, spelling, and recognitions errors present. Subjective Date/time seen: 04/11/24 Overnight events reviewed. Afebrile On room air Continues to be on Levophed Awake alert but not oriented. Pleasantly confused. Denies any pain or shortness of breath but overall poor historian Vitals acceptable Interval history: Reason for consult: septic shock, altered mental status, fevers, lethargy, generalized weakness Review of Systems Review of Systems: All systems reviewed & are unremarkable except as noted in HPI and below Exam Narrative: General: Pleasant female in no acute distress HEENT:? Pupils equal and reactive, sclerae sclera, moist oral mucosa Neck:? Supple Respiratory:? Clear to auscultation bilaterally, decreased at bases, no wheezing, adequate air entry Cardiac:? S1-S2 normal, regular rate and rhythm Abdomen:? 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 Patient is awake, alert, orientedx1 . She does follow simple commands in all extremities, slow to respond Skin:? Normal skin turgor, no lesions noted, warm and dry Psych:? Flat affect Objective Data Vital Signs Vital Signs: Vital Signs - 24 hr 04/10/24 10:28 04/10/24 11:30 04/10/24 12:00 Temperature Pulse Rate 53 L Respiratory Rate 25 H Blood Pressure Pulse Oximetry 98 96 97 Oxygen Delivery Nasal Cannula Room Air Oxygen Flow Rate 2 Fraction of Inspired Oxygen 21 04/10/24 12:00 04/10/24 12:00 04/10/24 12:00 Temperature 36.4 C Pulse Rate 53 L 53 L 50 L Respiratory Rate 25 H Blood Pressure 90/49 L 94/56 L Pulse Oximetry 97 Oxygen Delivery Oxygen Flow Rate Fraction of Inspired Oxygen 04/10/24 14:00 04/10/24 14:00 04/10/24 14:00 Temperature Pulse Rate 52 L 52 L 54 L Respiratory Rate 24 H Blood Pressure 97/44 L 94/70 L Pulse Oximetry 95 Oxygen Delivery Oxygen Flow Rate Fraction of Inspired Oxygen 04/10/24 16:00 04/10/24 16:00 04/10/24 16:00 Temperature Pulse Rate 59 L 54 L 54 L Respiratory Rate 20 Blood Pressure 99/52 L Pulse Oximetry 94 Oxygen Delivery Room Air Oxygen Flow Rate Fraction of Inspired Oxygen 21 04/10/24 16:00 04/10/24 16:59 04/10/24 16:59 Temperature 36.9 C Pulse Rate 54 L 59 L 59 L Respiratory Rate 20 Blood Pressure 99/52 L 99/49 L 99/49 L Pulse Oximetry 94 Oxygen Delivery Oxygen Flow Rate Fraction of Inspired Oxygen 04/10/24 18:00 04/10/24 18:00 04/10/24 18:00 Temperature Pulse Rate 64 64 68 Respiratory Rate 25 H Blood Pressure 114/60 114/60 Pulse Oximetry 96 Oxygen Delivery Oxygen Flow Rate Fraction of Inspired Oxygen 04/10/24 20:00 04/10/24 20:00 04/10/24 20:00 Temperature Pulse Rate 56 L 56 L Respiratory Rate 25 H Blood Pressure 97/52 L Pulse Oximetry 94 Oxygen Delivery Room Air Oxygen Flow Rate Fraction of Inspired Oxygen 04/10/24 20:50 04/10/24 21:00 04/10/24 21:40 Temperature 36.8 C Pulse Rate 62 60 44 L Respiratory Rate 28 H Blood Pressure 108/59 L 81/48 L 81/57 L Pulse Oximetry 94 Oxygen Delivery Oxygen Flow Rate Fraction of Inspired Oxygen 04/10/24 22:00 04/10/24 22:00 04/10/24 22:00 Temperature Pulse Rate 46 L 46 L 44 L Respiratory Rate 22 H Blood Pressure 100/42 L 100/42 L Pulse Oximetry 94 Oxygen Delivery Oxygen Flow Rate Fraction of Inspired Oxygen 04/10/24 23:30 04/10/24 23:45 04/10/24 23:53 Temperature 36.9 C Pulse Rate 46 L 47 L 47 L Respiratory Rate 21 H Blood Pressure 86/40 L 75/45 L 75/45 L Pulse Oximetry 95 Oxygen Delivery Oxygen Flow Rate Fraction of Inspired Oxygen 04/10/24 23:54 04/11/24 00:00 04/11/24 00:00 Temperature Pulse Rate 47 L 47 L Respiratory Rate 21 H Blood Pressure 98/56 L Pulse Oximetry 95 Oxygen Delivery Room Air Oxygen Flow Rate Fraction of Inspired Oxygen 04/11/24 00:15 04/11/24 01:45 04/11/24 02:00 Temperature Pulse Rate 48 L 48 L 49 L Respiratory Rate Blood Pressure 90/49 L 124/63 119/62 Pulse Oximetry Oxygen Delivery Oxygen Flow Rate Fraction of Inspired Oxygen 04/11/24 02:00 04/11/24 02:00 04/11/24 04:00 Temperature Pulse Rate 49 L 49 L Respiratory Rate 19 18 Blood Pressure 119/62 Pulse Oximetry 95 95 Oxygen Delivery Room Air Oxygen Flow Rate Fraction of Inspired Oxygen 04/11/24 04:00 04/11/24 04:00 04/11/24 04:00 Temperature 37.6 C H Pulse Rate 53 L 53 L 53 L Respiratory Rate 18 Blood Pressure 106/58 L 106/58 L Pulse Oximetry 95 Oxygen Delivery Oxygen Flow Rate Fraction of Inspired Oxygen 04/11/24 05:15 04/11/24 05:45 04/11/24 06:00 Temperature Pulse Rate 49 L 47 L 47 L Respiratory Rate Blood Pressure 99/56 L 89/46 L Pulse Oximetry Oxygen Delivery Oxygen Flow Rate Fraction of Inspired Oxygen 04/11/24 06:00 04/11/24 06:00 04/11/24 08:00 Temperature Pulse Rate 47 L 47 L 50 L Respiratory Rate 23 H Blood Pressure 92/51 L 92/51 L 99/62 L Pulse Oximetry 95 Oxygen Delivery Oxygen Flow Rate Fraction of Inspired Oxygen 04/11/24 08:00 04/11/24 08:00 04/11/24 08:00 Temperature 36.6 C Pulse Rate 63 63 63 Respiratory Rate 24 H 24 H Blood Pressure 105/69 Pulse Oximetry 97 97 Oxygen Delivery Room Air Oxygen Flow Rate Fraction of Inspired Oxygen 21 04/11/24 08:45 04/11/24 09:00 Temperature Pulse Rate 61 61 Respiratory Rate Blood Pressure 138/65 127/66 Pulse Oximetry Oxygen Delivery Oxygen Flow Rate Fraction of Inspired Oxygen Intake/Output Intake/Output: Intake & Output 04/08/24 04/09/24 04/10/24 04/11/24 23:59 23:59 23:59 23:59 Intake Total 4231.7 1280.2 929.5 Output Total 2450 2650 900 Balance 1781.7 -1369.8 29.5 Meds/Results Medications: Active Medications Generic Name Dose Route Start Last Admin Trade Name Freq PRN Reason Stop Dose Admin Acetaminophen 650 mg 04/10/24 20:08 04/10/24 20:48 Acetaminophen 325 Mg Tablet PO 650 mg Q4H PRN Administration pain 1-3 or fever Albuterol/Ipratropium 3 ml 04/09/24 12:47 Ipratropium 0.5 Mg/Albuterol Sulfate 2.5 Mg Ampul.Neb 3 Ml INHALATION Q6HRT PRN respiratory ditress, wheezing Apixaban 2.5 mg 04/09/24 21:00 04/11/24 08:52 Apixaban 2.5 Mg Tablet PO 2.5 mg Q12HR CAROL Administration Divalproex Sodium 250 mg 04/09/24 13:00 04/11/24 05:19 Divalproex Sodium Er 250 Mg Tab.24h PO 250 mg Q8HR CAROL Administration Gabapentin 300 mg 04/09/24 13:00 04/10/24 16:59 Gabapentin 300 Mg Capsule PO 300 mg TID CAROL Administration Hydrocortisone Sodium Succinate 100 mg 04/11/24 14:00 Hydrocortisone Sodium Succinate 100 Mg/2 Ml Vial IV PUSH Q8HR CAROL Piperacillin/Tazobactam/Dextrose 3.375 gm in 50 mls @ 100 mls/hr 04/09/24 09:00 04/11/24 08:58 Zosyn 3.375 Gm/Ns 50 Ml IVPB 100 mls/hr Q6H CAROL Administration Levetiracetam 1,000 mg in 100 mls @ 400 mls/hr 04/09/24 21:00 04/11/24 08:52 Keppra Iv IVPB 400 mls/hr Q12HR CAROL Administration Norepinephrine Bitartrate 8 mg in 250 mls @ 11.25 mls/hr 04/10/24 01:30 04/11/24 09:00 Levophed 8 Mg/D5w 250 Ml IV CONT 6 mcg/min .[id number] CAROL 11.25 mls/hr Titration Protocol 6 MCG/MIN Albumin Human 100 mls @ 60 mls/hr 04/11/24 12:00 Albutein IVPB 04/13/24 11:59 Q6HR CAROL Midodrine 10 mg 04/10/24 14:00 04/11/24 05:19 Midodrine Hcl 10 Mg Tablet PO 10 mg Q8H CAROL Administration Mirtazapine 7.5 mg 04/09/24 21:00 04/10/24 20:48 Mirtazapine 7.5 Mg Tablet PO 7.5 mg HS CAROL Administration Olanzapine 5 mg 04/09/24 21:00 04/11/24 08:52 Olanzapine 5 Mg Tablet PO 5 mg Q12HR CAROL Administration Perflutren Lipid Microsphere 0 ml 04/10/24 08:38 Perflutren Lipid Microspheres 1.5 Ml Vial Diluted To 10 Ml Total Volume IV PUSH 04/13/24 08:38 ONCE PRN adequate visualization Protocol Sodium Chloride 10 ml 04/09/24 06:00 04/11/24 05:19 Central Line Flush IV PUSH 10 ml Q8HR CAROL Administration Sodium Chloride 20 ml 04/09/24 03:40 Central Line Flush IV PUSH PRN PRN after blood draws Radiology Results: ITS Impressions Chest/Abdomen/Pelvis CT 04/09/24 05:16 Impression: Suspected minimal diffuse large bowel wall thickening. Correlate for infectious/inflammatory colitis, or any possibility of early ischemic bowel. Atherosclerotic calcification of the aorta with complete occlusion of the aorta at its infrarenal aspect. Probable partial reconstitution at the level of the bilateral common femoral arteries. Consider vascular surgery con sultation/follow-up as indicated. Head CT 04/09/24 05:20 Impression: No intracranial hemorrhage, mass, or acute infarct. Moderate generalized cerebral atrophy, with more pronounced, severe cerebellar atrophy. Chronic left frontal lobe infarct with background chronic microvascular ischemic changes in the white matter. Chest X-Ray 04/10/24 06:14 Impression: Clear lungs. Right IJ line in place. Labs Labs: Laboratory Results - last 24 hr 04/11/24 05:23 WBC 7.8 RBC 4.05 L Hgb 12.3 Hct 37.4 MCV 92.3 MCH 30.4 MCHC 32.9 RDW 14.6 H Plt Count 301 MPV 10.0 Immature Gran % (Auto) 0.4 Neut % (Auto) 62.4 Lymph % (Auto) 23.8 [place] % (Auto) 10.4 H Eos % (Auto) 2.7 Baso % (Auto) 0.3 Lymph # (Auto) 1.85 [place] # (Auto) 0.8 H Eos # (Auto) 0.2 Baso # (Auto) 0.0 Abs Immat Gran (auto) 0.03 Absolute Neuts (auto) 4.9 Absolute Nucleated RBC 0.000 Nucleated RBC % 0.0 PT 15.5 H INR 1.2 APTT 41.1 H Sodium 143 Potassium 3.4 Chloride 113 H Carbon Dioxide 25 Anion Gap 5 BUN 3 L Creatinine 0.58 L Estim Creat Clear Calc 79 Estimated GFR > 60 Glucose 121 H Lactic Acid 1.0 Calcium 8.5 Phosphorus 4.0 Magnesium 2.0 Total Bilirubin 0.4 AST 23 ALT 16 Alkaline Phosphatase 81 Total Protein 6.0 L Albumin 3.0 L Quality VTE Prophylaxis VTE prophylaxis: pharmacologic ordered Hospitalist MIPS Advance Care Plan I have confirmed that the patient's Advanced Care Plan is present, code status is documented, or surrogate decision maker is listed in patient medical record.: Yes Medication Reconciliation I have utilized all available resources to obtain, update and review the patients current medications (includes all prescriptions, OTC, herbals, cannabis, and nutritional supplements).: Yes
[2024-04-11] MEDS: ALBUMIN HUMAN 25% 25 GM/100 ML 100 ML IVPB ×3 (12:00→23:54)
--- NOTE | 2024-04-11 14:24 | PCFNICU ---
ICU Rounding Note: Pt current nutrition is Full liquid. Last recorded weight is 57.5 kg, up from 55.4 kg on admit Bowel Motility: No BM reported. Labs Reviewed:Glu 121, BUN 3, Cr 0.58, Alb 3.0 Meds Noted:Remeron, Lovenox, Keppra Skin: wound consult-will monitor for any pressure ulcers. Additional Notes: Patient currently on full liquids, 45-50% oral intake. Diet supplements have been added of Ensure Compact BID for additional 220 kcal and 9 gm protein. Recommend advancing diet as tolerated per MD orders and when patient is medical able. Agree with diet orders at this time. Following daily in ICU rounds.
[2024-04-11] MEDS: HYDROCORTISONE SODIUM SUCCINATE 100 MG/2 ML VIAL IV PUSH ×2 (14:26→21:45)
[2024-04-11] MEDS: NOREPINEPHRINE 8 MG/D5W 250 ML 8 MG/250 ML BAG 5.63 MG IV CONT (16:34)
[2024-04-11] MEDS: MIRTAZAPINE 7.5 MG TABLET PO (21:45)
[2024-04-11] MEDS: ACETAMINOPHEN 325 MG TABLET 650 MG PO (21:45)
[2024-04-11] MEDS: NOREPINEPHRINE 8 MG/D5W 250 ML 8 MG/250 ML BAG 9.38 MG IV CONT (23:53)
[2024-04-12] VITALS (12 sets, daily range): BP systolic 87–131; BP diastolic 55–75; PULSE 48–84; RESP 15–26; TEMP 36.6–36.9; O2SAT 91–98
[2024-04-12] MEDS: DIVALPROEX SODIUM ER 250 MG TAB.24H PO ×3 (04:51→20:24)
[2024-04-12] MEDS: HYDROCORTISONE SODIUM SUCCINATE 100 MG/2 ML VIAL IV PUSH ×2 (04:52→08:32)
[2024-04-12] MEDS: PIPERACILLN/TAZ 3.375GM/NS50ML 3.375 GM/50 ML BAG IVPB ×4 (04:52→20:21)
[2024-04-12] MEDS: ALBUMIN HUMAN 25% 25 GM/100 ML 100 ML IVPB ×3 (04:52→17:39)
[2024-04-12] MEDS: MIDODRINE HCL 10 MG TABLET PO ×3 (04:52→20:24)
[2024-04-12] MEDS: CENTRAL LINE FLUSH 10 ML IV PUSH ×3 (04:53→20:22)
[2024-04-12 06:10] LABS: Hematocrit 32.8 % (37.0-47.0); Hemoglobin 10.5 g/dL (12.0-15.0); Mean Corpuscular Hemoglobin 29.9 pg (26-34); Mean Corpuscular Volume 93.4 fl (80-100); Mean Platelet Volume 10.2 fl (7.4-10.4); Platelet Count Result 278 k/mm3 (150-375); Red Blood Count 3.51 M/mm3 (4.2-5.4); Red Cell Distribution Width 14.6 % (11.5-14.5)
[2024-04-12 06:20] LABS: Potassium 3.3 mmol/L (3.4-5.0)
[2024-04-12 06:24] LABS: Alanine Aminotransferase 14 U/L (6-35); Albumin Level 4.2 g/dL (3.5-5.1); Alkaline Phosphatase 56 U/L (38-126); Anion Gap 11 mmol/L (4-12); Aspartate Amino Transferase 19 U/L (14-36); Bilirubin,Total 0.5 mg/dL (0.2-1.3); Blood Urea Nitrogen 4 mg/dL (7-17); Carbon Dioxide 24 mmol/L (22-30); Chloride 109 mmol/L (98-107); Estimated CRCL calculation 89 ml/min; Estimated Glomerular Filt Rate > 60; Glucose 168 mg/dL (65-110); Sodium 144 mmol/L (137-145)
[2024-04-12] MEDS: levETIRAcetam 1000MG/NACL100ML 1,000 MG/100 ML BAG 400 MG IVPB ×2 (08:32→20:20)
[2024-04-12] MEDS: APIXABAN 2.5 MG TABLET PO ×2 (08:32→20:22)
[2024-04-12] MEDS: POTASSIUM BICARBONATE 25 MEQ TABEF 50 MEQ PO ×2 (08:32→13:57)
[2024-04-12] MEDS: GABAPENTIN 300 MG CAPSULE PO ×3 (08:32→17:39)
[2024-04-12] MEDS: OLANZapine 5 MG TABLET PO ×2 (08:33→20:22)
--- NOTE | 2024-04-12 11:16 | P.PNINT_ITS ---
Progress Note: A&P Assessment and Plan (1) Shock: Code(s): R57.9 - Shock, unspecified Status: Acute Assessment and Plan: Patient presented with altered mental status, hypotension, refractory to IV fluid bolus per sepsis protocol, central line was inserted, patient started on Levophed -wean levophed to maintain MAP > 65 mmHg. Currently on -likely etiology hypovolemia colitis, chest x-ray, UA will within normal limits -lactic acids have been normal -procalcitonin was 0.1 -WBC count was within normal limits -continue Zosyn (04/08) -04/10: Discontinue vancomycin since MRSA nares is negative -04/08: Blood cultures were obtained and negative till now -she also to see 25% albumin (2) Colitis: Code(s): K52.9 - Noninfective gastroenteritis and colitis, unspecified Status: Acute Assessment and Plan: Infectious/inflammatory versus hypoperfusion colitis as seen on CT scan of the chest abdomen and pelvis as under -continue Zosyn as above Currently denies any abdominal pain and no tenderness on exam -hemodynamic support 04/08: CT scan chest abdomen and pelvis Impression: Suspected minimal diffuse large bowel wall thickening. Correlate for infectious/inflammatory colitis, or any possibility of early ischemic bowel. Atherosclerotic calcification of the aorta with complete occlusion of the aorta at its infrarenal aspect. Probable partial reconstitution at the level of the bilateral common femoral arteries. Consider vascular surgery c onsultation/follow-up as indicated. (3) Fever: Code(s): R50.9 - Fever, unspecified Status: Acute Assessment and Plan: Fevers secondary to colitis -continue antibiotics as above -currently afebrile since in the ICU (4) Altered mental status: Qualifiers: Altered mental status type: unspecified Qualified Code(s): R41.82 - Altered mental status, unspecified Code(s): R41.82 - Altered mental status, unspecified Status: Inactive Assessment and Plan: Altered mental status resolved after IV fluids and started on Levophed with her blood pressure is improving. (5) Epilepsy: Code(s): G40.909 - Epilepsy, unspecified, not intractable, without status epilepticus Status: Acute Assessment and Plan: Patient has history of epilepsy likely related to a CVA, on Keppra and Depakote at home -continue Keppra and Depakote (6) Pulmonary embolism: Code(s): I26.99 - Other pulmonary embolism without acute cor pulmonale Status: Acute Assessment and Plan: History of pulmonary embolism, continue home Eliquis (7) Autonomic neuropathy: Code(s): G90.9 - Disorder of the autonomic nervous system, unspecified Status: Acute Assessment and Plan: Patient has autonomic neuropathy, on midodrine at home which could be related also to hypotension since she has not been taking that for the last couple of days prior to admission -continue midodrine which she takes at home (8) COPD (chronic obstructive pulmonary disease): Code(s): J44.9 - Chronic obstructive pulmonary disease, unspecified Status: Acute Assessment and Plan: DuoNebs p.r.n. (9) Dementia with psychosis: Code(s): F03.92 - Unspecified dementia, unspecified severity, with psychotic disturbance Status: Acute Assessment and Plan: Continue olanzapine (10) Schizophrenia: Code(s): F20.9 - Schizophrenia, unspecified Status: Acute Assessment and Plan: Medications as above Plan DVT prophylaxis: Eliquis Stress ulcer prophylaxis: Not indicated Nutrition: Advanced to regular Code Status: Full code (patient has a state guardian) Incentive spirometry Consult PT OT Transfer out ICU today Subjective Date/time seen: 04/12/24 Overnight events reviewed. Afebrile. On room air Levophed weaned off Continues to be sedated with Improved urine output Tolerating p.o. diet Complains of pain in both her amputated legs. Which is chronic. No abdominal pain Denies any other new complaint. All other systems were reviewed and were negative Other Vitals acceptable Interval history: Reason for consult: septic shock, altered mental status, fevers, lethargy, gen eralized weakness Review of Systems Review of Systems: All systems reviewed & are unremarkable except as noted in HPI and below Exam Narrative: General: Pleasant female in no acute distress HEENT:? Pupils equal and reactive, sclerae sclera, moist oral mucosa Neck:? Supple Respiratory:? Clear to auscultation bilaterally, decreased at bases, no wheezing, adequate air entry Cardiac:? S1-S2 normal, regular rate and rhythm Abdomen:? 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 Patient is awake, alert, orientedx1 . She does follow simple commands in all extremities, slow to respond Skin:? Normal skin turgor, no lesions noted, warm and dry Psych:? Flat affect Objective Data Vital Signs Vital Signs: Vital Signs - 24 hr 04/11/24 12:00 04/11/24 12:00 04/11/24 12:00 Temperature Pulse Rate 57 L 63 63 Respiratory Rate 24 H Blood Pressure 112/65 Pulse Oximetry 96 Oxygen Delivery Room Air Oxygen Flow Rate Fraction of Inspired Oxygen 21 04/11/24 12:00 04/11/24 14:00 04/11/24 14:00 Temperature 36.6 C Pulse Rate 63 51 L 65 Respiratory Rate 24 H Blood Pressure 105/69 93/68 L Pulse Oximetry 97 Oxygen Delivery Oxygen Flow Rate Fraction of Inspired Oxygen 04/11/24 14:00 04/11/24 15:00 04/11/24 16:00 Temperature 36.6 C Pulse Rate 50 L 50 L 50 L Respiratory Rate 18 Blood Pressure 115/71 118/55 L 111/68 Pulse Oximetry 92 Oxygen Delivery Oxygen Flow Rate Fraction of Inspired Oxygen 04/11/24 16:00 04/11/24 16:00 04/11/24 16:00 Temperature 36.4 C Pulse Rate 50 L 50 L 50 L Respiratory Rate 18 18 Blood Pressure 120/63 Pulse Oximetry 92 92 Oxygen Delivery Room Air Oxygen Flow Rate Fraction of Inspired Oxygen 21 04/11/24 16:34 04/11/24 16:45 04/11/24 17:00 Temperature Pulse Rate 50 L 50 L 50 L Respiratory Rate Blood Pressure 111/68 120/63 103/88 Pulse Oximetry Oxygen Delivery Oxygen Flow Rate Fraction of Inspired Oxygen 04/11/24 18:00 04/11/24 18:00 04/11/24 18:00 Temperature 38.1 C H Pulse Rate 60 60 55 L Respiratory Rate 18 Blood Pressure 125/80 Pulse Oximetry 95 Oxygen Delivery Oxygen Flow Rate Fraction of Inspired Oxygen 04/11/24 18:15 04/11/24 20:00 04/11/24 20:00 Temperature Pulse Rate 55 L 54 L 54 L Respiratory Rate Blood Pressure 96/59 L 96/60 L Pulse Oximetry Oxygen Delivery Oxygen Flow Rate Fraction of Inspired Oxygen 04/11/24 20:00 04/11/24 20:00 04/11/24 21:45 Temperature 36.7 C Pulse Rate 54 L 51 L Respiratory Rate 22 H Blood Pressure 96/70 L 104/57 L Pulse Oximetry 90 90 Oxygen Delivery Nasal Cannula Oxygen Flow Rate 2 Fraction of Inspired Oxygen 04/11/24 22:00 04/11/24 22:00 04/11/24 22:00 Temperature Pulse Rate 71 71 71 Respiratory Rate 20 Blood Pressure 96/55 L 96/55 L Pulse Oximetry 96 Oxygen Delivery Oxygen Flow Rate Fraction of Inspired Oxygen 04/11/24 23:53 04/11/24 23:53 04/12/24 00:00 Temperature Pulse Rate 52 L 52 L 48 L Respiratory Rate Blood Pressure 89/49 L 89/59 L 131/62 Pulse Oximetry Oxygen Delivery Oxygen Flow Rate Fraction of Inspired Oxygen 04/12/24 00:00 04/12/24 00:00 04/12/24 00:00 Temperature 36.9 C Pulse Rate 48 L 48 L Respiratory Rate 26 H Blood Pressure 131/62 Pulse Oximetry 98 98 Oxygen Delivery Nasal Cannula Oxygen Flow Rate 2 Fraction of Inspired Oxygen 04/12/24 02:00 04/12/24 02:00 04/12/24 02:00 Temperature Pulse Rate 49 L 49 L 49 L Respiratory Rate 22 H Blood Pressure 118/67 118/67 Pulse Oximetry 98 Oxygen Delivery Oxygen Flow Rate Fraction of Inspired Oxygen 04/12/24 04:00 04/12/24 04:00 04/12/24 04:00 Temperature 36.6 C Pulse Rate 52 L 52 L Respiratory Rate 19 Blood Pressure 122/75 118/56 L Pulse Oximetry 93 96 Oxygen Delivery Room Air Oxygen Flow Rate Fraction of Inspired Oxygen 04/12/24 04:00 04/12/24 05:00 04/12/24 06:00 Temperature Pulse Rate 61 59 L 55 L Respiratory Rate Blood Pressure 107/61 Pulse Oximetry Oxygen Delivery Oxygen Flow Rate Fraction of Inspired Oxygen 04/12/24 06:00 04/12/24 06:00 04/12/24 08:00 Temperature Pulse Rate 55 L 55 L 84 Respiratory Rate 22 H 22 H Blood Pressure 107/55 L 107/55 L Pulse Oximetry 96 94 Oxygen Delivery Room Air Oxygen Flow Rate Fraction of Inspired Oxygen 21 04/12/24 08:00 04/12/24 08:00 04/12/24 10:00 Temperature 36.9 C Pulse Rate 84 84 77 Respiratory Rate 22 H Blood Pressure 98/55 L Pulse Oximetry 94 Oxygen Delivery Oxygen Flow Rate Fraction of Inspired Oxygen 04/12/24 10:00 04/12/24 10:51 Temperature Pulse Rate 77 Respiratory Rate 22 H Blood Pressure 113/57 L Pulse Oximetry 92 91 Oxygen Delivery Room Air Oxygen Flow Rate Fraction of Inspired Oxygen Intake/Output Intake/Output: Intake & Output 04/09/24 04/10/24 04/11/24 04/12/24 23:59 23:59 23:59 23:59 Intake Total 4231.7 1280.2 2065.2 1613.1 Output Total 2450 2650 2050 1000 Balance 1781.7 -1369.8 15.2 613.1 Meds/Results Medications: Active Medications Generic Name Dose Route Start Last Admin Trade Name Freq PRN Reason Stop Dose Admin Acetaminophen 650 mg 04/10/24 20:08 04/11/24 21:45 Acetaminophen 325 Mg Tablet PO 650 mg Q4H PRN Administration pain 1-3 or fever Albuterol/Ipratropium 3 ml 04/09/24 12:47 Ipratropium 0.5 Mg/Albuterol Sulfate 2.5 Mg Ampul.Neb 3 Ml INHALATION Q6HRT PRN respiratory ditress, wheezing Apixaban 2.5 mg 04/09/24 21:00 04/12/24 08:32 Apixaban 2.5 Mg Tablet PO 2.5 mg Q12HR CAROL Administration Divalproex Sodium 250 mg 04/09/24 13:00 04/12/24 04:51 Divalproex Sodium Er 250 Mg Tab.24h PO 250 mg Q8HR CAROL Administration Gabapentin 300 mg 04/09/24 13:00 04/12/24 08:32 Gabapentin 300 Mg Capsule PO 300 mg TID CAROL Administration Hydrocortisone Sodium Succinate 100 mg 04/12/24 09:00 04/12/24 08:32 Hydrocortisone Sodium Succinate 100 Mg/2 Ml Vial IV PUSH 04/12/24 23:59 100 mg QAM CAROL Administration Piperacillin/Tazobactam/Dextrose 3.375 gm in 50 mls @ 100 mls/hr 04/09/24 09:00 04/12/24 09:00 Zosyn 3.375 Gm/Ns 50 Ml IVPB Infused Q6H CAROL Infusion Levetiracetam 1,000 mg in 100 mls @ 400 mls/hr 04/09/24 21:00 04/12/24 09:30 Keppra Iv IVPB Infused Q12HR CAROL Infusion Albumin Human 100 mls @ 60 mls/hr 04/11/24 12:00 04/12/24 06:35 Albutein IVPB 04/13/24 11:59 Infused Q6HR CAROL Infusion Midodrine 10 mg 04/10/24 14:00 04/12/24 04:52 Midodrine Hcl 10 Mg Tablet PO 10 mg Q8H CAROL Administration Mirtazapine 7.5 mg 04/09/24 21:00 04/11/24 21:45 Mirtazapine 7.5 Mg Tablet PO 7.5 mg HS CAROL Administration Olanzapine 5 mg 04/09/24 21:00 04/12/24 08:33 Olanzapine 5 Mg Tablet PO 5 mg Q12HR CAROL Administration Perflutren Lipid Microsphere 0 ml 04/10/24 08:38 Perflutren Lipid Microspheres 1.5 Ml Vial Diluted To 10 Ml Total Volume IV PUSH 04/13/24 08:38 ONCE PRN adequate visualization Protocol Potassium Bicarbonate 50 meq 04/12/24 07:20 04/12/24 08:32 Potassium Bicarbonate 25 Meq Tabef PO 04/12/24 13:21 50 meq Q6H CAROL Administration Sodium Chloride 10 ml 04/09/24 06:00 04/12/24 04:53 Central Line Flush IV PUSH 10 ml Q8HR CAROL Administration Sodium Chloride 20 ml 04/09/24 03:40 Central Line Flush IV PUSH PRN PRN after blood draws Radiology Results: ITS Impressions Chest/Abdomen/Pelvis CT 04/09/24 05:16 Impression: Suspected minimal diffuse large bowel wall thickening. Correlate for infectious/inflammatory colitis, or any possibility of early ischemic bowel. Atherosclerotic calcification of the aorta with complete occlusion of the aorta at its infrarenal aspect. Probable partial reconstitution at the level of the bilateral common femoral arteries. Consider vascular surgery consultation/follow-up as indicated. Head CT 04/09/24 05:20 Impression: No intracranial hemorrhage, mass, or acute infarct. Moderate generalized cerebral atrophy, with more pronounced, severe cerebellar atrophy. Chronic left frontal lobe infarct with background chronic microvascular ischemic changes in the white matter. Chest X-Ray 04/10/24 06:14 Impression: Clear lungs. Right IJ line in place. Labs Labs: Laboratory Results - last 24 hr 04/12/24 05:03 WBC 6.0 RBC 3.51 L Hgb 10.5 L Hct 32.8 L MCV 93.4 MCH 29.9 MCHC 32.0 RDW 14.6 H Plt Count 278 MPV 10.2 Sodium 144 Potassium 3.3 L Chloride 109 H Carbon Dioxide 24 Anion Gap 11 BUN 4 L Creatinine 0.49 L Estim Creat Clear Calc 89 Estimated GFR > 60 Glucose 168 H Calcium 9.0 Total Bilirubin 0.5 AST 19 ALT 14 Alkaline Phosphatase 56 Total Protein 7.0 Albumin 4.2 Quality VTE Prophylaxis VTE prophylaxis: pharmacologic ordered
--- NOTE | 2024-04-12 12:05 | PCFNICU ---
ICU Rounding Note: Pt current nutrition is Regular with Ensure Compact BID Last recorded weight is 55.5 kg, stable. Bowel Motility: +BM report 04/12 Labs Reviewed:Glu 168, BUN 4, Cr 0.49, Hct 32.8, Hgb 10.5 Meds Noted:Remeron, Keppra, Lovenox, Eliquis. Skin: Deep Tissue-right buttock, left thigh Additional Notes: Patient currently on a regular diet, eating about 30% of meals. Diet supplements are being sent BID for additional 240 kcal and 10 gm protein, patient is drinking supplements. Agree with diet orders. Following daily in ICU rounds.
--- NOTE | 2024-04-12 13:29 | PCOTNOTE ---
The patient initial evaluation was not able to be completed on 04/12 due to patient refusal. Will plan to continue to follow patient and evaluate when able.
--- NOTE | 2024-04-12 13:30 | PCPTNOTE ---
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
[2024-04-12] MEDS: ACETAMINOPHEN 325 MG TABLET 650 MG PO (20:22)
[2024-04-12] MEDS: MIRTAZAPINE 7.5 MG TABLET PO (20:22)
[2024-04-13] VITALS (10 sets, daily range): BP systolic 90–116; BP diastolic 46–72; PULSE 45–80; RESP 20–29; TEMP 36.4–37.2; O2SAT 90–98
[2024-04-13] MEDS: ALBUMIN HUMAN 25% 25 GM/100 ML 100 ML IVPB ×2 (01:11→06:26)
[2024-04-13] MEDS: PIPERACILLN/TAZ 3.375GM/NS50ML 3.375 GM/50 ML BAG IVPB (04:00)
[2024-04-13] MEDS: CENTRAL LINE FLUSH 10 ML IV PUSH ×3 (06:26→21:20)
[2024-04-13] MEDS: DIVALPROEX SODIUM ER 250 MG TAB.24H PO ×3 (06:26→21:00)
--- NOTE | 2024-04-13 09:31 | P.PNIM_ITS ---
Progress Note: A&P Assessment and Plan (1) Shock: Code(s): R57.9 - Shock, unspecified Status: Acute Assessment and Plan: Patient presented with altered mental status, hypotension, refractory to IV fluid bolus per sepsis protocol, central line was inserted, patient started on Levophed Shock has improved and patient has been weaned off Levophed and IV fluid -likely etiology hypovolemia, colitis - Chest x-ray, UA were within normal limits -lactic acids and procalcitonin were normal -WBC count was within normal limits -currently on Zosyn (04/08) which will be switched to Augmentin p.o. -04/10: Discontinue vancomycin since MRSA nares is negative -04/08: Blood cultures were obtained and negative till now -she also to receive 25% albumin (2) Colitis: Code(s): K52.9 - Noninfective gastroenteritis and colitis, unspecified Status: Acute Assessment and Plan: Infectious/inflammatory versus hypoperfusion colitis as seen on CT scan of the chest abdomen and pelvis as under Change Zosyn to p.o. augment Currently denies any abdominal pain and no tenderness on exam -hemodynamic support 04/08: CT scan chest abdomen and pelvis Impression: Suspected minimal diffuse large bowel wall thickening. Correlate for infectious/inflammatory colitis, or any possibility of early ischemic bowel. Atherosclerotic calcification of the aorta with complete occlusion of the aorta at its infrarenal aspect. Probable partial reconstitution at the level of the bilateral common femoral arteries. Consider vascular surgery consultation/follow-up as indicated. (3) Altered mental status: Qualifiers: Altered mental status type: unspecified Qualified Code(s): R41.82 - Altered mental status, unspecified Code(s): R41.82 - Altered mental status, unspecified Status: Inactive Assessment and Plan: Altered mental status resolved after IV fluids and started on Levophed with her blood pressure is improving. (4) Epilepsy: Code(s): G40.909 - Epilepsy, unspecified, not intractable, without status epilepticus Status: Acute Assessment and Plan: Patient has history of epilepsy likely related to a CVA, on Keppra and Depakote at home -continue Keppra and Depakote (5) Pulmonary embolism: Code(s): I26.99 - Other pulmonary embolism without acute cor pulmonale Status: Acute Assessment and Plan: History of pulmonary embolism, continue home Eliquis (6) Autonomic neuropathy: Code(s): G90.9 - Disorder of the autonomic nervous system, unspecified Status: Acute Assessment and Plan: Patient has autonomic neuropathy, on midodrine at home which could be related also to hypotension since she has not been taking that for the last couple of days prior to admission -continue midodrine which she takes at home -midodrine could explain her sinus bradycardia (7) COPD (chronic obstructive pulmonary disease): Code(s): J44.9 - Chronic obstructive pulmonary disease, unspecified Status: Acute Assessment and Plan: DuoNebs p.r.n. (8) Dementia with psychosis: Code(s): F03.92 - Unspecified dementia, unspecified severity, with psychotic disturbance Status: Acute Assessment and Plan: Continue olanzapine (9) Schizophrenia: Code(s): F20.9 - Schizophrenia, unspecified Status: Acute Assessment and Plan: Medications as above Plan DVT prophylaxis: Eliquis Stress ulcer prophylaxis: Not indicated Nutrition: Regular diet ordered Code Status: Full code (patient has a state guardian) Incentive spirometry Continue PT OT Up in chair Subjective Date/time seen: 04/13/24 She is complaining of pain all over her body. She also had some nausea after eating breakfast. She denies any other complaints. She is on 2 L oxygen. Patient denies fever, chest pain, shortness of breath, cough, nausea vomiting, abdominal pain,, diarrhea, headache or constipation. Other systems were revie wed and were negative. On telemetry she has sinus bradycardia. His blood pressure has been adequate and she has not required any interventions. She is afebrile and urine output is good. She is tolerating p.o. diet. She remains pleasantly confused and not fully oriented Review of Systems Review of Systems: All systems reviewed & are unremarkable except as noted in HPI and below Exam Narrative: General: Pleasant female in no acute distress HEENT:? Pupils equal and reactive, sclerae sclera, moist oral mucosa Neck:? Supple Respiratory:? Clear to auscultation bilaterally, decreased at bases, no wheezing, adequate air entry Cardiac:? S1-S2 normal, regular rate and rhythm Abdomen:? 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 Patient is awake, alert, orientedx1 . She does follow simple commands in all extremities, slow to respond Skin:? Normal skin turgor, no lesions noted, warm and dry Psych:? Flat affect Objective Data Vital Signs Vital Signs: Vital Signs - 24 hr 04/12/24 10:00 04/12/24 10:00 04/12/24 10:51 Temperature Pulse Rate 77 77 Respiratory Rate 22 H Blood Pressure 113/57 L Pulse Oximetry 92 91 Oxygen Delivery Room Air Fraction of Inspired Oxygen 04/12/24 12:00 04/12/24 12:00 04/12/24 12:00 Temperature 36.8 C Pulse Rate 64 64 64 Respiratory Rate 16 16 Blood Pressure 99/61 L Pulse Oximetry 93 93 Oxygen Delivery Room Air Fraction of Inspired Oxygen 21 04/12/24 14:00 04/12/24 14:00 04/12/24 16:00 Temperature 36.8 C 36.9 C Pulse Rate 64 64 50 L Respiratory Rate 22 H 15 Blood Pressure 98/57 L 87/64 L Pulse Oximetry 95 91 Oxygen Delivery Fraction of Inspired Oxygen 04/12/24 20:00 04/12/24 20:00 04/12/24 20:00 Temperature 36.8 C Pulse Rate 62 62 Respiratory Rate 22 H 22 H Blood Pressure 111/71 Pulse Oximetry 98 98 Oxygen Delivery Room Air Fraction of Inspired Oxygen 04/13/24 00:00 04/13/24 00:00 04/13/24 04:00 Temperature 37.2 C Pulse Rate 45 L 45 L 50 L Respiratory Rate 20 Blood Pressure Pulse Oximetry 90 Oxygen Delivery Fraction of Inspired Oxygen 04/13/24 04:00 04/13/24 08:00 Temperature 36.7 C 36.8 C Pulse Rate 56 L 66 Respiratory Rate 29 H 28 H Blood Pressure 102/72 116/52 L Pulse Oximetry 90 95 Oxygen Delivery Fraction of Inspired Oxygen Intake/Output Intake/Output: Intake & Output 04/10/24 04/11/24 04/12/24 04/13/24 23:59 23:59 23:59 23:59 Intake Total 1280.2 2065.2 2853.1 1150 Output Total 2650 2050 1950 400 Balance -1369.8 15.2 903.1 750 Meds/Results Medications: Active Medications Generic Name Dose Route Start Last Admin Trade Name Freq PRN Reason Stop Dose Admin Acetaminophen 650 mg 04/10/24 20:08 04/12/24 20:22 Acetaminophen 325 Mg Tablet PO 650 mg Q4H PRN Administration pain 1-3 or fever Albuterol/Ipratropium 3 ml 04/09/24 12:47 Ipratropium 0.5 Mg/Albuterol Sulfate 2.5 Mg Ampul.Neb 3 Ml INHALATION Q6HRT PRN respiratory ditress, wheezing Amoxicillin/Clavulanate Potassium 1 tablet 04/13/24 09:00 Amoxicillin/Clavulanate K 875-125 Mg Tab PO 04/19/24 08:59 Q12HR CAROL Apixaban 2.5 mg 04/09/24 21:00 04/12/24 20:22 Apixaban 2.5 Mg Tablet PO 2.5 mg Q12HR CAROL Administration Divalproex Sodium 250 mg 04/09/24 13:00 04/13/24 06:26 Divalproex Sodium Er 250 Mg Tab.24h PO 250 mg Q8HR CAROL Administration Gabapentin 300 mg 04/09/24 13:00 04/12/24 17:39 Gabapentin 300 Mg Capsule PO 300 mg TID CAROL Administration Levetiracetam 1,000 mg in 100 mls @ 400 mls/hr 04/09/24 21:00 04/12/24 22:07 Keppra Iv IVPB Infused Q12HR CAROL Infusion Albumin Human 100 mls @ 60 mls/hr 04/11/24 12:00 04/13/24 06:26 Albutein IVPB 04/13/24 11:59 60 mls/hr Q6HR CAROL Administration Midodrine 10 mg 04/10/24 14:00 04/13/24 09:23 Midodrine Hcl 10 Mg Tablet PO Not Given Q8H CAROL Mirtazapine 7.5 mg 04/09/24 21:00 04/12/24 20:22 Mirtazapine 7.5 Mg Tablet PO 7.5 mg HS CAROL Administration Olanzapine 5 mg 04/09/24 21:00 04/12/24 20:22 Olanzapine 5 Mg Tablet PO 5 mg Q12HR CAROL Administration Ondansetron HCl 4 mg 04/13/24 09:30 Ondansetron Inj 4 Mg/2 Ml Vial IV PUSH Q4H PRN Nausea And Vomiting Sodium Chloride 10 ml 04/09/24 06:00 04/13/24 06:26 Central Line Flush IV PUSH 10 ml Q8HR CAROL Administration Sodium Chloride 20 ml 04/09/24 03:40 Central Line Flush IV PUSH PRN PRN after blood draws Radiology Results: ITS Impressions Chest/Abdomen/Pelvis CT 04/09/24 05:16 Impression: Suspected minimal diffuse large bowel wall thickening. Correlate for infectio us/inflammatory colitis, or any possibility of early ischemic bowel. Atherosclerotic calcification of the aorta with complete occlusion of the aorta at its infrarenal aspect. Probable partial reconstitution at the level of the bilateral common femoral arteries. Consider vascular surgery consultation/follow-up as indicated. Head CT 04/09/24 05:20 Impression: No intracranial hemorrhage, mass, or acute infarct. Moderate generalized cerebral atrophy, with more pronounced, severe cerebellar atrophy. Chronic left frontal lobe infarct with background chronic microvascular ischemic changes in the white matter. Chest X-Ray 04/13/24 08:30 Impression: 1: Mild diffuse bilateral interstitial infiltrates which may represent edema or pneumonia. Quality VTE Prophylaxis VTE prophylaxis: pharmacologic ordered
[2024-04-13] MEDS: GABAPENTIN 300 MG CAPSULE PO ×3 (09:36→16:14)
[2024-04-13] MEDS: OLANZapine 5 MG TABLET PO ×2 (09:36→20:50)
[2024-04-13] MEDS: levETIRAcetam 1000MG/NACL100ML 1,000 MG/100 ML BAG 400 MG IVPB ×2 (09:36→20:55)
[2024-04-13] MEDS: AMOXICILLIN/CLAVULANATE K 875-125 MG TAB 1 TABLET PO ×2 (09:36→20:50)
[2024-04-13] MEDS: APIXABAN 2.5 MG TABLET PO ×2 (09:36→20:50)
[2024-04-13] MEDS: ACETAMINOPHEN 325 MG TABLET 650 MG PO (09:39)
[2024-04-13 09:40] LABS: Hematocrit 29.3 % (37.0-47.0); Hemoglobin 9.6 g/dL (12.0-15.0); Mean Corpuscular HGB Conc 32.8 g/dl (32-36); Mean Corpuscular Hemoglobin 30.7 pg (26-34); Mean Corpuscular Volume 93.6 fl (80-100); Mean Platelet Volume 9.8 fl (7.4-10.4); Platelet Count Result 263 k/mm3 (150-375); Red Blood Count 3.13 M/mm3 (4.2-5.4); Red Cell Distribution Width 15.2 % (11.5-14.5)
[2024-04-13] MEDS: ONDANSETRON INJ 4 MG/2 ML VIAL IV PUSH (09:40)
[2024-04-13 10:00] LABS: Alanine Aminotransferase 13 U/L (6-35); Albumin Level 4.8 g/dL (3.5-5.1); Alkaline Phosphatase 36 U/L (38-126); Anion Gap 12 mmol/L (4-12); Aspartate Amino Transferase 16 U/L (14-36); Bilirubin,Total 0.5 mg/dL (0.2-1.3); Blood Urea Nitrogen 6 mg/dL (7-17); Calcium 9.5 mg/dL (8.4-10.2); Carbon Dioxide 28 mmol/L (22-30); Chloride 105 mmol/L (98-107); Estimated CRCL calculation 76 ml/min; Estimated Glomerular Filt Rate > 60; Glucose 91 mg/dL (65-110); Magnesium 2.1 mg/dL (1.6-2.3); Sodium 145 mmol/L (137-145)
[2024-04-13] MEDS: POTASSIUM CHLORIDE 20 MEQ PACKET (FOR LIQUID) 40 MEQ PO ×2 (12:14→18:51)
[2024-04-13] MEDS: MIDODRINE HCL 10 MG TABLET PO ×2 (13:54→21:00)
[2024-04-13] MEDS: MIRTAZAPINE 7.5 MG TABLET PO (20:50)
[2024-04-14] VITALS (9 sets, daily range): BP systolic 94–112; BP diastolic 49–68; PULSE 43–75; RESP 20–22; TEMP 36.6–36.7; O2SAT 92–97
[2024-04-14] MEDS: POTASSIUM CHLORIDE 20 MEQ PACKET (FOR LIQUID) 40 MEQ PO (00:04)
[2024-04-14] MEDS: DIVALPROEX SODIUM ER 250 MG TAB.24H PO ×3 (05:49→21:46)
[2024-04-14] MEDS: MIDODRINE HCL 10 MG TABLET PO ×3 (05:50→21:46)
[2024-04-14] MEDS: CENTRAL LINE FLUSH 10 ML IV PUSH ×3 (05:57→21:46)
[2024-04-14 06:02] LABS: Hematocrit 33.1 % (37.0-47.0); Hemoglobin 10.6 g/dL (12.0-15.0); Mean Corpuscular Hemoglobin 30.1 pg (26-34); Mean Platelet Volume 9.8 fl (7.4-10.4); Platelet Count Result 299 k/mm3 (150-375); Red Blood Count 3.52 M/mm3 (4.2-5.4); Red Cell Distribution Width 15.3 % (11.5-14.5); White Blood Count 8.1 K/mm3 (4.5-10.0)
[2024-04-14 06:15] LABS: Alanine Aminotransferase 12 U/L (6-35); Albumin Level 4.2 g/dL (3.5-5.1); Alkaline Phosphatase 53 U/L (38-126); Anion Gap 9 mmol/L (4-12); Aspartate Amino Transferase 18 U/L (14-36); Bilirubin,Total 0.6 mg/dL (0.2-1.3); Blood Urea Nitrogen 7 mg/dL (7-17); Calcium 9.3 mg/dL (8.4-10.2); Carbon Dioxide 26 mmol/L (22-30); Chloride 109 mmol/L (98-107); Estimated CRCL calculation 76 ml/min; Estimated Glomerular Filt Rate > 60; Glucose 98 mg/dL (65-110); Magnesium 2.2 mg/dL (1.6-2.3); Potassium 4.2 mmol/L (3.4-5.0); Sodium 144 mmol/L (137-145)
--- NOTE | 2024-04-14 08:47 | PM.IMPN ---
Progress Note: A&P Assessment and Plan (1) Shock: Code(s): R57.9 - Shock, unspecified Status: Acute Assessment and Plan: Patient presented with altered mental status, hypotension, refractory to IV fluid bolus per sepsis protocol, central line was inserted, patient started on Levophed Shock has improved and patient has been weaned off Levophed and IV fluid -likely etiology hypovolemia and colitis - Chest x-ray, UA were within normal limits -lactic acids and procalcitonin were normal -WBC count was within normal limits -initially was on Zosyn (04/08) which has been switched to Augmentin p.o. -04/10: Discontinue vancomycin since MRSA nares is negative -04/08: Blood cultures were obtained and negative till now (2) Colitis: Code(s): K52.9 - Noninfective gastroenteritis and colitis, unspecified Status: Acute Assessment and Plan: Infectious/inflammatory versus hypoperfusion colitis as seen on CT scan of the chest abdomen and pelvis as under Change Zosyn to p.o. Augmentin Currently denies any abdominal pain and no tenderness on exam -hemodynamic support 04/08: CT scan chest abdomen and pelvis Impression: Suspected minimal diffuse large bowel wall thickening. Correlate for infectious/inflammatory colitis, or any possibility of early ischemic bowel. Atherosclerotic calcification of the aorta with complete occlusion of the aorta at its infrarenal aspect. Probable partial reconstitution at the level of the bilateral common femoral arteries. Consider vascular surgery consultation/follow-up as indicated. (3) Altered mental status: Qualifiers: Altered mental status type: unspecified Qualified Code(s): R41.82 - Altered mental status, unspecified Code(s): R41.82 - Altered mental status, unspecified Status: Inactive Assessment and Plan: Altered mental status resolved after IV fluids and started on Levophed with her blood pressure is improving. (4) Epilepsy: Code(s): G40.909 - Epilepsy, unspecified, not intractable, without status epilepticus Status: Acute Assessment and Plan: Patient has history of epilepsy likely related to a CVA, on Keppra and Depakote at home -continue Keppra and Depakote (5) Pulmonary embolism: Code(s): I26.99 - Other pulmonary embolism without acute cor pulmonale Status: Acute Assessment and Plan: History of pulmonary embolism, continue home Eliquis (6) Autonomic neuropathy: Code(s): G90.9 - Disorder of the autonomic nervous system, unspecified Status: Acute Assessment and Plan: Patient has autonomic neuropathy, on midodrine at home which could be related also to hypotension since she has not been taking that for the last couple of days prior to admission -continue midodrine which she takes at home -midodrine could explain her sinus bradycardia (7) COPD (chronic obstructive pulmonary disease): Code(s): J44.9 - Chronic obstructive pulmonary disease, unspecified Status: Acute Assessment and Plan: DuoNebs p.r.n. (8) Dementia with psychosis: Code(s): F03.92 - Unspecified dementia, unspecified severity, with psychotic disturbance Status: Acute Assessment and Plan: Continue olanzapine (9) Schizophrenia: Code(s): F20.9 - Schizophrenia, unspecified Status: Acute Assessment and Plan: Medications as above (10) Pulmonary edema: Code(s): J81.1 - Chronic pulmonary edema Status: Acute Assessment and Plan: Patient requiring 2 L of oxygen. Chest x-ray shows mild diffuse bilateral interstitial infiltrates Patient positive on intake and output balance Echo showed diastolic dysfunction and EF of 60-65 per Lasix IV 20 mg Check BNP Incentive spirometry Plan DVT prophylaxis: Eliquis Stress ulcer prophylaxis: Not indicated Nutrition: Regular diet ordered Code Status: Full code (patient has a state guardian) Incentive spirometry Continue PT OT Up in chair Subjective Date/time seen: 04/14/24 Afebrile. Tolerating p.o. diet. Blood pressure adequate. Sinus bradycardia on the monitor. Denies any new complaints. Patient denies fever, chest pain, shortness of breath, cough, nausea vomiting, abdominal pain,, diarrhea, headache or constipation. All other systems were reviewed and were negative Review of Systems Review of Systems: All systems reviewed & are unremarkable except as noted in HPI and below Exam Narrative: General: Pleasant female in no acute distress HEENT:? Pupils equal and reactive, sclerae sclera, moist oral mucosa Neck:? Supple Respiratory:? Clear to auscultation bilaterally, decreased at bases, no wheezing, adequate air entry Cardiac:? S1-S2 normal, regular rate and rhythm Abdomen:? 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 Patient is awake, alert, orientedx1 . She does follow simple commands in all extremities, slow to respond Skin:? Normal skin turgor, no lesions noted, warm and dry Psych:? Flat affect Objective Data Vital Signs Vital Signs: Vital Signs - 24 hr 04/13/24 09:52 04/13/24 12:00 04/13/24 12:30 Temperature 36.4 C Pulse Rate 55 L 67 67 Respiratory Rate 21 H Blood Pressure 91/46 L Pulse Oximetry 95 92 Oxygen Delivery Nasal Cannula Oxygen Flow Rate 4 04/13/24 14:00 04/13/24 16:00 04/13/24 16:00 Temperature 36.4 C Pulse Rate 54 L 49 L 80 Respiratory Rate 26 H Blood Pressure 90/55 L Pulse Oximetry 96 96 Oxygen Delivery Nasal Cannula Oxygen Flow Rate 2 04/13/24 20:00 04/13/24 20:40 04/14/24 00:00 Temperature Pulse Rate 65 50 L Respiratory Rate Blood Pressure Pulse Oximetry 97 Oxygen Delivery Nasal Cannula Oxygen Flow Rate 2 04/14/24 00:20 04/14/24 04:00 04/14/24 08:00 Temperature 36.7 C 36.6 C Pulse Rate 60 57 L 43 L Respiratory Rate 22 H 21 H Blood Pressure 112/65 94/49 L Pulse Oximetry 93 96 Oxygen Delivery Oxygen Flow Rate Intake/Output Intake/Output: Intake & Output 04/11/24 04/12/24 04/13/24 04/14/24 23:59 23:59 23:59 23:59 Intake Total 2065.2 2853.1 2250 960 Output Total 2050 5555 546 4919 Balance 15.2 903.1 1650 -565 Meds/Results Medications: Active Medications Generic Name Dose Route Start Last Admin Trade Name Freq PRN Reason Stop Dose Admin Acetaminophen 650 mg 04/10/24 20:08 04/13/24 09:39 Acetaminophen 325 Mg Tablet PO 650 mg Q4H PRN Administration pain 1-3 or fever Albuterol/Ipratropium 3 ml 04/09/24 12:47 Ipratropium 0.5 Mg/Albuterol Sulfate 2.5 Mg Ampul.Neb 3 Ml INHALATION Q6HRT PRN respiratory ditress, wheezing Amoxicillin/Clavulanate Potassium 1 tablet 04/13/24 09:00 04/13/24 20:50 Amoxicillin/Clavulanate K 875-125 Mg Tab PO 04/19/24 08:59 1 tablet Q12HR CAROL Administration Apixaban 2.5 mg 04/09/24 21:00 04/13/24 20:50 Apixaban 2.5 Mg Tablet PO 2.5 mg Q12HR CAROL Administration Divalproex Sodium 250 mg 04/09/24 13:00 04/14/24 05:49 Divalproex Sodium Er 250 Mg Tab.24h PO 250 mg Q8HR CAROL Administration Gabapentin 300 mg 04/09/24 13:00 04/13/24 16:14 Gabapentin 300 Mg Capsule PO 300 mg TID CAROL Administration Levetiracetam 1,000 mg in 100 mls @ 400 mls/hr 04/09/24 21:00 04/13/24 20:55 Keppra Iv IVPB 400 mls/hr Q12HR CAROL Administration Midodrine 10 mg 04/10/24 14:00 04/14/24 05:50 Midodrine Hcl 10 Mg Tablet PO 10 mg Q8H CAROL Administration Mirtazapine 7.5 mg 04/09/24 21:00 04/13/24 20:50 Mirtazapine 7.5 Mg Tablet PO 7.5 mg HS CAROL Administration Olanzapine 5 mg 04/09/24 21:00 04/13/24 20:50 Olanzapine 5 Mg Tablet PO 5 mg Q12HR CAROL Administration Ondansetron HCl 4 mg 04/13/24 09:30 04/13/24 09:40 Ondansetron Inj 4 Mg/2 Ml Vial IV PUSH 4 mg Q4H PRN Administration Nausea And Vomiting Sodium Chloride 10 ml 04/09/24 06:00 04/14/24 05:57 Central Line Flush IV PUSH 10 ml Q8HR CAROL Administration Sodium Chloride 20 ml 04/09/24 03:40 Central Line Flush IV PUSH PRN PRN after blood draws Radiology Results: ITS Impressions Chest/Abdomen/Pelvis CT 04/09/24 05:16 Impression: Suspected minimal diffuse large bowel wall thickening. Correlate for infectious/inflammatory colitis, or any possibility of early ischemic bowel. Atherosclerotic calcification of the aorta with complete occlusion of the aorta at its infrarenal aspect. Probable partial reconstitution at the level of the bilateral common femoral arteries. Consider vascular surgery consultation/follow-up as indicated. Head CT 04/09/24 05:20 Impression: No intracranial hemorrhage, mass, or acute infarct. Moderate generalized cerebral atrophy, with more pronounced, severe cerebellar atrophy. Chronic left frontal lobe infarct with background chronic microvascular ischemic changes in the white matter. Chest X-Ray 04/13/24 08:30 Impression: 1: Mild diffuse bilateral interstitial infiltrates which may represent edema or pneumonia. Labs Labs: Laboratory Results - last 24 hr 04/13/24 04/14/24 09:34 05:49 WBC 8.0 8.1 RBC 3.13 L 3.52 L Hgb 9.6 L 10.6 L Hct 29.3 L 33.1 L MCV 93.6 94.0 MCH 30.7 30.1 MCHC 32.8 32.0 RDW 15.2 H 15.3 H Plt Count 263 299 MPV 9.8 9.8 Sodium 145 144 Potassium 3.0 L 4.2 Chloride 105 109 H Carbon Dioxide 28 26 Anion Gap 12 9 BUN 6 L 7 Creatinine 0.58 L 0.59 L Estim Creat Clear Calc 76 76 Estimated GFR > 60 > 60 Glucose 91 98 Calcium 9.5 9.3 Magnesium 2.1 2.2 Total Bilirubin 0.5 0.6 AST 16 18 ALT 13 12 Alkaline Phosphatase 36 L 53 Total Protein 7.0 6.0 L Albumin 4.8 4.2 Quality VTE Prophylaxis VTE prophylaxis: pharmacologic ordered
[2024-04-14] MEDS: levETIRAcetam 1000MG/NACL100ML 1,000 MG/100 ML BAG 400 MG IVPB ×2 (09:03→21:59)
[2024-04-14] MEDS: OLANZapine 5 MG TABLET PO ×2 (09:03→21:46)
[2024-04-14] MEDS: GABAPENTIN 300 MG CAPSULE PO ×3 (09:03→17:03)
[2024-04-14] MEDS: AMOXICILLIN/CLAVULANATE K 875-125 MG TAB 1 TABLET PO ×2 (09:03→21:46)
[2024-04-14] MEDS: APIXABAN 2.5 MG TABLET PO ×2 (09:03→21:46)
[2024-04-14] MEDS: FUROSEMIDE INJ 40 MG/4 ML VIAL 20 MG IV PUSH (09:40)
[2024-04-14 14:11] LABS: Anion Gap 11 mmol/L (4-12); Blood Urea Nitrogen 10 mg/dL (7-17); Calcium 9.7 mg/dL (8.4-10.2); Carbon Dioxide 30 mmol/L (22-30); Chloride 106 mmol/L (98-107); Estimated CRCL calculation 73 ml/min; Estimated Glomerular Filt Rate > 60; Glucose 121 mg/dL (65-110); Sodium 147 mmol/L (137-145)
[2024-04-14] MEDS: MIRTAZAPINE 7.5 MG TABLET PO (21:46)
[2024-04-15] VITALS (10 sets, daily range): BP systolic 93–125; BP diastolic 53–66; PULSE 57–85; RESP 20–23; TEMP 36.8–37.3; O2SAT 92–96
[2024-04-15 05:02] LABS: Hematocrit 37.5 % (37.0-47.0); Mean Corpuscular Hemoglobin 30.5 pg (26-34); Mean Corpuscular Volume 95.2 fl (80-100); Mean Platelet Volume 9.6 fl (7.4-10.4); Platelet Count Result 353 k/mm3 (150-375); Red Blood Count 3.94 M/mm3 (4.2-5.4); Red Cell Distribution Width 15.4 % (11.5-14.5); White Blood Count 11.4 K/mm3 (4.5-10.0)
[2024-04-15 05:14] LABS: Alanine Aminotransferase 15 U/L (6-35); Albumin Level 4.4 g/dL (3.5-5.1); Alkaline Phosphatase 57 U/L (38-126); Anion Gap 9 mmol/L (4-12); Aspartate Amino Transferase 25 U/L (14-36); Bilirubin,Total 0.6 mg/dL (0.2-1.3); Blood Urea Nitrogen 12 mg/dL (7-17); Calcium 9.6 mg/dL (8.4-10.2); Carbon Dioxide 28 mmol/L (22-30); Chloride 108 mmol/L (98-107); Estimated CRCL calculation 73 ml/min; Estimated Glomerular Filt Rate > 60; Glucose 120 mg/dL (65-110); Magnesium 2.3 mg/dL (1.6-2.3); Potassium 4.1 mmol/L (3.4-5.0); Sodium 145 mmol/L (137-145)
[2024-04-15] MEDS: DIVALPROEX SODIUM ER 250 MG TAB.24H PO ×3 (06:57→20:45)
[2024-04-15] MEDS: CENTRAL LINE FLUSH 10 ML IV PUSH ×3 (06:57→21:02)
[2024-04-15] MEDS: MIDODRINE HCL 10 MG TABLET PO ×3 (06:57→20:45)
--- NOTE | 2024-04-15 08:57 | PM.IMPN ---
Progress Note: A&P Assessment and Plan (1) Shock: Code(s): R57.9 - Shock, unspecified Status: Acute Assessment and Plan: Patient presented with altered mental status, hypotension, refractory to IV fluid bolus per sepsis protocol, central line was inserted, patient started on Levophed Shock has improved and patient has been weaned off Levophed and IV fluid -likely etiology hypovolemia and colitis - Chest x-ray, UA were within normal limits -lactic acids and procalcitonin were normal -WBC count was within normal limits -initially was on Zosyn (04/08) which has been switched to Augmentin p.o. -04/10: Discontinue vancomycin since MRSA nares is negative -04/08: Blood cultures were obtained and negative till now (2) Colitis: Code(s): K52.9 - Noninfective gastroenteritis and colitis, unspecified Status: Acute Assessment and Plan: Infectious/inflammatory versus hypoperfusion colitis as seen on CT scan of the chest abdomen and pelvis as under Change Zosyn to p.o. Augmentin Currently denies any abdominal pain and no tenderness on exam -hemodynamic support 04/08: CT scan chest abdomen and pelvis Impression: Suspected minimal diffuse large bowel wall thickening. Correlate for infectious/inflammatory colitis, or any possibility of early ischemic bowel. Atherosclerotic calcification of the aorta with complete occlusion of the aorta at its infrarenal aspect. Probable partial reconstitution at the level of the bilateral common femoral arteries. Consider vascular surgery consultation/follow-up as indicated. (3) Altered mental status: Qualifiers: Altered mental status type: unspecified Qualified Code(s): R41.82 - Altered mental status, unspecified Code(s): R41.82 - Altered mental status, unspecified Status: Inactive Assessment and Plan: Altered mental status resolved after IV fluids and started on Levophed with her blood pressure is improving. (4) Epilepsy: Code(s): G40.909 - Epilepsy, unspecified, not intractable, without status epilepticus Status: Acute Assessment and Plan: Patient has history of epilepsy likely related to a CVA, on Keppra and Depakote at home -continue Keppra and Depakote (5) Pulmonary embolism: Code(s): I26.99 - Other pulmonary embolism without acute cor pulmonale Status: Acute Assessment and Plan: History of pulmonary embolism, continue home Eliquis (6) Autonomic neuropathy: Code(s): G90.9 - Disorder of the autonomic nervous system, unspecified Status: Acute Assessment and Plan: Patient has autonomic neuropathy, on midodrine at home which could be related also to hypotension since she has not been taking that for the last couple of days prior to admission -continue midodrine which she takes at home -midodrine could explain her sinus bradycardia (7) COPD (chronic obstructive pulmonary disease): Code(s): J44.9 - Chronic obstructive pulmonary disease, unspecified Status: Acute Assessment and Plan: DuoNebs p.r.n. (8) Dementia with psychosis: Code(s): F03.92 - Unspecified dementia, unspecified severity, with psychotic disturbance Status: Acute Assessment and Plan: Continue olanzapine (9) Schizophrenia: Code(s): F20.9 - Schizophrenia, unspecified Status: Acute Assessment and Plan: Medications as above (10) Pulmonary edema: Code(s): J81.1 - Chronic pulmonary edema Status: Acute Assessment and Plan: Patient requiring 2 L of oxygen. 04/14 Chest x-ray showed mild diffuse bilateral interstitial infiltrates Patient positive on intake and output balance Echo showed diastolic dysfunction and EF of 60-65 per Lasix IV 20 mg was given Check BNP Incentive spirometry Plan DVT prophylaxis: Eliquis Stress ulcer prophylaxis: Not indicated Nutrition: Regular diet ordered Code Status: Full code (patient has a state guardian) Incentive spirometry Continue PT OT Up in chair Patient now awaits placement Subjective Date/time seen: 04/15/24 No new complaints. Patient on 2 L nasal cannula. Hemodynamically stable. Slept well. Denies any new complaints. Patient denies fever, chest pain, shortness of breath, cough, nausea vomiting, abdominal pain,, diarrhea, headache or constipation. All other systems were reviewed and were negative Review of Systems Review of Systems: All systems reviewed & are unremarkable except as noted in HPI and below Exam Narrative: General: Pleasant female in no acute distress HEENT:? Pupils equal and reactive, sclerae sclera, moist oral mucosa Neck:? Supple Respiratory:? Clear to auscultation bilaterally, decreased at bases, no wheezing, adequate air entry Cardiac:? S1-S2 normal, regular rate and rhythm Abdomen:? 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 Patient is awake, alert, orientedx1 . She does follow simple commands in all extremities, slow to respond Skin:? Normal skin turgor, no lesions noted, warm and dry Psych:? Flat affect Objective Data Vital Signs Vital Signs: Vital Signs - 24 hr 04/14/24 12:00 04/14/24 15:41 04/14/24 16:00 Temperature 36.7 C Pulse Rate 70 72 75 Respiratory Rate 20 Blood Pressure 105/68 Pulse Oximetry 92 Oxygen Delivery Oxygen Flow Rate Fraction of Inspired Oxygen 04/14/24 20:00 04/14/24 21:30 04/15/24 00:00 Temperature 36.8 C Pulse Rate 66 57 L Respiratory Rate 23 H Blood Pressure 93/61 L Pulse Oximetry 95 93 Oxygen Delivery Nasal Cannula Oxygen Flow Rate 2 Fraction of Inspired Oxygen 04/15/24 00:00 04/15/24 04:00 04/15/24 07:57 Temperature 37.3 C Pulse Rate 58 L 82 60 Respiratory Rate 21 H Blood Pressure 97/65 L Pulse Oximetry 96 Oxygen Delivery Oxygen Flow Rate Fraction of Inspired Oxygen 04/15/24 08:49 Temperature Pulse Rate Respiratory Rate Blood Pressure Pulse Oximetry 92 Oxygen Delivery Nasal Cannula Oxygen Flow Rate 2 Fraction of Inspired Oxygen 28 Intake/Output Intake/Output: Intake & Output 04/12/24 04/13/24 04/14/24 04/15/24 23:59 23:59 23:59 23:59 Intake Total 2853.1 2350 1510 690 Output Total 0104 040 4920 250 Balance 903.1 1750 -1915 440 Meds/Results Medications: Active Medications Generic Name Dose Route Start Last Admin Trade Name Prosperq PRN Reason Stop Dose Admin Acetaminophen 650 mg 04/10/24 20:08 04/13/24 09:39 Acetaminophen 325 Mg Tablet PO 650 mg Q4H PRN Administration pain 1-3 or fever Albuterol/Ipratropium 3 ml 04/09/24 12:47 Ipratropium 0.5 Mg/Albuterol Sulfate 2.5 Mg Ampul.Neb 3 Ml INHALATION Q6HRT PRN respiratory ditress, wheezing Amoxicillin/Clavulanate Potassium 1 tablet 04/13/24 09:00 04/14/24 21:46 Amoxicillin/Clavulanate K 875-125 Mg Tab PO 04/19/24 08:59 1 tablet Q12HR CAROL Administration Apixaban 2.5 mg 04/09/24 21:00 04/14/24 21:46 Apixaban 2.5 Mg Tablet PO 2.5 mg Q12HR CAROL Administration Divalproex Sodium 250 mg 04/09/24 13:00 04/15/24 06:57 Divalproex Sodium Er 250 Mg Tab.24h PO 250 mg Q8HR CAROL Administration Gabapentin 300 mg 04/09/24 13:00 04/14/24 17:03 Gabapentin 300 Mg Capsule PO 300 mg TID CAROL Administration Levetiracetam 1,000 mg in 100 mls @ 400 mls/hr 04/09/24 21:00 04/14/24 21:59 Keppra Iv IVPB 400 mls/hr Q12HR CAROL Administration Midodrine 10 mg 04/10/24 14:00 04/15/24 06:57 Midodrine Hcl 10 Mg Tablet PO 10 mg Q8H CAROL Administration Mirtazapine 7.5 mg 04/09/24 21:00 04/14/24 21:46 Mirtazapine 7.5 Mg Tablet PO 7.5 mg HS CAROL Administration Olanzapine 5 mg 04/09/24 21:00 04/14/24 21:46 Olanzapine 5 Mg Tablet PO 5 mg Q12HR CAROL Administration Ondansetron HCl 4 mg 04/13/24 09:30 04/13/24 09:40 Ondansetron Inj 4 Mg/2 Ml Vial IV PUSH 4 mg Q4H PRN Administration Nausea And Vomiting Sodium Chloride 10 ml 04/09/24 06:00 04/15/24 06:57 Central Line Flush IV PUSH 10 ml Q8HR CAROL Administration Sodium Chloride 20 ml 04/09/24 03:40 Central Line Flush IV PUSH PRN PRN after blood draws Radiology Results: ITS Impressions Chest/Abdomen/Pelvis CT 04/09/24 05:16 Impression: Suspected minimal diffuse large bowel wall thickening. Correlate for infectious/inflammatory colitis, or any possibility of early ischemic bowel. Atherosclerotic calcification of the aorta with complete occlusion of the aorta at its infrarenal aspect. Probable partial reconstitution at the level of the bilateral common femoral arteries. Consider vascular surgery consultation/follow-up as indicated. Head CT 04/09/24 05:20 Impression: No intracranial hemorrhage, mass, or acute infarct. Moderate generalized cerebral atrophy, with more pronounced, severe cerebellar atrophy. Chronic left frontal lobe infarct with background chronic microvascular ischemic changes in the white matter. Chest X-Ray 04/13/24 08:30 Impression: 1: Mild diffuse bilateral interstitial infiltrates which may represent edema or pneumonia. Labs Labs: Laboratory Results - last 24 hr 04/14/24 04/15/24 13:43 04:56 WBC 11.4 H RBC 3.94 L Hgb 12.0 Hct 37.5 MCV 95.2 MCH 30.5 MCHC 32.0 RDW 15.4 H Plt Count 353 MPV 9.6 Sodium 147 H 145 Potassium 4.0 4.1 Chloride 106 108 H Carbon Dioxide 30 28 Anion Gap 11 9 BUN 10 12 Creatinine 0.62 L 0.61 L Estim Creat Clear Calc 73 73 Estimated GFR > 60 > 60 Glucose 121 H 120 H Calcium 9.7 9.6 Magnesium 2.3 Total Bilirubin 0.6 AST 25 ALT 15 Alkaline Phosphatase 57 Total Protein 7.0 Albumin 4.4 Quality VTE Prophylaxis VTE prophylaxis: pharmacologic ordered
--- OUTSIDE RECORDS SUMMARY | 2024-04-15 09:24 | XMS_ITS | CONTINUITY OF CARE DOCUMENT ---
Author Name haris carballo Address Unknown Organization [facility] Address [address] [address] [place] [address] Phone [phone] Care Team Providers Care Pest Control Technician Name Role Phone Paddy Lucio MD Unavailable [phone] Paddy Lucio MD Unavailable [phone] PROBLEMS Condition Status Date Provider Notes HEPATITIS C- ? active ? Yuan Cueto MD SCHIZOAFFECTIVE DISORDER active ? Yuan Cueto MD DEPRESSION active ? Yuan Cueto MD HYPOTHYROIDISM active ? Yuan Cueto MD MALNUTRITION active ? Yuan Cueto MD MYOCARDIAL INFARCTION-NON ST ELEVATION active ? Yuan Cueto MD ADULT RESPIRATORY DISTRESS SYNDROME active ? Yuan Cueto MD HEPATIC ENCEPHALOPATHY active Yuan Donaldson NICOTINE ADDICTION active ? Yuan Cueto MD ALCOHOL ABUSE active ? Yuan Cueto MD SEIZURE DISORDER active ? Yuan Cueto MD ENCOUNTERS Date Type Provider Location Encounter Diag nosis 12/07 - 12/08 In-person encounter Office Visit Yuan Cueto MD [place] [facility] SEIZURE DISORDERALCOHOL ABUSENICOTINE ADDICTIONHEPATIC ENCEPHALOPATHYADULT RESPIRATORY DISTRESS SYNDROMEMYOCARDIAL INFARCTION-NON ST ELEVATIONMALNUTRITIONHYPOTHYROIDISMDEPRESSIONSCHIZOA FFECTIVE DISORDERHEPATITIS C- ? VITAL SIGNS Date Observation Value Provider blood pressure, diastolic 61 mm[Hg] Ralph Mehta blood pressure, systolic 97 mm[Hg] Fabián Mehta pulse rate 61 /min Claudia bainser oxygen saturation, oximetry 99 % Claudia Mehta respiratory rate E&M 16 /min Claudia dey weight E&M 105.8 [lb_av] Claudia otero ALLERGIES No Known Drug Allergies RESULTS Date Observation Value Provider Reference Range Interpretation Location platelet count 423 10*[facility] hematocrit, blood 41.4 % [facility] international normalized ratio (INR) 1.1 Jeanne Flores thyroid stimulating hormone, serum 4.600 u[IU]/mL [facility] D-dimer quantitative mcg/mL 417 ug/mL [facility] B-type natriuretic peptide 577 pg/mL [facility] alanine aminotransferase (SGPT), serum 52 1/L [facility] aspartate aminotransferase (SGOT), serum 30 1/L [facility] creatinine, serum 0.31 mg/dL [facility] Mark potassium, serum 3.8 mmol/L [facility] sodium, serum 142 mmol/L [facility] Mark HISTORY OF MEDICATION USE Medication Status Instructions Dates Provider Indications Com ments ASPIRIN LOW DOSE 81 MG ORAL TABLET active take one pill a day 5 Claudia Mehta CELEXA 20 MG ORAL TABLET active take one pill a day 5 Claudia Mehta CALCIUM 600 600 MG ORAL TABLET active take one pill three times a day 5 Claudia Mehta BENZTROPINE MESYLATE 0.5 MG ORAL TABLET active take one pill a day 5 Claudia Mehta ACEPHEN 325 MG RECTAL SUPPOSITORY active take 2 pills every 6 hours as needed 5 Claudia Mehta THIAMINE CAPSULE active take one pill a day 5 Claudia Mehta THERA ORAL TABLET active take one pill a day 5 Claudia Mehta ALDACTONE 25 MG ORAL TABLET active take one pill a day 5 Claudia Mehta RANITIDINE HCL 150 MG ORAL CAPSULE active take one pill twice a day 5 Claudia Mehta DILANTIN 100 MG ORAL CAPSULE active take one pill every 8 hours 5 Claudia Mehta INVEGA 6 MG ORAL TABLET EXTENDED RELEASE 24 HOUR active take one pill a day 5 Claudia Mehta ALLFEN TABS active every 6 hours as needed 5 Claudia Mehta FOSINOPRIL SODIUM 10 MG ORAL TABLET active take a half a pill a day 5 Claudia Mehta FOSAMAX 70 MG ORAL TABLET active take one a week 5 Claudia Mehta FOLIC ACID 1 MG ORAL TABLET active take one pill a day 5 Claudia Mehta VITAMIN D2 TABLET active once weekly 5 Claudia Mehta SOCIAL HISTORY Date Observation Value Provider drug use none Yuan Cueto MD drug use, illicit, d rug of choice Unknown Yuan Cueto MD alcohol use, average drinks per day recently quit Yuan Cueto MD social history E&M Marital Statu s: L demetris alone E thnicity: Denzel Alston RN social history reviewed E&M reviewed Denzel Alston RN physical exercise, f requency, days per week no [employer] caffeine use, averag e drinks per day yes [employer] alcohol use, average drinks per day none [employer] number of years as a smoker 10 years or m ore [employer] smoking status Quit [employer] MENTAL STATUS Date Observation Value Provider assessment of judgment and insight E&M De pressed affect Denzel Alston RN INSURANCE PROVIDERS Payer name Policy type / Coverage type [employer] party ID [employer] MEDICAID (2) Medicaid [id number] TREATMENT PLAN Date Name Stress Test - Adenos ine
[2024-04-15 09:31] LABS: NT Pro B Type Natriuretic Pept 1120 pg/mL (19.9-100)
[2024-04-15] MEDS: levETIRAcetam 1000MG/NACL100ML 1,000 MG/100 ML BAG 400 MG IVPB ×2 (11:03→21:01)
[2024-04-15] MEDS: GABAPENTIN 300 MG CAPSULE PO ×3 (11:04→21:01)
[2024-04-15] MEDS: OLANZapine 5 MG TABLET PO ×2 (11:04→20:45)
[2024-04-15] MEDS: AMOXICILLIN/CLAVULANATE K 875-125 MG TAB 1 TABLET PO ×2 (11:04→20:45)
[2024-04-15] MEDS: APIXABAN 2.5 MG TABLET PO ×2 (11:04→20:45)
--- NOTE | 2024-04-15 13:20 | PC.NURSE ---
This patient, Rhonda Hall, was transferred to [facility] on 04/15/24 at 1320. Personal belongings sent with patient. Report given to Dolores. Appropriate documentation sent with patient.
--- NOTE | 2024-04-15 14:03 | PC.NURSE ---
This patient, Rhonda Hall, was received from [facility] on 04/15/24 at 1403. Patient/family oriented to unit policies and routines
[2024-04-15] MEDS: MIRTAZAPINE 7.5 MG TABLET PO (20:44)
[2024-04-16] VITALS (9 sets, daily range): BP systolic 105; BP diastolic 51–59; PULSE 47–75; RESP 14–20; TEMP 36.4–36.8; O2SAT 93–94
[2024-04-16] MEDS: CENTRAL LINE FLUSH 10 ML IV PUSH ×3 (05:59→20:29)
[2024-04-16] MEDS: DIVALPROEX SODIUM ER 250 MG TAB.24H PO ×3 (05:59→20:28)
[2024-04-16] MEDS: MIDODRINE HCL 10 MG TABLET PO ×3 (05:59→20:29)
[2024-04-16 06:23] LABS: Hematocrit 33.4 % (37.0-47.0); Hemoglobin 10.8 g/dL (12.0-15.0); Mean Corpuscular HGB Conc 32.3 g/dl (32-36); Mean Corpuscular Hemoglobin 30.2 pg (26-34); Mean Corpuscular Volume 93.3 fl (80-100); Mean Platelet Volume 9.8 fl (7.4-10.4); Platelet Count Result 325 k/mm3 (150-375); Red Blood Count 3.58 M/mm3 (4.2-5.4); Red Cell Distribution Width 15.4 % (11.5-14.5); White Blood Count 10.6 K/mm3 (4.5-10.0)
[2024-04-16 06:38] LABS: Alanine Aminotransferase 14 U/L (6-35); Albumin Level 4.1 g/dL (3.5-5.1); Alkaline Phosphatase 66 U/L (38-126); Anion Gap 8 mmol/L (4-12); Aspartate Amino Transferase 24 U/L (14-36); Bilirubin,Total 0.6 mg/dL (0.2-1.3); Blood Urea Nitrogen 10 mg/dL (7-17); Calcium 9.3 mg/dL (8.4-10.2); Carbon Dioxide 26 mmol/L (22-30); Chloride 105 mmol/L (98-107); Estimated CRCL calculation 83 ml/min; Estimated Glomerular Filt Rate > 60; Glucose 90 mg/dL (65-110); Magnesium 2.2 mg/dL (1.6-2.3); Potassium 3.6 mmol/L (3.4-5.0); Sodium 139 mmol/L (137-145)
[2024-04-16] MEDS: GABAPENTIN 300 MG CAPSULE PO ×3 (09:42→17:26)
[2024-04-16] MEDS: OLANZapine 5 MG TABLET PO ×2 (09:42→20:29)
[2024-04-16] MEDS: APIXABAN 2.5 MG TABLET PO ×2 (09:42→20:28)
[2024-04-16] MEDS: AMOXICILLIN/CLAVULANATE K 875-125 MG TAB 1 TABLET PO ×2 (09:42→20:29)
[2024-04-16] MEDS: levETIRAcetam 1000MG/NACL100ML 1,000 MG/100 ML BAG 400 MG IVPB ×2 (10:17→20:29)
--- NOTE | 2024-04-16 15:34 | P.PNIM_ITS ---
Progress Note: A&P Assessment and Plan (1) Shock: Code(s): R57.9 - Shock, unspecified Status: Acute Assessment and Plan: In ICU-Patient presented with altered mental status, hypotension, refractory to IV fluid bolus per sepsis protocol, central line was inserted, patient started on Levophed Shock has improved and patient has been weaned off Levophed and IV fluid -likely etiology hypovolemia and colitis - Chest x-ray, UA were within normal limits -lactic acids and procalcitonin were normal -WBC count was within normal limits -initially was on Zosyn (04/08) which has been switched to Augmentin p.o. -04/10: Discontinue vancomycin since MRSA nares is negative -04/08: Blood cultures were obtained and negative till now (2) Colitis: Code(s): K52.9 - Noninfective gastroenteritis and colitis, unspecified Status: Acute Assessment and Plan: Infectious/inflammatory versus hypoperfusion colitis as seen on CT scan of the chest abdomen and pelvis as under Change Zosyn to p.o. Augmentin Currently denies any abdominal pain and no tenderness on exam -hemodynamic support 04/08: CT scan chest abdomen and pelvis Impression: Suspected minimal diffuse large bowel wall thickening. Correlate for infectious/inflammatory colitis, or any possibility of early ischemic bowel. Atherosclerotic calcification of the aorta with complete occlusion of the aorta at its infrarenal aspect. Probable partial reconstitution at the level of the bilateral common femoral arteries. Consider vascular surgery consultation/follow-up as indicated. (3) Altered mental status: Qualifiers: Altered mental status type: unspecified Qualified Code(s): R41.82 - Altered mental status, unspecified Code(s): R41.82 - Altered mental status, unspecified Status: Inactive Assessment and Plan: Altered mental status resolved after IV fluids and started on Levophed with her blood pressure is improving. (4) Epilepsy: Code(s): G40.909 - Epilepsy, unspecified, not intractable, without status epilepticus Status: Acute Assessment and Plan: Patient has history of epilepsy likely related to a CVA, on Keppra and Depakote at home -continue Keppra and Depakote (5) Pulmonary embolism: Code(s): I26.99 - Other pulmonary embolism without acute cor pulmonale Status: Acute Assessment and Plan: History of pulmonary embolism, continue home Eliquis (6) Autonomic neuropathy: Code(s): G90.9 - Disorder of the autonomic nervous system, unspecified Status: Acute Assessment and Plan: Patient has autonomic neuropathy, on midodrine at home which could be related also to hypotension since she has not been taking that for the last couple of days prior to admission -continue midodrine which she takes at home -midodrine could explain her sinus bradycardia (7) COPD (chronic obstructive pulmonary disease): Code(s): J44.9 - Chronic obstructive pulmonary disease, unspecified Status: Acute Assessment and Plan: DuoNebs p.r.n. (8) Dementia with psychosis: Code(s): F03.92 - Unspecified dementia, unspecified severity, with psychotic disturbance Status: Acute Assessment and Plan: Continue olanzapine (9) Schizophrenia: Code(s): F20.9 - Schizophrenia, unspecified Status: Acute Assessment and Plan: Medications as above (10) Pulmonary edema: Code(s): J81.1 - Chronic pulmonary edema Status: Acute Assessment and Plan: Patient requiring 2 L of oxygen. 04/14 Chest x-ray showed mild diffuse bilateral interstitial infiltrates Patient positive on intake and output balance Echo showed diastolic dysfunction and EF of 60-65 per Lasix IV 20 mg was given Check BNP Incentive spirometry Plan DVT prophylaxis: Eliquis Stress ulcer prophylaxis: Not indicated Nutrition: Regular diet ordered Code Status: Full code (patient has a state guardian) Incentive spirometry Continue PT OT Up in chair Subjective Date/time seen: 04/16/24 15:34 Interval history: Patient transferred from ICU. Patient minimally speaks. Patient's prognosis is guarded. Review of Systems Review of Systems: All systems reviewed & are unremarkable except as noted in HPI and below ROS unobtainable: Yes unobtainable due to medical condition (Schizophrenia and dementia) and unobtainable due to mental status Exam Narrative: General: Pleasant female in no acute distress HEENT:? Pupils equal and reactive, sclerae sclera, moist oral mucosa Neck:? Supple Respiratory:? Clear to auscultation bilaterally, decreased at bases, no wh eezing, adequate air entry Cardiac:? S1-S2 normal, regular rate and rhythm Abdomen:? 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 Patient is awake, alert, orientedx1 . She does follow simple commands in all extremities, slow to respond Skin:? Normal skin turgor, no lesions noted, warm and dry Psych:? Flat affect Const: Other: Acutely ill-appearing, appears older than stated age, debilitated, lying in bed with head of bed flat, disheveled HENMT: Other: Mucous membranes are dry, poor dentition with broken teeth, head is normocephalic atraumatic, tongue deviates slightly to the left, nasal cannula in Eyes: Other: Pupils are equal and reactive, bilateral cataracts noted, no scleral icterus, eyes appear sunken Neck: Other: Thyroid see feels somewhat firm on the left side possible enlargement, trachea midline, patient older head turned to the left Resp: Other: Decreased breath sounds at the bases, no increased work of breathing Cardio: Other: Mildly bradycardic, 1+ bilateral radial pulses GI: Other: Distended, soft, normoactive bowel sounds : Other: Rock catheter in place with turbid appearing urine Skin: Other: Generalized pallor, no open wounds or sores, bruise to the right buttock, thickened dry dark material under fingernails Neuro: Other: The patient is oriented to name only, she does follow simple commands, her tongue does deviate slightly to the a left, pupils are equal and reactive, she moves bilateral upper extremities equally, weaker on left than right exam limited due to patient condition Extrem: Other: 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, moves bilateral upper extremities equally but 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 Psych: Other: Initially obtunded, now responsive to verbal stimuli, pleasantly confused, cooperative Objective Data Vital Signs Vital Signs: Vital Signs - 24 hr 04/15/24 16:00 04/15/24 20:00 04/15/24 20:44 Temperature 98.4 F Pulse Rate 63 62 66 Respiratory Rate 20 Blood Pressure 125/53 L Pulse Oximetry 95 Oxygen Delivery 04/16/24 00:00 04/16/24 04:00 04/16/24 06:31 Temperature 98.2 F Pulse Rate 66 51 L 65 Respiratory Rate 20 Blood Pressure 105/51 L Pulse Oximetry 93 Oxygen Delivery 04/16/24 08:00 04/16/24 08:00 04/16/24 12:00 Temperature Pulse Rate 47 L 49 L Respiratory Rate Blood Pressure Pulse Oximetry 93 Oxygen Delivery Room Air 04/16/24 15:31 Temperature 97.5 F L Pulse Rate 61 Respiratory Rate 14 Blood Pressure 105/56 L Pulse Oximetry 94 Oxygen Delivery Intake/Output Intake/Output: Intake & Output 04/13/24 04/14/24 04/15/24 04/16/24 23:59 23:59 23:59 23:59 Intake Total 2350 1610 1360 480 Output Total 600 3425 600 1500 Balance 1750 -1815 760 -1020 Meds/Results Medications: Active Medications Generic Name Dose Route Start Last Admin Trade Name Freq PRN Reason Stop Dose Admin Acetaminophen 650 mg 04/10/24 20:08 04/13/24 09:39 Acetaminophen 325 Mg Tablet PO 650 mg Q4H PRN Administration pain 1-3 or fever Albuterol/Ipratropium 3 ml 04/09/24 12:47 Ipratropium 0.5 Mg/Albuterol Sulfate 2.5 Mg Ampul.Neb 3 Ml INHALATION Q6HRT PRN respiratory ditress, wheezing Amoxicillin/Clavulanate Potassium 1 tablet 04/13/24 09:00 04/16/24 09:42 Amoxicillin/Clavulanate K 875-125 Mg Tab PO 04/19/24 08:59 1 tablet Q12HR CAROL Administration Apixaban 2.5 mg 04/09/24 21:00 04/16/24 09:42 Apixaban 2.5 Mg Tablet PO 2.5 mg Q12HR CAROL Administration Divalproex Sodium 250 mg 04/09/24 13:00 04/16/24 13:59 Divalproex Sodium Er 250 Mg Tab.24h PO 250 mg Q8HR CAROL Administration Gabapentin 300 mg 04/09/24 13:00 04/16/24 14:00 Gabapentin 300 Mg Capsule PO 300 mg TID CAROL Administration Levetiracetam 1,000 mg in 100 mls @ 400 mls/hr 04/09/24 21:00 04/16/24 10:17 Keppra Iv IVPB 400 mls/hr Q12HR CAROL Administration Midodrine 10 mg 04/10/24 14:00 04/16/24 13:59 Midodrine Hcl 10 Mg Tablet PO 10 mg Q8H CAROL Administration Mirtazapine 7.5 mg 04/09/24 21:00 04/15/24 20:44 Mirtazapine 7.5 Mg Tablet PO 7.5 mg HS CAROL Administration Olanzapine 5 mg 04/09/24 21:00 04/16/24 09:42 Olanzapine 5 Mg Tablet PO 5 mg Q12HR CAROL Administration Ondansetron HCl 4 mg 04/13/24 09:30 04/13/24 09:40 Ondansetron Inj 4 Mg/2 Ml Vial IV PUSH 4 mg Q4H PRN Administration Nausea And Vomiting Sodium Chloride 10 ml 04/09/24 06:00 04/16/24 14:00 Central Line Flush IV PUSH 10 ml Q8HR CAROL Administration Sodium Chloride 20 ml 04/09/24 03:40 Central Line Flush IV PUSH PRN PRN after blood draws Radiology Results: ITS Impressions Chest/Abdomen/Pelvis CT 04/09/24 05:16 Impression: Suspected minimal diffuse large bowel wall thickening. Correlate for infectious/inflammatory colitis, or any possibility of early ischemic bowel. Atherosclerotic calcification of the aorta with complete occlusion of the aorta at its infrarenal aspect. Probable partial reconstitution at the level of the bilateral common femoral arteries. Consider vascular surgery consultation/follow-up as indicated. Head CT 04/09/24 05:20 Impression: No intracranial hemorrhage, mass, or acute infarct. Moderate generalized cerebral atrophy, with more pronounced, severe cerebellar atrophy. Chronic left frontal lobe infarct with background chronic microvascular ischemic changes in the white matter. Chest X-Ray 04/13/24 08:30 Impression: 1: Mild diffuse bilateral interstitial infiltrates which may represent edema or pneumonia. Labs Labs: Laboratory Results - last 24 hr 04/16/24 05:38 WBC 10.6 H RBC 3.58 L Hgb 10.8 L Hct 33.4 L MCV 93.3 MCH 30.2 MCHC 32.3 RDW 15.4 H Plt Count 325 MPV 9.8 Sodium 139 Potassium 3.6 Chloride 105 Carbon Dioxide 26 Anion Gap 8 BUN 10 Creatinine 0.53 L Estim Creat Clear Calc 83 Estimated GFR > 60 Glucose 90 Calcium 9.3 Magnesium 2.2 Total Bilirubin 0.6 AST 24 ALT 14 Alkaline Phosphatase 66 Total Protein 7.0 Albumin 4.1 Quality VTE Prophylaxis VTE prophylaxis: pharmacologic ordered Hospitalist [facility] Advance Care Plan I have confirmed that the patient's Advanced Care Plan is present, code status is documented, or surrogate decision maker is listed in patient medical record.: Yes Medication Reconciliation I have utilized all available resources to obtain, update and review the patients current medications (includes all prescriptions, OTC, herbals, cannabis, and nutritional supplements).: Yes
[2024-04-16] MEDS: MIRTAZAPINE 7.5 MG TABLET PO (20:28)
[2024-04-17] VITALS (9 sets, daily range): BP systolic 92–105; BP diastolic 57–60; PULSE 52–77; RESP 16–20; TEMP 36.3–36.7; O2SAT 95–96
[2024-04-17] MEDS: DIVALPROEX SODIUM ER 250 MG TAB.24H PO ×3 (05:41→20:30)
[2024-04-17] MEDS: CENTRAL LINE FLUSH 10 ML IV PUSH ×3 (05:41→20:31)
[2024-04-17] MEDS: MIDODRINE HCL 10 MG TABLET PO ×3 (05:41→20:31)
[2024-04-17 06:25] LABS: Hematocrit 32.4 % (37.0-47.0); Hemoglobin 10.4 g/dL (12.0-15.0); Mean Corpuscular HGB Conc 32.1 g/dl (32-36); Mean Corpuscular Hemoglobin 30.3 pg (26-34); Mean Corpuscular Volume 94.5 fl (80-100); Mean Platelet Volume 9.6 fl (7.4-10.4); Platelet Count Result 321 k/mm3 (150-375); Red Blood Count 3.43 M/mm3 (4.2-5.4); Red Cell Distribution Width 15.7 % (11.5-14.5); White Blood Count 8.9 K/mm3 (4.5-10.0)
[2024-04-17 06:38] LABS: Alanine Aminotransferase 14 U/L (6-35); Albumin Level 3.9 g/dL (3.5-5.1); Alkaline Phosphatase 64 U/L (38-126); Anion Gap 8 mmol/L (4-12); Aspartate Amino Transferase 18 U/L (14-36); Bilirubin,Total 0.6 mg/dL (0.2-1.3); Blood Urea Nitrogen 12 mg/dL (7-17); Calcium 9.1 mg/dL (8.4-10.2); Carbon Dioxide 25 mmol/L (22-30); Chloride 109 mmol/L (98-107); Estimated CRCL calculation 77 ml/min; Estimated Glomerular Filt Rate > 60; Glucose 85 mg/dL (65-110); Magnesium 2.3 mg/dL (1.6-2.3); Potassium 3.6 mmol/L (3.4-5.0); Sodium 142 mmol/L (137-145)
[2024-04-17] MEDS: AMOXICILLIN/CLAVULANATE K 875-125 MG TAB 1 TABLET PO ×2 (10:00→20:30)
[2024-04-17] MEDS: GABAPENTIN 300 MG CAPSULE PO ×3 (10:00→18:00)
[2024-04-17] MEDS: OLANZapine 5 MG TABLET PO ×2 (10:00→20:31)
[2024-04-17] MEDS: APIXABAN 2.5 MG TABLET PO ×2 (10:00→20:31)
[2024-04-17] MEDS: levETIRAcetam 1000MG/NACL100ML 1,000 MG/100 ML BAG 400 MG IVPB ×2 (10:00→20:28)
--- NOTE | 2024-04-17 13:30 | PM.IMPN ---
Progress Note: A&P Assessment and Plan (1) Shock: Code(s): R57.9 - Shock, unspecified Status: Acute Assessment and Plan: In ICU-Patient presented with altered mental status, hypotension, refractory to IV fluid bolus per sepsis protocol, central line was inserted, patient started on Levophed Shock has improved and patient has been weaned off Levophed and IV fluid -likely etiology hypovolemia and colitis - Chest x-ray, UA were within normal limits -lactic acids and procalcitonin were normal -WBC count was within normal limits -initially was on Zosyn (04/08) which has been switched to Augmentin p.o. -04/10: Discontinue vancomycin since MRSA nares is negative -04/08: Blood cultures were obtained and negative till now (2) Colitis: Code(s): K52.9 - Noninfective gastroenteritis and colitis, unspecified Status: Acute Assessment and Plan: Infectious/inflammatory versus hypoperfusion colitis as seen on CT scan of the chest abdomen and pelvis as under Change Zosyn to p.o. Augmentin Currently denies any abdominal pain and no tenderness on exam -hemodynamic support 04/08: CT scan chest abdomen and pelvis Impression: Suspected minimal diffuse large bowel wall thickening. Correlate for infectious/inflammatory colitis, or any possibility of early ischemic bowel. Atherosclerotic calcification of the aorta with complete occlusion of the aorta at its infrarenal aspect. Probable partial reconstitution at the level of the bilateral common femoral arteries. Consider vascular surgery consultation/follow-up as indicated. (3) Altered mental status: Qualifiers: Altered mental status type: unspecified Qualified Code(s): R41.82 - Altered mental status, unspecified Code(s): R41.82 - Altered mental status, unspecified Status: Inactive Assessment and Plan: Altered mental status resolved after IV fluids and started on Levophed with her blood pressure is improving. (4) Epilepsy: Code(s): G40.909 - Epilepsy, unspecified, not intractable, without status epilepticus Status: Acute Assessment and Plan: Patient has history of epilepsy likely related to a CVA, on Keppra and Depakote at home -continue Keppra and Depakote (5) Pulmonary embolism: Code(s): I26.99 - Other pulmonary embolism without acute cor pulmonale Status: Acute Assessment and Plan: History of pulmonary embolism, continue home Eliquis (6) Autonomic neuropathy: Code(s): G90.9 - Disorder of the autonomic nervous system, unspecified Status: Acute Assessment and Plan: Patient has autonomic neuropathy, on midodrine at home which could be related also to hypotension since she has not been taking that for the last couple of days prior to admission -continue midodrine which she takes at home -midodrine could explain her sinus bradycardia (7) COPD (chronic obstructive pulmonary disease): Code(s): J44.9 - Chronic obstructive pulmonary disease, unspecified Status: Acute Assessment and Plan: DuoNebs p.r.n. (8) Dementia with psychosis: Code(s): F03.92 - Unspecified dementia, unspecified severity, with psychotic disturbance Status: Acute Assessment and Plan: Continue olanzapine (9) Schizophrenia: Code(s): F20.9 - Schizophrenia, unspecified Status: Acute Assessment and Plan: Medications as above (10) Pulmonary edema: Code(s): J81.1 - Chronic pulmonary edema Status: Acute Assessment and Plan: Patient requiring 2 L of oxygen. 04/14 Chest x-ray showed mild diffuse bilateral interstitial infiltrates Patient positive on intake and output balance Echo showed diastolic dysfunction and EF of 60-65 per Lasix IV 20 mg was given Check BNP Incentive spirometry Plan DVT prophylaxis: Eliquis Stress ulcer prophylaxis: Not indicated Nutrition: Regular diet ordered Code Status: Full code (patient has a state guardian) Incentive spirometry Continue PT OT Up in chair Subjective Date/time seen: 04/17/24 13:30 Interval history: Patient continues to being lethargic. Poor prognosis. Review of Systems Review of Systems: All systems reviewed & are unremarkable except as noted in HPI and below ROS unobtainable: Yes unobtainable due to medical condition (Schizophrenia and dementia) and unobtainable due to mental status Exam Narrative: General: Pleasant female in no acute distress HEENT:? Pupils equal and reactive, sclerae sclera, moist oral mucosa Neck:? Supple Respiratory:? Clear to auscultation bilaterally, decreased at bases, no wheezing, adequate air entry Cardiac:? S1-S2 normal, regular rate and rhythm Abdomen:? 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 Patient is awake, alert, orientedx1 . She does follow simple commands in all extremities, slow to respond Skin:? Normal skin turgor, no lesions noted, warm and dry Psych:? Flat affect Const: Other: Acutely ill-appearing, appears older than stated age, debilitated, lying in bed with head of bed flat, disheveled HENMT: Other: Mucous membranes are dry, poor dentition with broken teeth, head is normocephalic atraumatic, tongue deviates slightly to the left, nasal cannula in Eyes: Other: Pupils are equal and reactive, bilateral cataracts noted, no scleral icterus, eyes appear sunken Neck: Other: Thyroid see feels somewhat firm on the left side possible enlargement, trachea midline, patient older head turned to the left Resp: Other: Decreased breath sounds at the bases, no increased work of breathing Cardio: Other: Mildly bradycardic, 1+ bilateral radial pulses GI: Other: Distended, soft, normoactive bowel sounds : Other: Rock catheter in place with turbid appearing urine Skin: Other: Generalized pallor, no open wounds or sores, bruise to the right buttock, thickened dry dark material under fingernails Neuro: Other: The patient is oriented to name only, she does follow simple commands, her tongue does deviate slightly to the a left, pupils are equal and reactive, she moves bilateral upper extremities equally, weaker on left than right exam limited due to patient condition Extrem: Other: Skin over stump sites of bilateral [id number] amputations intact, moves bilateral upper extremities equally but and 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 Psych: Other: Initially obtunded, now responsive to verbal stimuli, pleasantly confused, cooperative Objective Data Vital Signs Vital Signs: Vital Signs - 24 hr 04/16/24 15:31 04/16/24 16:00 04/16/24 20:00 Temperature 97.5 F L Pulse Rate 61 56 L 65 Respiratory Rate 14 20 Blood Pressure 105/56 L Pulse Oximetry 94 93 Oxygen Delivery Room Air Fraction of Inspired Oxygen 28 04/16/24 20:00 04/16/24 21:20 04/17/24 00:00 Temperature 97.5 F L Pulse Rate 75 65 58 L Respiratory Rate 20 Blood Pressure 105/59 L Pulse Oximetry 93 Oxygen Delivery Fraction of Inspired Oxygen 04/17/24 04:00 04/17/24 05:59 04/17/24 08:00 Temperature 97.3 F L Pulse Rate 52 L 60 Respiratory Rate 20 Blood Pressure 94/59 L Pulse Oximetry 96 Oxygen Delivery Room Air Fraction of Inspired Oxygen 04/17/24 08:00 04/17/24 12:00 Temperature Pulse Rate 73 67 Respiratory Rate Blood Pressure Pulse Oximetry Oxygen Delivery Fraction of Inspired Oxygen Intake/Output Intake/Output: Intake & Output 04/14/24 04/15/24 04/16/24 04/17/24 23:59 23:59 23:59 23:59 Intake Total 1610 1360 680 370 Output Total 3425 600 2025 600 Balance -1815 515 -0357 -757 Meds/Results Medications: Active Medications Generic Name Dose Route Start Last Admin Trade Name Freq PRN Reason Stop Dose Admin Acetaminophen 650 mg 04/10/24 20:08 04/13/24 09:39 Acetaminophen 325 Mg Tablet PO 650 mg Q4H PRN Administration pain 1-3 or fever Albuterol/Ipratropium 3 ml 04/09/24 12:47 Ipratropium 0.5 Mg/Albuterol Sulfate 2.5 Mg Ampul.Neb 3 Ml INHALATION Q6HRT PRN respiratory ditress, wheezing Amoxicillin/Clavulanate Potassium 1 tablet 04/13/24 09:00 04/17/24 10:00 Amoxicillin/Clavulanate K 875-125 Mg Tab PO 04/19/24 08:59 1 tablet Q12HR CAROL Administration Apixaban 2.5 mg 04/09/24 21:00 04/17/24 10:00 Apixaban 2.5 Mg Tablet PO 2.5 mg Q12HR CAROL Administration Divalproex Sodium 250 mg 04/09/24 13:00 04/17/24 05:41 Divalproex Sodium Er 250 Mg Tab.24h PO 250 mg Q8HR CAROL Administration Gabapentin 300 mg 04/09/24 13:00 04/17/24 10:00 Gabapentin 300 Mg Capsule PO 300 mg TID CAROL Administration Levetiracetam 1,000 mg in 100 mls @ 400 mls/hr 04/09/24 21:00 04/17/24 10:00 Keppra Iv IVPB 400 mls/hr Q12HR CAROL Administration Midodrine 10 mg 04/10/24 14:00 04/17/24 05:41 Midodrine Hcl 10 Mg Tablet PO 10 mg Q8H CAROL Administration Mirtazapine 7.5 mg 04/09/24 21:00 04/16/24 20:28 Mirtazapine 7.5 Mg Tablet PO 7.5 mg HS CAROL Administration Olanzapine 5 mg 04/09/24 21:00 04/17/24 10:00 Olanzapine 5 Mg Tablet PO 5 mg Q12HR CAROL Administration Ondansetron HCl 4 mg 04/13/24 09:30 04/13/24 09:40 Ondansetron Inj 4 Mg/2 Ml Vial IV PUSH 4 mg Q4H PRN Administration Nausea And Vomiting Sodium Chloride 10 ml 04/09/24 06:00 04/17/24 05:41 Central Line Flush IV PUSH 10 ml Q8HR CAROL Administration Sodium Chloride 20 ml 04/09/24 03:40 Central Line Flush IV PUSH PRN PRN after blood draws Radiology Results: ITS Impressions Chest/Abdomen/Pelvis CT 04/09/24 05:16 Impression: Suspected minimal diffuse large bowel wall thickening. Correlate for infectious/inflammatory colitis, or any possibility of early ischemic bowel. Atherosclerotic calcification of the aorta with complete occlusion of the aorta at its infrarenal aspect. Probable partial reconstitution at the level of the bilateral common femoral arteries. Consider vascular surgery consultation/follow-up as indicated. Head CT 04/09/24 05:20 Impression: No intracranial hemorrhage, mass, or acute infarct. Moderate generalized cerebral atrophy, with more pronounced, severe cerebellar atrophy. Chronic left frontal lobe infarct with background chronic microvascular ischemic changes in the white matter. Chest X-Ray 04/13/24 08:30 Impression: 1: Mild diffuse bilateral interstitial infiltrates which may represent edema or pneumonia. Labs Labs: Laboratory Results - last 24 hr 04/17/24 06:01 WBC 8.9 RBC 3.43 L Hgb 10.4 L Hct 32.4 L MCV 94.5 MCH 30.3 MCHC 32.1 RDW 15.7 H Plt Count 321 MPV 9.6 Sodium 142 Potassium 3.6 Chloride 109 H Carbon Dioxide 25 Anion Gap 8 BUN 12 Creatinine 0.56 L Estim Creat Clear Calc 77 Estimated GFR > 60 Glucose 85 Calcium 9.1 Magnesium 2.3 Total Bilirubin 0.6 AST 18 ALT 14 Alkaline Phosphatase 64 Total Protein 7.0 Albumin 3.9 Quality VTE Prophylaxis VTE prophylaxis: pharmacologic ordered Hospitalist [facility] Advance Care Plan I have confirmed that the patient's Advanced Care Plan is present, code status is documented, or surrogate decision maker is listed in patient medical record.: Yes Medication Reconciliation I have utilized all available resources to obtain, update and review the patients current medications (includes all prescriptions, OTC, herbals, cannabis, and nutritional supplements).: Yes
[2024-04-17] MEDS: MIRTAZAPINE 7.5 MG TABLET PO (20:30)
[2024-04-17] MEDS: ACETAMINOPHEN 325 MG TABLET 650 MG PO (20:31)
[2024-04-18] VITALS: PULSE 57
[2024-04-18 04:00] VITALS: PULSE 59
[2024-04-18 04:49] VITALS: BP 121/75; PULSE 86; RESP 18; TEMP 36.6; O2SAT 94
[2024-04-18 05:27] LABS: Hematocrit 31.4 % (37.0-47.0); Hemoglobin 10.1 g/dL (12.0-15.0); Mean Corpuscular HGB Conc 32.2 g/dl (32-36); Mean Corpuscular Hemoglobin 30.1 pg (26-34); Mean Corpuscular Volume 93.5 fl (80-100); Mean Platelet Volume 9.5 fl (7.4-10.4); Platelet Count Result 305 k/mm3 (150-375); Red Blood Count 3.36 M/mm3 (4.2-5.4); Red Cell Distribution Width 15.6 % (11.5-14.5); White Blood Count 8.4 K/mm3 (4.5-10.0)
[2024-04-18 05:37] LABS: Alanine Aminotransferase 13 U/L (6-35); Alkaline Phosphatase 70 U/L (38-126); Anion Gap 8 mmol/L (4-12); Aspartate Amino Transferase 25 U/L (14-36); Bilirubin,Total 0.4 mg/dL (0.2-1.3); Blood Urea Nitrogen 10 mg/dL (7-17); Calcium 9.4 mg/dL (8.4-10.2); Carbon Dioxide 25 mmol/L (22-30); Chloride 107 mmol/L (98-107); Estimated CRCL calculation 89 ml/min; Estimated Glomerular Filt Rate > 60; Glucose 88 mg/dL (65-110); Magnesium 2.3 mg/dL (1.6-2.3); Potassium 3.7 mmol/L (3.4-5.0); Sodium 140 mmol/L (137-145)
[2024-04-18] MEDS: DIVALPROEX SODIUM ER 250 MG TAB.24H PO ×2 (05:54→14:41)
[2024-04-18] MEDS: CENTRAL LINE FLUSH 10 ML IV PUSH (05:54)
[2024-04-18] MEDS: MIDODRINE HCL 10 MG TABLET PO ×2 (05:54→14:41)
[2024-04-18] MEDS: APIXABAN 2.5 MG TABLET PO (07:56)
[2024-04-18] MEDS: GABAPENTIN 300 MG CAPSULE PO ×2 (07:56→14:41)
[2024-04-18] MEDS: AMOXICILLIN/CLAVULANATE K 875-125 MG TAB 1 TABLET PO (07:56)
[2024-04-18] MEDS: OLANZapine 5 MG TABLET PO (07:56)
[2024-04-18 08:00] VITALS: PULSE 55; O2SAT 94
[2024-04-18] MEDS: levETIRAcetam 500 MG TABLET 1000 MG PO (10:16)
--- NOTE | 2024-04-18 10:32 | P.PNIM_ITS ---
Progress Note: A&P Assessment and Plan (1) Shock: Code(s): R57.9 - Shock, unspecified Status: Acute Assessment and Plan: In ICU-Patient presented with altered mental status, hypotension, refractory to IV fluid bolus per sepsis protocol, central line was inserted, patient started on Levophed Shock has improved and patient has been weaned off Levophed and IV fluid -likely etiology hypovolemia and colitis - Chest x-ray, UA were within normal limits -lactic acids and procalcitonin were normal -WBC count was within normal limits -initially was on Zosyn (04/08) which has been switched to Augmentin p.o. -04/10: Discontinue vancomycin since MRSA nares is negative -04/08: Blood cultures were obtained and negative till now (2) Colitis: Code(s): K52.9 - Noninfective gastroenteritis and colitis, unspecified Status: Acute Assessment and Plan: Infectious/inflammatory versus hypoperfusion colitis as seen on CT scan of the chest abdomen and pelvis as under Change Zosyn to p.o. Augmentin Currently denies any abdominal pain and no tenderness on exam -hemodynamic support 04/08: CT scan chest abdomen and pelvis Impression: Suspected minimal diffuse large bowel wall thickening. Correlate for infectious/inflammatory colitis, or any possibility of early ischemic bowel. Atherosclerotic calcification of the aorta with complete occlusion of the aorta at its infrarenal aspect. Probable partial reconstitution at the level of the bilateral common femoral arteries. Consider vascular surgery consultation/follow-up as indicated. (3) Altered mental status: Qualifiers: Altered mental status type: unspecified Qualified Code(s): R41.82 - Altered mental status, unspecified Code(s): R41.82 - Altered mental status, unspecified Status: Inactive Assessment and Plan: Altered mental status resolved after IV fluids and started on Levophed with her blood pressure is improving. (4) Epilepsy: Code(s): G40.909 - Epilepsy, unspecified, not intractable, without status epilepticus Status: Acute Assessment and Plan: Patient has history of epilepsy likely related to a CVA, on Keppra and Depakote at home -continue Keppra and Depakote (5) Pulmonary embolism: Code(s): I26.99 - Other pulmonary embolism without acute cor pulmonale Status: Acute Assessment and Plan: History of pulmonary embolism, continue home Eliquis (6) Autonomic neuropathy: Code(s): G90.9 - Disorder of the autonomic nervous system, unspecified Status: Acute Assessment and Plan: Patient has autonomic neuropathy, on midodrine at home which could be related also to hypotension since she has not been taking that for the last couple of days prior to admission -continue midodrine which she takes at home -midodrine could explain her sinus bradycardia (7) COPD (chronic obstructive pulmonary disease): Code(s): J44.9 - Chronic obstructive pulmonary disease, unspecified Status: Acute Assessment and Plan: DuoNebs p.r.n. (8) Dementia with psychosis: Code(s): F03.92 - Unspecified dementia, unspecified severity, with psychotic disturbance Status: Acute Assessment and Plan: Continue olanzapine (9) Schizophrenia: Code(s): F20.9 - Schizophrenia, unspecified Status: Acute Assessment and Plan: Medications as above (10) Pulmonary edema: Code(s): J81.1 - Chronic pulmonary edema Status: Acute Assessment and Plan: Patient requiring 2 L of oxygen. 04/14 Chest x-ray showed mild diffuse bilateral interstitial infiltrates Patient positive on intake and output balance Echo showed diastolic dysfunction and EF of 60-65 per Lasix IV 20 mg was given Check BNP Incentive spirometry Plan DVT prophylaxis: Eliquis Stress ulcer prophylaxis: Not indicated Nutrition: Regular diet ordered Code Status: Full code (patient has a state guardian) Incentive spirometry Continue PT OT Up in chair Subjective Date/time seen: 04/18/24 10:32 Exam Narrative: General: Pleasant female in no acute distress HEENT:? Pupils equal and reactive, sclerae sclera, moist oral mucosa Neck:? Supple Respiratory:? Clear to auscultation bilaterally, decreased at bases, no wheezing, adequate air entry Cardiac:? S1-S2 normal, regular rate and rhythm Abdomen:? 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 Patient is awake, alert, orientedx1 . She does follow simple commands in all extremities, slow to respond Skin:? Normal skin turgor, no lesions noted, warm and dry Psych:? Flat affect Const: Other: Acutely ill-appearing, appears older than stated age, debilitated, lying in bed with head of bed flat, disheveled HENMT: Other: Mucous membranes are dry, poor dentition with broken teeth, head is normocephalic atraumatic, tongue deviates slightly to the left, nasal cannula in Eyes: Other: Pupils are equal and reactive, bilateral cataracts noted, no scleral icterus, eyes appear sunken Neck: Other: Thyroid see feels somewhat firm on the left side possible enlargement, trachea midline, patient older head turned to the left Resp: Other: Decreased breath sounds at the bases, no increased work of breathing Cardio: Other: Mildly bradycardic, 1+ bilateral radial pulses GI: Other: Distended, soft, normoactive bowel sounds : Other: Rock catheter in place with turbid appearing urine Skin: Other: Generalized pallor, no open wounds or sores, bruise to the right buttock, thickened dry dark material under fingernails Neuro: Other: The patient is oriented to name only, she does follow simple commands, her tongue does deviate slightly to the a left, pupils are equal and reactive, she moves bilateral upper extremities equally, weaker on left than right exam limited due to patient condition Extrem: Other: Skin over stump sites of bilateral [id number] amputations intact, moves bilateral upper extremities equally but and left hemodialysis patient care specialist strength is less than right Psych: Other: Initially obtunded, now responsive to verbal stimuli, pleasantly confused, cooperative Objective Data Vital Signs Vital Signs: Vital Signs - 24 hr 04/17/24 12:00 04/17/24 14:00 04/17/24 16:00 Temperature 98.1 F Pulse Rate 67 72 65 Respiratory Rate 16 Blood Pressure 92/60 L Pulse Oximetry 96 Oxygen Delivery Fraction of Inspired Oxygen 04/17/24 20:00 04/17/24 20:00 04/17/24 20:20 Temperature 98.0 F Pulse Rate 77 68 77 Respiratory Rate 18 18 Blood Pressure 105/57 L Pulse Oximetry 95 95 Oxygen Delivery Room Air Fraction of Inspired Oxygen 28 04/18/24 00:00 04/18/24 04:00 04/18/24 04:49 Temperature 97.8 F Pulse Rate 57 L 59 L 86 Respiratory Rate 18 Blood Pressure 121/75 Pulse Oximetry 94 Oxygen Delivery Fraction of Inspired Oxygen 04/18/24 08:00 04/18/24 08:00 Temperature Pulse Rate 55 L Respiratory Rate Blood Pressure Pulse Oximetry 94 Oxygen Delivery Room Air Fraction of Inspired Oxygen Intake/Output Intake/Output: Intake & Output 04/15/24 04/16/24 04/17/24 04/18/24 23:59 23:59 23:59 23:59 Intake Total 8535 716 4207 540 Output Total 600 2020 1450 1200 Balance 760 -1345 1390 -660 Meds/Results Medications: Active Medications Generic Name Dose Route Start Last Admin Trade Name Freq PRN Reason Stop Dose Admin Acetaminophen 650 mg 04/10/24 20:08 04/17/24 20:31 Acetaminophen 325 Mg Tablet PO 650 mg Q4H PRN Administration pain 1-3 or fever Albuterol/Ipratropium 3 ml 04/09/24 12:47 Ipratropium 0.5 Mg/Albuterol Sulfate 2.5 Mg Ampul.Neb 3 Ml INHALATION Q6HRT PRN respiratory ditress, wheezing Amoxicillin/Clavulanate Potassium 1 tablet 04/13/24 09:00 04/18/24 07:56 Amoxicillin/Clavulanate K 875-125 Mg Tab PO 04/19/24 08:59 1 tablet Q12HR CAROL Administration Apixaban 2.5 mg 04/09/24 21:00 04/18/24 07:56 Apixaban 2.5 Mg Tablet PO 2.5 mg Q12HR CAROL Administration Divalproex Sodium 250 mg 04/09/24 13:00 04/18/24 05:54 Divalproex Sodium Er 250 Mg Tab.24h PO 250 mg Q8HR CAROL Administration Gabapentin 300 mg 04/09/24 13:00 04/18/24 07:56 Gabapentin 300 Mg Capsule PO 300 mg TID CAROL Administration Levetiracetam 1,000 mg 04/18/24 10:10 04/18/24 10:16 Levetiracetam 500 Mg Tablet PO 1,000 mg Q12HR CAROL Administration Midodrine 10 mg 04/10/24 14:00 04/18/24 05:54 Midodrine Hcl 10 Mg Tablet PO 10 mg Q8H CAROL Administration Mirtazapine 7.5 mg 04/09/24 21:00 04/17/24 20:30 Mirtazapine 7.5 Mg Tablet PO 7.5 mg HS CAROL Administration Olanzapine 5 mg 04/09/24 21:00 04/18/24 07:56 Olanzapine 5 Mg Tablet PO 5 mg Q12HR CAROL Administration Ondansetron HCl 4 mg 04/13/24 09:30 04/13/24 09:40 Ondansetron Inj 4 Mg/2 Ml Vial IV PUSH 4 mg Q4H PRN Administration Nausea And Vomiting Sodium Chloride 10 ml 04/09/24 06:00 04/18/24 05:54 Central Line Flush IV PUSH 10 ml Q8HR CAROL Administration Sodium Chloride 20 ml 04/09/24 03:40 Central Line Flush IV PUSH PRN PRN after blood draws Radiology Results: ITS Impressions Chest/Abdomen/Pelvis CT 04/09/24 05:16 Impression: Suspected minimal diffuse large bowel wall thickening. Correlate for infectiou s/inflammatory colitis, or any possibility of early ischemic bowel. Atherosclerotic calcification of the aorta with complete occlusion of the aorta at its infrarenal aspect. Probable partial reconstitution at the level of the bilateral common femoral arteries. Consider vascular surgery consultation/follow-up as indicated. Head CT 04/09/24 05:20 Impression: No intracranial hemorrhage, mass, or acute infarct. Moderate generalized cerebral atrophy, with more pronounced, severe cerebellar atrophy. Chronic left frontal lobe infarct with background chronic microvascular ischemic changes in the white matter. Chest X-Ray 04/13/24 08:30 Impression: 1: Mild diffuse bilateral interstitial infiltrates which may represent edema or pneumonia. Labs Labs: Laboratory Results - last 24 hr 04/18/24 05:18 WBC 8.4 RBC 3.36 L Hgb 10.1 L Hct 31.4 L MCV 93.5 MCH 30.1 MCHC 32.2 RDW 15.6 H Plt Count 305 MPV 9.5 Sodium 140 Potassium 3.7 Chloride 107 Carbon Dioxide 25 Anion Gap 8 BUN 10 Creatinine 0.51 L Estim Creat Clear Calc 89 Estimated GFR > 60 Glucose 88 Calcium 9.4 Magnesium 2.3 Total Bilirubin 0.4 AST 25 ALT 13 Alkaline Phosphatase 70 Total Protein 7.0 Albumin 4.0
[2024-04-18 12:00] VITALS: PULSE 64
--- NOTE | 2024-04-18 13:44 | PM.DS ---
DS: Admitting Diagnosis Discharge Date 04/18/2024 Admitting Diagnosis altered mental status DS: Discharge Diagnosis Discharge Diagnosis (1) Shock: Code(s): R57.9 - Shock, unspecified Status: Acute Assessment and Plan: Resolved In ICU-Patient presented with altered mental status, hypotension, refractory to IV fluid bolus per sepsis protocol, central line was inserted, patient started on Levophed Shock has improved and patient has been weaned off Levophed and IV fluid -likely etiology hypovolemia and colitis - Chest x-ray, UA were within normal limits -lactic acids and procalcitonin were normal -WBC count was within normal limits -initially was on Zosyn (04/08) which has been switched to Augmentin p.o. -04/08: Blood cultures were obtained and negative till now -04/10: Discontinue vancomycin since MRSA nares is negative I assumed care on 04/16/2024. Patient downgraded to floor. In ICU patient treated for shock possibly due to colitis. (2) Colitis: Code(s): K52.9 - Noninfective gastroenteritis and colitis, unspecified Status: Acute Assessment and Plan: Infectious/inflammatory versus hypoperfusion colitis as seen on CT scan of the chest abdomen and pelvis as under Change Zosyn to p.o. Augmentin Currently denies any abdominal pain and no tenderness on exam -hemodynamic support 04/08: CT scan chest abdomen and pelvis Impression: Suspected minimal diffuse large bowel wall thickening. Correlate for infectious/inflammatory colitis, or any possibility of early ischemic bowel. Atherosclerotic calcification of the aorta with complete occlusion of the aorta at its infrarenal aspect. Probable partial reconstitution at the level of the bilateral common femoral arteries. Consider vascular surgery consultation/follow-up as indicated. (3) Epilepsy: Code(s): G40.909 - Epilepsy, unspecified, not intractable, without status epilepticus Status: Acute Assessment and Plan: Patient has history of epilepsy likely related to a CVA, on Keppra and Depakote at home -continue Keppra and Depakote (4) Pulmonary embolism: Code(s): I26.99 - Other pulmonary embolism without acute cor pulmonale Status: Acute Assessment and Plan: History of pulmonary embolism, continue home Eliquis (5) Autonomic neuropathy: Code(s): G90.9 - Disorder of the autonomic nervous system, unspecified Status: Acute Assessment and Plan: Patient has autonomic neuropathy, on midodrine at home which could be related also to hypotension since she has not been taking that for the last couple of days prior to admission -continue midodrine which she takes at home -midodrine could explain her sinus bradycardia (6) COPD (chronic obstructive pulmonary disease): Code(s): J44.9 - Chronic obstructive pulmonary disease, unspecified Status: Acute Assessment and Plan: DuoNebs p.r.n. (7) Dementia with psychosis: Code(s): F03.92 - Unspecified dementia, unspecified severity, with psychotic disturbance Status: Acute Assessment and Plan: Continue olanzapine (8) Schizophrenia: Code(s): F20.9 - Schizophrenia, unspecified Status: Acute Assessment and Plan: Medications as above (9) Pulmonary edema: Code(s): J81.1 - Chronic pulmonary edema Status: Acute Assessment and Plan: Patient requiring 2 L of oxygen. 04/14 Chest x-ray showed mild diffuse bilateral interstitial infiltrates Patient positive on intake and output balance Echo showed diastolic dysfunction and EF of 60-65 per Lasix IV 20 mg was given Check BNP Incentive spirometry DS: Summary Hospital Course Hospital Course: 58-year-old female with a past medical history of peripheral artery disease status post bilateral above knee amputations, schizophrenia, pulmonary embolism, tobacco use, essential hypertension, autonomic neuropathy on midodrine, dementia with psychosis, seizure disorder, COPD, hyperlipidemia and obstructive uropathy who presented to the ER via EMS from [facility] and rehab due to lethargy and altered mental status. Her EMS radio report the patient had been having fever at the residential for several days. Patient's temperature on EMS arrival 99.8. Patient was afebrile on presentation to the hospital. She was obtunded and would not respond to verbal stimuli initially. She was hypotensive on arrival. Blood pressures initially improved with 2 L fluid bolus but had recurrent hypotension despite 30 mL/kilos fluid resuscitation. She did have improved mentation after fluid resuscitation and was able to answer questions regarding her name. She initially stated the wrong last name but was able to correct herself after multiple attempts. She could not tell me her age and thought that the month was April in that the year was 2027. Oxygen saturations in the field was 89% on room air. Patient is placed on 2 L nasal cannula off and has been saturating 92-96% since arrival. Time Spent with Patient Time attestation: Total time spent providing and/or coordinating discharge services: Exam Narrative: General: Pleasant female in no acute distress HEENT:? Pupils equal and reactive, sclerae sclera, moist oral mucosa Neck:? Supple Respiratory:? Clear to auscultation bilaterally, decreased at bases, no wheezing, adequate air entry Cardiac:? S1-S2 normal, regular rate and rhythm Abdomen:? 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 Patient is awake, alert, orientedx1 . She does follow simple commands in all extremities, slow to respond Skin:? Normal skin turgor, no lesions noted, warm and dry Psych:? Flat affect Const: Other: Acutely ill-appearing, appears older than stated age, debilitated, lying in bed with head of bed flat, disheveled HENMT: Other: Mucous membranes are dry, poor dentition with broken teeth, head is normocephalic atraumatic, tongue deviates slightly to the left, nasal cannula in Eyes: Other: Pupils are equal and reactive, bilateral cataracts noted, no scleral icterus, eyes appear sunken Neck: Other: Thyroid see feels somewhat firm on the left side possible enlargement, trachea midline, patient older head turned to the left Resp: Other: Decreased breath sounds at the bases, no increased work of breathing Cardio: Other: Mildly bradycardic, 1+ bilateral radial pulses GI: Other: Distended, soft, normoactive bowel sounds : Other: Rock catheter in place with turbid appearing urine Skin: Other: Generalized pallor, no open wounds or sores, bruise to the right buttock, thickened dry dark material under fingernails Neuro: Other: The patient is oriented to name only, she does follow simple commands, her tongue does deviate slightly to the a left, pupils are equal and reactive, she moves bilateral upper extremities equally, weaker on left than right exam limited due to patient condition Extrem: Other: Skin over stump sites of bilateral [id number] amputations intact, moves bilateral upper extremities equally but and left washery boss strength is less than right Psych: Other: Initially obtunded, now responsive to verbal stimuli, pleasantly confused, cooperative DS: Data Data Completed and Pending Labs on day of discharge: Labs from last 24 hours 04/18/24 05:18 WBC 8.4 RBC 3.36 L Hgb 10.1 L Hct 31.4 L MCV 93.5 MCH 30.1 MCHC 32.2 RDW 15.6 H Plt Count 305 MPV 9.5 Sodium 140 Potassium 3.7 Chloride 107 Carbon Dioxide 25 Anion Gap 8 BUN 10 Creatinine 0.51 L Estim Creat Clear Calc 89 Estimated GFR > 60 Glucose 88 Calcium 9.4 Magnesium 2.3 Total Bilirubin 0.4 AST 25 ALT 13 Alkaline Phosphatase 70 Total Protein 7.0 Albumin 4.0 Discharge Plan Discharge Attending physician on discharge: Shreyas Gonzalez Consulting providers: Katia Chowdhury; Sanju Bonilla Discharging Clinician: Shreyas Gonzalez Anticipated Discharge Date/Time: 04/18/24 13:39 Patient Disposition: NH [facility]sp/Asst Living Activity: other - see discharge instructions Diet: regular Discharge Instructions: As per PT, she did not follow commands and required total assist of 2 for bed/wheelchair transfer. Use higher lift for transfer. Patient need to complete Augmentin until tomorrow. Avoid NSAIDs (ibuprofen, naproxen, Aleve). Tylenol is safe to take. Follow-up with your primary care provider in 1-2 weeks. Please call for appointment. Thank you for using [facility] for your health care needs. Patient Instructions: Antibiotic Form, Pain Management in Older Adults (DC) Patient Language: Thai Stand Alone Forms: General Discharge Information Discharge Medications: New amoxicillin-pot clavulanate 875-125 mg tablet 1 tablet PO Q12H Qty: 4 0RF Rx Instructions: Take 1 tab per day p.o. b.i.d. until 04/19 Continued alum-mag hydroxide-simeth [Maalox Advanced] 200-200-20 mg/5 mL suspension 20 ml PO QID PRN (Reason: upset stomach/gas) Rx Instructions: administer between meals and at bedtime apixaban 2.5 mg tablet 2.5 mg PO BID atorvastatin 20 mg tablet 20 mg PO HS docusate sodium 100 mg capsule 100 mg PO BID levetiracetam 1,000 mg tablet 1,000 mg PO BID midodrine 5 mg tablet 5 mg PO TID triamcinolone acetonide 0.1 % ointment 1 applic TOPICAL BID Rx Instructions: apply to face diclofenac sodium [Voltaren Arthritis Pain] 1 % gel 2 g topical TID Rx Instructions: apply to right shoulder sennosides [senna] 8.6 mg Tablet 8.6 mg PO BID acetaminophen [Tylenol] 325 mg Tablet 650 mg PO Q4-5H PRN (Reason: Pain) Patient Comments: do not exceed 3gram in 24hr polyethylene glycol 3350 [Miralax] 17 gram Powder In Packet 17 g PO DAILY olanzapine 5 mg Tablet 5 mg PO BID mirtazapine [Remeron] 15 mg Tablet 7.5 mg PO HS lorazepam [Ativan] 1 mg Tablet 1 mg PO BID bisacodyl 5 mg Tablet 5 mg PO DAILY PRN (Reason: constipation) divalproex 250 mg Tablet Extended Release 24 Hr 250 mg PO TID gabapentin 300 mg Tablet 300 mg PO TID Adults Multivitamin 18 mg iron-400 mcg-25 mcg Tablet 1 tablet PO DAILY Date of admission: 04/09/24 02:21 Primary Care Provider: PHYSICIAN,CARDIOLOGY SPECIALIST Admitting Provider: Elise Mathew Attending physician on admission: Elise Mathew Condition: Stable
[2024-04-18 14:00] VITALS: BP 100/62; PULSE 69; RESP 14; TEMP 37.3; O2SAT 95
== END 2024-04-18 15:52 | DRG 720 ==
LOC: ANHED 20:54 → ANHICU 04-09 03:22 → ANH2MED 04-16 03:03 → ANHICU 04-19 09:55
PROVIDERS: Internal Medicine; Admitting Provider Internal Medicine; Emergency Provider Emergency Medicine; Visit Provider General Practice
DX: A41.9 Sepsis, unspecified organism (principal); J96.01 Acute respiratory failure with hypoxia; R65.21 Severe sepsis with septic shock; K52.9 Noninfective gastroenteritis and colitis, unspecified; J44.9 Chronic obstructive pulmonary disease, unspecified; G40.802 Other epilepsy, not intractable, without status epilepticus; E78.5 Hyperlipidemia, unspecified; G90.9 Disorder of the autonomic nervous system, unspecified; I10 Essential (primary) hypertension; I73.9 Peripheral vascular disease, unspecified; F03.92 Unspecified dementia, unspecified severity, with psychotic disturbance; I69.898 Other sequelae of other cerebrovascular disease; F20.9 Schizophrenia, unspecified; J81.1 Chronic pulmonary edema; I70.0 Atherosclerosis of aorta; Z20.822 Contact with and (suspected) exposure to COVID-19; Z86.711 Personal history of pulmonary embolism; Z87.891 Personal history of nicotine dependence; Z95.5 Presence of coronary angioplasty implant and graft; Z89.612 Acquired absence of left leg above knee; Z89.611 Acquired absence of right leg above knee; Z79.01 Long term (current) use of anticoagulants
CPT/HCPCS: 36415; 36556; 36600; 70450; 71045; 71260; 74177; 80048; 80053; 80164; 80307; 81001; 82077; 82140; 82533; 82550; 82805; 83605; 83690; 83735; 83880; 84100; 84145; 84443; 84484; 85018; 85025; 85027; 85610; 85730; 86140; 87040; 87637; 87641; 93005; 93306; 96365; 96367; 97161; 99285; A9270; C1751; J1650; J1720; J1940; J1953; J2405; J2543; J3370; J3475; J3480; J7030; P9047; Q9967